=== PATIENT | female | born 1960 | race Caucasian/White ===

== ENCOUNTER → 2016-07-22 | Outpatient (CLI) | payer BC ==
[~2016-07-22] MED LIST: ASPI-983 PO; ATOR20TA66 PO; DEXA4TAB PO; ESOM40CA52 PO; GABA100C PO; HYDR-3730 PO; METO-272 PO; MULT-633 PO; OMEP20TA2 PO; ORPH100T PO; PANT40TA3 PO; PREG50CA2 PO; SMTR50T PO; SUCR1TAB PO; TRAM50TA2 PO
--- OUTSIDE RECORDS SUMMARY | 2016-07-22 11:58 | XMS REPORT | Continuity of Care Document ---
Author Author [facility] Organization [facility] Address Unknown Phone Unavailable Care Team Providers Care Sandblast Operator Name Role Phone JUVENAL OREILLY MD PCP Insurance Providers Payer Name Policy Number Subscriber Name Relationship [facility]ly [facility] [id number] Elly Bridges 18 Self / Same As Patient Advance Directives Directive Response Recorded Date/Time Advance Directives No 03/30/16 1:25am Health Care Power of Restuarant Crew Worker No 03/30/16 1:25am Organ Donor No 03/30/16 1:25am Resuscitation Status Full Code 03/30/16 1:25am Problems Active Problems Medical Problem Onset Date Status Abnormal finding on EKG Unknown Acute CAD (coronary artery disease), ione coronary artery Unknown Acute Chest pain Unknown Acute Gait instability Unknown Acute Gastric ulcer Unknown Acute Lumbar disc disease with radiculopathy Unknown Acute Nicotine dependence Unknown Acute Medications Current Home Medications Medication Dose Units Route Directions Days/Qty Instructions Start Date Multivitamin 1 Each 1 Tab Oral Daily 03/19/16 Sucralfate 1 Gm 1 Gm Oral Before Meals And At Bedtime 120 03/31/16 Pantoprazole Sodium 40 Mg 40 Mg Oral Twice A Day 60 03/31/16 Metoprolol Succinate 50 Mg 50 Mg Oral Daily 30 03/31/16 Aspirin 81 Mg 81 Mg Oral Daily 30 03/31/16 Atorvastatin Calcium 20 Mg 20 Mg Oral Bedtime 30 03/31/16 Past Home Medications Medication Directions Ordered Status Omeprazole 20 Mg Tablet.dr, 20 Mg Oral Twice A Day 07/07/11 Discontinued Sumatriptan Succinate 50 Mg Tablet, 50 Mg Oral As Directed 01/15/14 Discontinued Hydrocodone/Acetaminophen 1 Each Tablet, 1-2 Tab Oral Every 4-6HRS as needed for Pain 01/16/14 Discontinued Tramadol Hcl 50 Mg Tablet, 50 Mg Oral Every 6 Hours as needed for Pain Discontinued Orphenadrine Citrate 100 Mg Tablet.er, 50-100 Mg Oral Bedtime as needed for Muscle Spasms 03/19/16 Discontinued Dexamethasone 4 Mg Tablet, 4 Mg Oral Every 12 Hours 03/19/16 Discontinued Gabapentin 100 Mg Capsule, 200 Mg Oral Three Times A Day 03/19/16 Discontinued Esomeprazole Magnesium 40 Mg Capsule.dr, 40 Mg Oral Daily 03/29/16 Discontinued Sucralfate 1 Gm Tablet, 1 Gm Oral Before Meals And At Bedtime 03/29/16 Discontinued Social History Social History Problem Response Recorded Date/Time Alcohol Use Occasionally Uses 03/30/2016 1:26am Recreational Drug Use No 03/30/2016 1:26am Recent Foreign Travel No 03/30/2016 1:29am Recent Infectious Disease Exposure No 03/30/2016 1:29am Hospitalization with Isolation Denies 04/06/2016 6:34pm Smoking Status Current Everyday Smoker 03/30/2016 1:28am Type Used Cigarettes 04/06/2016 6:34pm Recent Hopitalizations No 03/30/2016 1:26am Hospitalization with Isolation Denies 04/06/2016 6:34pm Query Response Start Date Stop Date Smoking Status Current Everyday Smoker Hospital Discharge Instructions No hospital discharge instructions. Plan of Care Discharge Date 03/31/16 11:10am Instructions/Education Provided CARDIAC CATH DISCHARGE INSTRUC Prescriptions See Medication Section Functional Status Query Response Date Recorded Patient Orientation Person Place Time Situation Eyes Open April 06, 2016 6:34pm Comprehension Ability Understands Concepts March 30, 2016 9:00pm Allergies, Adverse Reactions, Alerts No known allergies. Immunizations No immunization records. Vital Signs Acute Vital Signs Vital Response Date/Time Temperature (Fahrenheit) 98.4 degrees F (97.6 - 99.5) 03/31/2016 8:30am Temperature (Calculated Celsius) 35.87377 degrees C (36.4 - 37.5) 03/31/2016 8:00am Temperature Source Tympanic 03/31/2016 8:00am Pulse Rate (adult) 65 bpm (60 - 90) 03/31/2016 8:00am Respiratory Rate 16 bpm (12 - 24) 03/31/2016 8:00am O2 Sat by Pulse Oximetry 95 % (88 - 100) 03/31/2016 8:00am Blood Pressure 123/73 mm Hg 03/31/2016 8:00am Blood Pressure Mean 90 mm Hg 03/31/2016 8:00am Pain Numeric Pain Scale 0-No Pain 03/31/2016 8:00am Pain Intensity 5 03/30/2016 1:52am Height (Feet) 5 feet 03/30/2016 1:45am Height (Inches) 2.00 inches 03/30/2016 1:45am Height (Calculated Centimeters) 157.939874 cm 03/30/2016 1:45am Weight (Pounds) 140 pounds 03/31/2016 6:00am Weight (Ounces) 14.0 oz 03/31/2016 6:00am Weight (Calculated Grams) 05679.826 gm 03/31/2016 6:00am Weight (Calculated Kilograms) 63.557253 kilograms 03/31/2016 6:00am Calculated BMI 25.6 03/30/2016 1:45am Capillary Refill Capillary Refill Less Than 3 Seconds 03/30/2016 4:45pm Capillary Refill Capillary Refill Less Than 3 Seconds 03/30/2016 4:45pm Results Laboratory Results Test Name Result Units Flags Reference Collection Date/Time Result Date/ Time Comments White Blood Count 14.0 10^3/uL H 4.3-11.0 03/18/2016 1:50pm 03/18/2016 2: 08pm Red Blood Count 4.38 10^6/uL 4.35-5.85 03/18/2016 1:50pm 03/18/2016 2: 08pm Hemoglobin 14.4 G/DL 11.5-16.0 03/18/2016 1:50pm 03/18/2016 2:08pm Hematocrit 43 % 35-52 03/18/2016 1:50pm 03/18/2016 2:08pm Mean Corpuscular Volume 97 FL 80-99 03/18/2016 1:50pm 03/18/2016 2: 08pm Mean Corpuscular Hemoglobin 33 PG 25-34 03/18/2016 1:50pm 03/18/2016 2: 08pm Mean Corpuscular Hemoglobin Concent 34 G/DL 32-36 03/18/2016 1:50pm 02/2016 2:08pm Red Cell Distribution Width 12.9 % 10.0-14.5 03/18/2016 1:50pm 2015 2:08pm Platelet Count 242 10^3/uL 130-400 03/18/2016 1:50pm 03/18/2016 2:08pm Mean Platelet Volume 10.3 FL 7.4-10.4 03/18/2016 1:50pm 03/18/2016 2: 08pm Neutrophils (%) (Auto) 73 % 42-75 03/18/2016 1:50pm 03/18/2016 2:08pm Lymphocytes (%) (Auto) 17 % 12-44 03/18/2016 1:50pm 03/18/2016 2:08pm Monocytes (%) (Auto) 9 % 0-12 03/18/2016 1:50pm 03/18/2016 2:08pm Eosinophils (%) (Auto) 0 % 0-10 03/18/2016 1:50pm 03/18/2016 2:08pm Basophils (%) (Auto) 0 % 0-10 03/18/2016 1:50pm 03/18/2016 2:08pm Neutrophils # (Auto) 10.2 X 10^3 H 1.8-7.8 03/18/2016 1:50pm 03/18/2016 2 :08pm Lymphocytes # (Auto) 2.4 X 10^3 1.0-4.0 03/18/2016 1:50pm 03/18/2016 2: 08pm Monocytes # (Auto) 1.3 X 10^3 H 0.0-1.0 03/18/2016 1:50pm 03/18/2016 2: 08pm Eosinophils # (Auto) 0.0 10^3/uL 0.0-0.3 03/18/2016 1:50pm 03/18/2016 2 :08pm Basophils # (Auto) 0.0 10^3/uL 0.0-0.1 03/18/2016 1:50pm 03/18/2016 2: 08pm Neutrophils % (Manual) 77 % 03/18/2016 1:50pm 03/18/2016 2:25pm Band Neutrophils 1 % 03/18/2016 1:50pm 03/18/2016 2:25pm Lymphocytes % (Manual) 15 % 03/18/2016 1:50pm 03/18/2016 2:25pm Monocytes % (Manual) 7 % 03/18/2016 1:50pm 03/18/2016 2:25pm Eosinophils % (Manual) 0 % 03/18/2016 1:50pm 03/18/2016 2:25pm Basophils % (Manual) 0 % 03/18/2016 1:50pm 03/18/2016 2:25pm Blood Morphology Comment NORMAL 03/18/2016 1:50pm 03/18/2016 2: 25pm Sodium Level 139 MMOL/L 135-145 03/18/2016 1:50pm 03/18/2016 2:24pm Potassium Level 3.9 MMOL/L 3.6-5.0 03/18/2016 1:50pm 03/18/2016 2:24pm Chloride Level 103 MMOL/L 98-107 03/18/2016 1:50pm 03/18/2016 2:24pm Carbon Dioxide Level 22 MMOL/L 21-32 03/18/2016 1:50pm 03/18/2016 2: 24pm Anion Gap 14 MMOL/L 5-14 03/18/2016 1:50pm 03/18/2016 2:24pm Blood Urea Nitrogen 13 MG/DL 7-18 03/18/2016 1:50pm 03/18/2016 2:24pm Creatinine 0.73 MG/DL 0.60-1.30 03/18/2016 1:50pm 03/18/2016 2:24pm BUN/Creatinine Ratio 18 03/18/2016 1:50pm 03/18/2016 2:24pm Estimat Glomerular Filtration Rate > 60 03/18/2016 1:50pm 2015 2:24pm GFR INTERPRETIVE DATA UNITS FOR ESTIMATED GFR (eGFR): mL/min/1.73 M2 REFERENCE RANGE FOR ESTIMATED GFR (eGFR) eGFR NORMAL eGFR >60 MODERATELY DECREASED eGFR 30-59 SEVERLY DECREASED eGFR 15-29 KIDNEY FAILURE <15 (OR DIALYSIS) Glucose Level 89 MG/DL 70-105 03/18/2016 1:50pm 03/18/2016 2:24pm Calcium Level 10.5 MG/DL H 8.5-10.1 03/18/2016 1:50pm 03/18/2016 2:24pm Total Bilirubin 0.5 MG/DL 0.1-1.0 03/18/2016 1:50pm 03/18/2016 2:24pm Alkaline Phosphatase 90 U/L 40-136 03/18/2016 1:50pm 03/18/2016 2:24pm Aspartate Amino Transf (AST/SGOT) 32 U/L 5-34 03/18/2016 1:50pm 2015 2:24pm Alanine Aminotransferase (ALT/SGPT) 56 U/L H 0-55 03/18/2016 1:50pm 03/18 2:24pm Total Protein 7.4 G/DL 6.4-8.2 03/18/2016 1:50pm 03/18/2016 2:24pm Albumin 4.5 G/DL 3.2-4.5 03/18/2016 1:50pm 03/18/2016 2:24pm Pending Laboratory Results Test Name Collection Date/Time Procedures Procedure Status Date Provider(s) Esophagogastroduodenoscopy (EGD) with dilation Completed 03/31/16 BEKA LEVY DO Esophagogastroduodenoscopy (EGD) Active 03/31/16 BEKA LEVY DO Tracing only of electrocardiogram Completed 03/25/16 JADA BUCHANAN Tracing only of electrocardiogram Completed 03/29/16 FAUSTINO COTE DO Tracing only of electrocardiogram Completed 03/30/16 JUVENAL OREILLY MD Color Doppler echocardiography Active 03/30/16 NATIVIDAD CONTRERAS MD [facility] Tracing only of electrocardiogram Completed 03/30/16 NATIVIDAD CONTRERAS MD [facility] Encounters Encounter Location Arrival/Admit Date Discharge/Depart Date Attending Provider Departed [facility] 03/29/16 11:50pm 03/31/16 11:10am JUVENAL OREILLY MD Registered Clinic [facility] 03/25/16 4:38pm JADA BUCHANAN Discharged Inpatient (obs) [facility] 03/18/16 6:50pm 10:20am JUVENAL OREILLY MD Recent Diagnosis Chest pain Gait instability Gastric ulcer Lumbar disc disease with radiculopathy Nicotine dependence
--- NOTE | 2016-07-31 09:07 | ECHOCARDIOGRAPHY REPORT ---
PROCEDURE PHYSICIAN: NATIVIDAD HACKETT DATE OF PROCEDURE: 07/22/2016 TWO DIMENSIONAL ECHOCARDIOGRAM REPORT PRIMARY PHYSICIAN: Dr. Costello OTHER PHYSICIAN: Dr. Hackett REFERRING PHYSICIAN: ORDERING PHYSICIAN: Livier Yanez APRN INDICATION FOR THE PROCEDURE: Coronary artery disease, hypertension MEASUREMENTS DERIVED VALUES LV DIAMETER (LAX) NORMALS NORMALS Diastolic 4.5 (3.6-5.2) Eject. Fract. (60%+/-6%) Systolic (2.3-3.9) Diastolic Vol. % Shortening (0.22-0.42) Systolic Vol. Aortic Root 2.2 IVS THICKNESS Diastolic 1. (0.6-1.1) LVPW THICKNESS Diastolic 1. (0.6-1.1) LA DIAMETER Systolic 3.9 (2.1-3.7) DESCRIPTION: Two-dimensional echocardiography shows normal global left ventricular systolic function with normal regional wall motion. Aortic, mitral and tricuspid valve leaflets show good leaflet excursion. There is no significant pericardial effusion. No distinct regional wall motion abnormalities are seen. Doppler imaging shows trivial, mitral, tricuspid and pulmonic regurgitation. The aortic valve appears to be trileaflet. There is no Doppler evidence of any significant valvular stenosis. Pulmonary artery systolic pressure is estimated to be approximately 30 mmHg. There is no evidence of significant intracardiac shunt on this transthoracic echocardiographic study. Inferior vena cava appears mildly dilated but does exhibit inspiratory collapse. CONCLUSIONS: 1. Normal global left ventricular systolic function with normal regional wall motion and left ventricular ejection fraction of approximately 50%. 2. Trivial, mitral, tricuspid and pulmonic regurgitation. 3. No evidence of any significant valvular stenosis. 4. Pulmonary artery systolic pressure is estimated to be approximately 30 mmHg. Job ID: [id number] Dictated Date: 07/30/2016 15:23:00 Manager Quantitative Date: 07/31/2016 09:01:54 / [place]
== END ==
LOC: CARD 11:52
PROVIDERS: ATTEND Nurse Practitioner Family
DX: I25.10 Atherosclerotic heart disease of native coronary artery without angina pectoris (principal); I10 Essential (primary) hypertension; I34.1 Nonrheumatic mitral (valve) prolapse; R00.2 Palpitations
CPT/HCPCS: 93306

== ENCOUNTER 2016-09-24 10:54 | Outpatient (CLI) | payer BC ==
[~2016-09-24] VITALS: Ht 157.5 cm; Wt 63.9 kg
[2016-09-24] MEDS ORDERED: TRIAMCINOLONE ACET (KENALOG-40) 40 MG/ML 1 ML VIAL ONE (10:58)
[2016-09-24] MEDS ORDERED: BUPIVACAINE 0.25% 30 ML (SENSORCAINE) VIAL ONE (10:58)
[2016-09-24 11:10] VITALS: BP 155/98
[2016-09-24 11:47] VITALS: BP 167/80
--- NOTE | 2016-09-24 12:33 | Pain Medicine-Procedure ---
Procedure Pre-Op/Post-Op Diagnosis Diagnosis: disc disorder with radiculopathy, lumbar Indications for Operation Low back pain Attending Surgeon Hermann Procedure Date of Service: September 24, 2016 Procedure: Lumbar Epidural Steroid Injection at the L4-L5 level under Fluoroscopic Guidance Procedure: Patient was identified in the holding area. After risks, benefits, and alternatives were discussed with the patient, informed consent was obtained. Patient was brought to the fluoroscopy suite and placed prone on the procedure room table. A time out was performed. Vital signs were monitored throughout the procedure. The patients low back was prepped and draped in the usual sterile fashion. The patients skin was anesthetized using 2% Lidocaine. A Tuohy needle was inserted and advanced to the L4-L5 epidural space under fluoroscopic guidance using the loss of resistance technique and intermittent projection of fluoroscopy. There was no paresthesia with needle placement. The needle position was confirmed in both the AP and lateral view. After negative aspiration 2ml of contrast was injected under live fluoroscopy which showed good spread of the contrast in the epidural space at the appropriate level, there was no intravascular or subarachnoid spread. Again, after negative aspiration for heme or CSF, 2 ml of 0.25% Bupivicaine, 2ml of preservative free normal saline, and 80mg of Kenalog was injected. The needle was removed and a sterile bandage was placed and the patient was transferred to the recovery area in stable condition. After a brief period of observation, patient was discharged to home with no new neurological deficits and no apparent complications. Complications None HANK HESTER MD September 24, 2016 12:33 pm
== END 2016-09-24 11:49 | disposition home or self-care (01) ==
LOC: CARD 10:54
PROVIDERS: ATTEND Pain Medicine Pain Medicine
DX: M51.16 Intervertebral disc disorders with radiculopathy, lumbar region (principal)
CPT/HCPCS: 62323

== ENCOUNTER 2017-06-06 09:00 | Outpatient (CLI) | payer BC ==
[~2017-06-06] VITALS: Ht 157.5 cm; Wt 59.4 kg
[~2017-06-06 09:00] MED LIST changes: -METO-272 PO; +METO-370 PO
[2017-06-06] MEDS ORDERED: SUCR1TAB PO (09:34)
[2017-06-06] MEDS ORDERED: ASPI-586 PO (09:34)
[2017-06-06] MEDS ORDERED: METO-370 PO (09:34)
[2017-06-06] MEDS ORDERED: PANT40TA3 PO (09:34)
[2017-06-06] MEDS ORDERED: ATOR20TA66 PO (09:34)
== END 2017-06-06 09:36 ==
LOC: PREOP 09:00
PROVIDERS: ATTEND Surgery
DX: Z01.818 Encounter for other preprocedural examination (principal); K22.70 Barrett's esophagus without dysplasia

== ENCOUNTER 2017-06-07 08:44 | Day surgery (SDC) | payer BC ==
[~2017-06-07] VITALS: Ht 157.5 cm; Wt 59.4 kg
[~2017-06-07 08:44] MED LIST changes: +ASPI-586 PO
[2017-06-07] MEDS ORDERED: LACTATED RINGERS 1,000 ML IV STA (09:03)
[2017-06-07 09:22] VITALS: BP 128/72
--- NOTE | 2017-06-07 10:26 | Progress Note-Pre Operative ---
Pre-Operative Progress Note H&P Reviewed The H&P was reviewed, patient examined and no changes noted. Date Seen by Provider: Jun 07, 2017 Time Seen by Provider: 10:25 Date H&P Reviewed: Jun 07, 2017 Time H&P Reviewed: 10:25 Pre-Operative Diagnosis: history of shannon's, hiatal hernia, gerd BEKA LEVY DO Jun 07, 2017 10:26
[2017-06-07] MEDS ORDERED: MIDAZOLAM 2 MG/2 ML (VERSED) VIAL ONE (10:35)
[2017-06-07] MEDS ORDERED: proPOfol 200 MG/20 ML (DIPRIVAN) VIAL IV ONE (10:35)
--- NOTE | 2017-06-07 11:02 | Progress Note-Post Operative ---
Post-Operative Progess Note Surgeon (s)/Laboratory Sample Carrier (s) Surgeon BEKA LEVY DO Laboratory Sample Carrier: na Pre-Operative Diagnosis history of shannon's, hiatal hernia, gerd Post-Operative Diagnosis hiatal hernia, short segment barretts Procedure & Operative Findings Date of Procedure 06/07/17 Procedure Performed/Findings egd c biopsies Anesthesia Type per [facility] Estimated Blood Loss Estimated blood loss (mL): scant Specimens/Packing Specimens Removed ge junction short segment barretts BEKA LEVY DO Jun 07, 2017 11:02
--- NOTE | 2017-06-07 11:03 | Discharge Inst-Simple/Standard ---
Discharge Inst-Standard Patient Instructions/Follow Up Plan of Care/Instructions/FU: 2 weeks Sarah Activity as Tolerated: Yes Discharge Diet: Regular Diet BEKA LEVY DO Jun 07, 2017 11:03
[2017-06-07] MEDS ORDERED: HURRICAINE EXT TUBE (BENZOCAINE) ONE (11:06)
[2017-06-07 11:15] VITALS: BP 97/59
[2017-06-07 11:55] VITALS: BP 132/76
[2017-06-07] MEDS ORDERED: HURRICAINE EXT TUBE (BENZOCAINE) XX ONE (12:00)
[2017-06-07 12:10] VITALS: BP 132/76
--- NOTE | 2017-06-07 16:26 | OPERATIVE REPORT ---
DATE OF SERVICE: 06/07/2017 PREOPERATIVE DIAGNOSES: Sin's esophagus, hiatal hernia, gastroesophageal reflux disease. POSTOPERATIVE DIAGNOSES: Hiatal hernia and short segment Sin's. PROCEDURE: EGD with biopsies four quadrants. SURGEON: Beka Smith DO ANESTHESIA: Per MDA. ESTIMATED BLOOD LOSS: Scant. COMPLICATIONS: None. INDICATIONS: The patient is a 56-year-old female with history of Sin's esophagus. She understands risks and benefits of procedure and wished to proceed with procedure. Consent was signed in the chart. DESCRIPTION OF PROCEDURE: The patient was taken to the endoscopy suite, placed in left lateral recumbent position. Timeout was performed. Scope was inserted into mouth, down into esophagus, stomach and into the duodenum. There are no polyps, masses or ulcerations. The scope was then slowly retracted back into the stomach, which was further insufflated. There are no polyps, masses or ulcerations. . Scope was retroflexed noting a small hiatal hernia. Scope was returned to its normal position, slowly withdrawn and there was a short segment of Sin's at the GE junction 4 quadrant biopsy was performed. No other pathology noted. The scope was slowly retracted back until completely removed. The patient tolerated the procedure well without any complications. She was taken to recovery room in stable condition. RECOMMENDATIONS: The patient will follow up on biopsies. I would recommend repeat an EGD in approximately 2 to 3 years for continued surveillance. Job ID: [id number] DocumentID: [id number] Dictated Date: 06/07/2017 11:06:34 Photonics Engineering Technician Date: 06/07/2017 16:25:22 Dictated By: BEKA SMITH DO
== END 2017-06-07 12:00 | disposition home or self-care (01) ==
LOC: ENDO 08:44
PROVIDERS: ATTEND Surgery
DX: K22.70 Barrett's esophagus without dysplasia (principal); K21.9 Gastro-esophageal reflux disease without esophagitis; K44.9 Diaphragmatic hernia without obstruction or gangrene; I48.0 Paroxysmal atrial fibrillation; I25.10 Atherosclerotic heart disease of native coronary artery without angina pectoris; I10 Essential (primary) hypertension; F17.210 Nicotine dependence, cigarettes, uncomplicated; Z79.82 Long term (current) use of aspirin; Z79.899 Other long term (current) drug therapy

== ENCOUNTER → 2018-06-06 | Outpatient (CLI) | payer BC ==
--- NOTE | 2018-06-06 11:40 | Diagnostic Imaging Report ---
PROCEDURE: US Gallbladder. TECHNIQUE: Multiple real-time grayscale images were obtained over the right upper quadrant in various projections. INDICATION: Epigastric pain. FINDINGS: As noted on the previous exam of 03/30/2016, the liver is more echogenic than usually seen. This appearance does suggest fatty metamorphosis. There is no focal mass involving the liver and the biliary tree is not abnormally dilated. The liver itself is not enlarged. Spectral and color flow imaging of the portal vein and the hepatic vein show that the veins are patent and that there is normal direction of flow within the veins. There is no evidence for cholelithiasis or acute cholecystitis and the common bile duct is not dilated. The right kidney is unremarkable. The pancreas and proximal aorta are partially obscured by bowel gas. IMPRESSION: 1. There is no acute abnormality of the right upper quadrant. In particular, there is no sign of acute cholecystitis. 2. If clinical concern regarding an underlying abnormality of the gallbladder persists and further evaluation is desired, then a nuclear medicine hepatobiliary scan will be recommended. 3. The appearance of the liver does suggest fatty metamorphosis. Dictated by: Dictated on workstation # [id number]
== END ==
LOC: RAD 07:35
PROVIDERS: ATTEND Surgery
DX: R10.13 Epigastric pain (principal)
CPT/HCPCS: 76705

== ENCOUNTER → 2018-06-16 | Outpatient (CLI) | payer BC ==
[~2018-06-16] MED LIST changes: +CATHETER FLUSH 10 ML SYR IV PRN
--- NOTE | 2018-06-16 21:13 | Diagnostic Imaging Report ---
INDICATION: Epigastric pain. Patient was administered 5.4 mCi technetium-99m Choletec intravenously and imaging of the abdomen was performed. At one hour, patient ingested 8 ounces of Ensure and gallbladder ejection fraction was calculated. FINDINGS: There is homogeneous uptake of activity by the liver. There is prompt excretion of activity into the common duct with passage into the gallbladder. There is also passage into the small bowel. Gallbladder ejection fraction is normal at 55%. IMPRESSION: Normal HIDA scan and gallbladder ejection fraction. Dictated by: Dictated on workstation # [id number]
== END ==
LOC: CARD 11:21
PROVIDERS: ATTEND Surgery
DX: R10.13 Epigastric pain (principal)
CPT/HCPCS: 78227

== ENCOUNTER 2018-07-06 08:30 | Outpatient (CLI) | payer BC ==
[~2018-07-06] VITALS: Ht 157.5 cm; Wt 59.4 kg
[~2018-07-06 08:30] MED LIST changes: -CATHETER FLUSH 10 ML SYR IV PRN
== END 2018-07-06 08:52 ==
LOC: PREOP 08:30
PROVIDERS: ATTEND Surgery
DX: Z01.818 Encounter for other preprocedural examination (principal)

== ENCOUNTER 2018-07-07 09:56 | Day surgery (SDC) | payer BC ==
[~2018-07-07] VITALS: Ht 157.5 cm; Wt 59.4 kg
[2018-07-07] MEDS ORDERED: LACTATED RINGERS 1,000 ML IV ONE (10:03)
[2018-07-07 10:05] VITALS: BP 122/95
[2018-07-07] MEDS ORDERED: LACTATED RINGERS 1,000 ML IV STA (10:14)
[2018-07-07] MEDS ORDERED: HURRICAINE EXT TUBE (BENZOCAINE) XX PRN (10:15)
--- NOTE | 2018-07-07 11:21 | Progress Note-Pre Operative ---
Pre-Operative Progress Note H&P Reviewed The H&P was reviewed, patient examined and no changes noted. Date Seen by Provider: Jul 07, 2018 Time Seen by Provider: 11:21 Date H&P Reviewed: Jul 07, 2018 Time H&P Reviewed: 11:21 Pre-Operative Diagnosis: epigastric abdominal pain BEKA LEVY DO Jul 07, 2018 11:21
[2018-07-07] MEDS ORDERED: fentaNYL INJECTION 100 MCG/2 ML AMP ONE (11:37)
[2018-07-07] MEDS ORDERED: LIDOCAINE JELLY 2% 6 ML SYRINGE ONE (11:37)
[2018-07-07] MEDS ORDERED: proPOfol 200 MG/20 ML (DIPRIVAN) VIAL IV ONE (12:02)
[2018-07-07] MEDS ORDERED: MIDAZOLAM 2 MG/2 ML (VERSED) VIAL ONE (12:02)
--- NOTE | 2018-07-07 12:18 | Progress Note-Post Operative ---
Post-Operative Progess Note Surgeon (s)/Registered Radiation Therapist (s) Surgeon BEKA LEVY DO Registered Radiation Therapist: na Pre-Operative Diagnosis epigastric abdominal pain Post-Operative Diagnosis small hiatal hernia Procedure & Operative Findings Date of Procedure 07/07/18 Procedure Performed/Findings egd c biopsies Anesthesia Type per mda Estimated Blood Loss Estimated blood loss (mL): na Specimens/Packing Specimens Removed antrum, ge BEKA LEVY DO Jul 07, 2018 12:18
--- NOTE | 2018-07-07 12:19 | Discharge Inst-Simple/Standard ---
Discharge Inst-Standard Patient Instructions/Follow Up Plan of Care/Instructions/FU: 2 weeks carmen Activity as Tolerated: Yes Discharge Diet: Regular Diet BEKA LEVY DO Jul 07, 2018 12:19
[2018-07-07] MEDS ORDERED: HURRICAINE EXT TUBE (BENZOCAINE) ONE (12:34)
--- NOTE | 2018-07-07 12:34 | Anesthesia-General Post-Op ---
MAC Patient Condition Mental Status/LOC: Same as Preop Cardiovascular: Satisfactory Nausea/Vomiting: Absent Respiratory: Satisfactory Pain: Controlled Complications: Absent Post Op Complications Complications None Follow Up Care/Instructions Patient Instructions None needed. Anesthesiology Discharge Order Discharge Order Patient is doing well, no complaints, stable vital signs, no apparent adverse anesthesia problems. No complications reported per nursing. ADILIA GODOY CRNA Jul 07, 2018 12:34
[2018-07-07 12:35] VITALS: BP 142/92
[2018-07-07 12:59] VITALS: BP 134/92
[2018-07-07 13:00] VITALS: BP 134/92
--- NOTE | 2018-07-07 23:24 | OPERATIVE REPORT ---
DATE OF SERVICE: 07/07/2018 PREOPERATIVE DIAGNOSIS: Epigastric abdominal pain. POSTOPERATIVE DIAGNOSIS: Small hiatal hernia. PROCEDURE: EGD with biopsy. SURGEON: Beka Smith DO. ANESTHESIA: Per MDA. ESTIMATED BLOOD LOSS: None. COMPLICATIONS: None. INDICATIONS: The patient is a 58-year-old female who has been having epigastric abdominal pain. She had gallbladder workup, which was negative. She understands risks and benefits of procedure and wished to proceed with procedure. Consent was signed in the chart. DESCRIPTION OF PROCEDURE: The patient was taken to the endoscopy suite, placed in left lateral recumbent position. Timeout was performed. Scope was inserted into the mouth, down the esophagus, stomach and into the duodenum without difficulty. There were no polyps, masses or ulcerations in the duodenum. Scope was slowly retracted back into the stomach where it was further insufflated some slight erythematous changes. Biopsy was obtained. Scope was retroflexed noting a small gastric benign polyp and a small hiatal hernia. Scope was returned to its normal position, slowly withdrawn to the distal esophagus, which had some slight erythematous changes. Biopsy was obtained. Scope was then slowly retracted back to completely remove, noting no other pathology. The patient tolerated procedure well without any complications. She was taken to recovery room in stable condition. RECOMMENDATIONS: The patient will continue on current medications. She will follow up in 2 weeks to see how her symptoms and follow up on her pathology. Job ID: [id number] DocumentID: [id number] Dictated Date: 07/07/2018 12:31:33 Embedded Linux Engineer Date: 07/07/2018 23:23:50 Dictated By: BEKA SMITH DO
--- OUTSIDE RECORDS SUMMARY | 2018-07-09 09:06 | XMS REPORT | CCD ---
Author Author Vale Youngblood Organization [facility] Address [address] [place] [address] Phone Care Team Providers Care Drug Safety Assistant Name Role Phone PP Unavailable CCM Unavailable Summary Purpose Interface Exchange Insurance Providers Payer name Policy type / Coverage type Covered green party ID Effective Begin Date Effective End Date [facility] [id number] Unknown Family history Father Diagnosis Age At Onset Coronary Artery Disease Unknown Arthritis Unknown Grandmother Diagnosis Age At Onset Breast cancer Unknown Mother Diagnosis Age At Onset Arthritis Unknown Son Diagnosis Age At Onset Arthritis Unknown Social History Social History Element Codes Description Effective Dates Marital status Unknown [place] 09/27/2014 Marital status Unknown 09/27/2014 Number of children Unknown 2 09/27/2014 Number of children Unknown 2 09/27/2014 Employment Unknown Currently employed [employer] 09/27/[address]: 08359957 Currently smokes tobacco 09/27/[address]: 43660349 Currently smokes tobacco 09/27/2014 Number of cigarettes/day Unknown 10 ( Half a pack) 09/27/2014 Number of cigarettes/day Unknown 10 ( Half a pack) 09/27/[address]: 909486 Currently drinks alcohol 09/27/[address]: 900769 Currently drinks alcohol 09/27/2014 Frequency of drinks SNOMED CT: 847077716 1-4 drinks per week 09/27/2014 Frequency of drinks SNOMED CT: 211442116 1-4 drinks per week 09/27/2014 Allergies, Adverse Reactions, Alerts Substance Reaction Codes Entered Date Inactivated Date Status * NO KNOWN DRUG ALLERGIES Unknown 09/27/2014 No Inactive Date Active * NO KNOWN DRUG ALLERGIES Unknown 09/27/2014 No Inactive Date Active Past Medical History Illness Codes Condition Status Onset Date Resolved Date Gastro-esophageal reflux disease with esophagitis ICD-9: 530.11 ICD-10: K21.0 Active 03/24/2016 Unknown Hypertension Unknown Active 12/28/2017 Unknown Dysuria ICD-9: 788.1 ICD-10: R30.0 Active 12/28/2017 Unknown Essential (primary) hypertension ICD-9: 401.9 ICD-10: I10 Active 03/24/2016 Unknown Generalized anxiety disorder ICD-9: 300.02 ICD-10: F41.1 Active 07/22/2016 Unknown Low back pain ICD-9: 724.2 ICD-10: M54.5 Active 03/24/2016 Unknown Pelvic and perineal pain ICD-9: [id number] ICD-10: R10.2 Active 03/15/2016 Unknown Pain in left finger(s) ICD-9: 729.5 ICD-10: M79.645 Active 08/12/2015 Unknown Paresthesia of skin ICD-9: 782.0 ICD-10: R20.2 Active 08/12/2015 Unknown Migraine, unspecified, not intractable, without status migrainosus ICD-9: 346.90 ICD-10: G43.909 Active 07/02/2015 Unknown Other hypertrophic disorders of the skin ICD-9: 701.9 ICD-10: L91.8 Active 07/02/2015 Unknown Well adult exam ICD-9 : V70.0 Active 09/26/2014 Unknown Problems Condition Codes Effective Dates Condition Status Gastro-esophageal reflux disease with esophagitis ICD-9: 530.11 ICD-10: K21.0 03/24/2016 Active Hypertension Unknown 12/28/2017 Active Dysuria ICD-9: 788.1 ICD-10: R30.0 12/28/2017 Active Essential (primary) hypertension ICD-9: 401.9 ICD-10: I10 03/24/2016 Active Generalized anxiety disorder ICD-9: 300.02 ICD-10: F41.1 07/22/2016 Active Low back pain ICD-9: 724.2 ICD-10: M54.5 03/24/2016 Active Pelvic and perineal pain ICD-9: QGU5104 ICD-10: R10.2 03/15/2016 Active Pain in left finger(s) ICD-9: 729.5 ICD-10: M79.645 08/12/2015 Active Paresthesia of skin ICD-9: 782.0 ICD-10: R20.2 08/12/2015 Active Migraine, unspecified, not intractable, without status migrainosus ICD-9: 346.90 ICD-10: G43.909 07/02/2015 Active Other hypertrophic disorders of the skin ICD-9: 701.9 ICD-10: L91.8 07/02/2015 Active Well adult exam ICD-9 : V70.0 09/26/2014 Active Medications Medication Codes Instructions Start Date Stop Date Status Fill Instructions Carafate 1 gram tablet RxNorm: 774632 1 TABLET(S) PO AC & HS 08/24/2018 Active dissolve in water and drink as slurry metoprolol succinate ER 50 mg tablet,extended release 24 hr RxNorm: 339776 1 Tablet(s) PO daily 12/28/2017 04/26/2018 Inactive Imitrex 50 mg tablet RxNorm: 062037 1 Tablet(s) PO PRN 2017 No Stop Date Active [SAVINGS FOR NON-COVERED DRUGS -- BIN:[id number], PCN: [id number], Group: XXXXX, ID # [id number], Questions: . THIS IS NOT INSURANCE.] Protonix 40 mg tablet,delayed release RxNorm: 324475 1 Tablet(s) PO daily 12/28/2017 01/26/2018 Inactive Bactrim DS 800 mg-160 mg tablet RxNorm: 990663 1 Tablet(s) PO BID 12/28/2017 01/06/2018 Inactive Carafate 1 gram tablet RxNorm: 191796 1 TABLET(S) PO AC & HS 12/15/2017 Inactive dissolve in water and drink as slurry Carafate 1 gram tablet RxNorm: 083374 1 TABLET(S) PO AC & HS 10/26/2016 Inactive dissolve in water and drink as slurry Xanax 0.25 mg tablet RxNorm: 396442 1 Tablet(s) PO QDAY PRN No Stop Date Active Carafate 1 gram tablet RxNorm: 029926 1 Tablet(s) PO AC & HS 08/20/2016 Inactive dissolve in water and drink as slurry Carafate 1 gram tablet RxNorm: 768798 1 Tablet(s) PO AC & HS 07/21/2016 Inactive dissolve in water and drink as slurry Protonix 40 mg tablet,delayed release RxNorm: 077098 1 Tablet(s) PO BID 07/22/2016 08/04/2016 Inactive Protonix 40 mg tablet,delayed release RxNorm: 608105 1 Tablet(s) PO BID 04/02/2016 04/01/2016 Inactive Protonix 40 mg tablet,delayed release RxNorm: 402887 1 Tablet(s) PO BID 04/02/2016 04/15/2016 Inactive Carafate 1 gram tablet RxNorm: 729445 1 Tablet(s) PO AC & HS 04/03/2016 Inactive dissolve in water and drink as slurry Nexium 40 mg capsule,delayed release RxNorm: 857836 1 Capsule(s) PO daily 03/24/2016 07/21/2016 Inactive if nexium is failed by insurance we will order prilosec 40mg daily #30 Nexium 40 mg capsule,delayed release RxNorm: 851794 1 Capsule(s) PO daily 03/24/2016 03/23/2016 Inactive if nexium is failed by insurance we will order prilosec 40mg daily #30 Norvasc 5 mg tablet RxNorm: 903952 1 Tablet(s) PO daily 201509/12/2015 Inactive Norvasc 5 mg tablet RxNorm: 761489 1 Tablet(s) PO daily 201508/13/2015 Inactive Imitrex 50 mg tablet RxNorm: 489322 1 Tablet(s) PO PRN 201512/27/2017 Inactive [SAVINGS FOR NON-COVERED DRUGS -- BIN:[id number], PCN: [id number], Group: XXXXX, ID # [id number], Questions: . THIS IS NOT INSURANCE.] Imitrex 50 mg tablet RxNorm: 632640 1 Tablet(s) PO PRN 201407/02/2015 Inactive [SAVINGS FOR NON-COVERED DRUGS -- BIN:[id number], PCN: ASPROD1, Group: XXXXX, ID # [id number], Questions: . THIS IS NOT INSURANCE.] aspirin 81 mg tablet RxNorm: 371228 1 Tablet(s) PO daily No Start Date Active metoprolol succinate ER 50 mg tablet,extended release 24 hr RxNorm: 334864 1 Tablet(s) PO daily No Start Date 2017 Inactive Medication Administered No Medication Administered data Immunizations Vaccine Codes Date Status Influenza CVX: 141 02/16/2018 completed Influenza CVX: 141 02/16/2017 completed Influenza CVX: 141 03/02/2016 completed Influenza CVX: 141 02/21/2015 completed Influenza CVX: 141 03/09/2014 completed Assessments Condition Codes Effective Dates Gastro-esophageal reflux disease with esophagitis ICD-10: K21.0 ICD-9: 530.11 05/19/2018 Dysuria ICD-10: R30.0 ICD-9: 788.1 12/28/2017 Essential (primary) hypertension ICD-10: I10 ICD-9: 401.9 12/28/2017 Generalized anxiety disorder ICD-10: F41.1 ICD-9: 300.02 07/22/2016 Low back pain ICD-10: M54.5 ICD-9: 724.2 03/25/2016 Pelvic and perineal pain ICD-10: R10.2 ICD-9: UYC5014 03/16/2016 Paresthesia of skin ICD-10: R20.2 ICD-9: 782.0 08/13/2015 Pain in left finger(s) ICD-10: M79.645 ICD-9: 729.5 08/13/2015 Migraine, unspecified, not intractable, without status migrainosus ICD-10: G43.909 ICD-9: 346.90 07/03/2015 Other hypertrophic disorders of the skin ICD-10: L91.8 ICD-9: 701.9 07/03/2015 Well adult exam ICD-9: V70.0 09/27/2014 Reason For Visit Reason For Visit Effective Dates Notes abdominal pain 05/19/2018 urinary frequency 12/28/2017 anxiety 07/22/2016 chest pain/pressure 03/25/2016 pelvic pain 03/16/2016 blood pressure followup 09/11/2015 finger and hand pain 08/13/2015 skin lesion 07/03/2015 headache 09/27/2014 Results Observation Observation Code Item Item Code Result Date Culture Urine [id number] URINE CULTURE SEE NOTES 01/02/2018 Urine Culture Ucult Preliminary NO Growth Day 1 12/31/2017 Urine Culture Ucult Complete Growth of aerobe sent to ref lab 12/31/2017 Cbc With Differential Ord2 WBC 12.88 K/ul 03/16/2016 Cbc With Differential Ord2 RBC 4.07 M/ul 03/16/2016 Cbc With Differential Ord2 HGB 13.6 g/dl 03/16/2016 Cbc With Differential Ord2 Neut% 68.4 % 03/16/2016 Cbc With Differential Ord2 HCT 41.3 % 03/16/2016 Cbc With Differential Ord2 MCV 101.5 fl 03/16/2016 Cbc With Differential Ord2 Lymph% 23.5 % 03/16/2016 Cbc With Differential Ord2 MCH 33.4 pg 03/16/2016 Cbc With Differential Ord2 Cotton% 7.7 % 03/16/2016 Cbc With Differential Ord2 Eos% 0.2 % 03/16/2016 Cbc With Differential Ord2 MCHC 32.9 pg 03/16/2016 Cbc With Differential Ord2 PLT 242 K/ul 03/16/2016 Cbc With Differential Ord2 Baso% 0.2 % 03/16/2016 Cbc With Differential Ord2 Neut ABS# 8.81 K/ul 03/16/2016 Cbc With Differential Ord2 RDW 13.6 % 03/16/2016 Cbc With Differential Ord2 Lymph ABS# 3.03 K/ul 03/16/2016 Cbc With Differential Ord2 Cotton ABS# 1.0 K/ul 03/16/2016 Cbc With Differential Ord2 Eos ABS# 0.0 K/ul 03/16/2016 Cbc With Differential Ord2 Baso ABS# 0.0 K/ul 03/16/2016 Comp Metabolic Dwj281 NA 138 mEq/L 03/16/2016 Comp Metabolic Svh217 K 4.0 mEq/L 03/16/2016 Comp Metabolic Yvw161 CL 106 mEq/L 03/16/2016 Comp Metabolic Fom787 CO2 25.0 mEq/L 03/16/2016 Comp Metabolic Opb293 ANION GAP 11 03/16/2016 Comp Metabolic Jjl655 GLUCOSE 91 mg/dL 03/16/2016 Comp Metabolic Iop075 Creat 0.7 mg/dL 03/16/2016 Comp Metabolic Ilx839 eGFR 92 ml/min/1.73m2 03/16/2016 Comp Metabolic Jpr707 BUN 17 mg/dL 03/16/2016 Comp Metabolic Dfz781 B/C Ratio 24.3 Ratio 03/16/2016 Comp Metabolic Vqt687 CALCIUM 9.1 mg/dL 03/16/2016 Comp Metabolic Mrv917 ALK PHOS 80 U/L 03/16/2016 Comp Metabolic Uud998 AST(SGOT) 18 U/L 03/16/2016 Comp Metabolic Wlu250 ALT(SGPT) 29 U/L 03/16/2016 Comp Metabolic Dfd263 BILI T 0.4 mg/dL 03/16/2016 Comp Metabolic Rda517 ALBUMIN 4.2 g/dL 03/16/2016 Comp Metabolic Bjp649 TPRO 6.4 g/dL 03/16/2016 Comp Metabolic Xet461 GLOB 2.2 g/dL 03/16/2016 Comp Metabolic Iwz878 A/G Ratio 1.9 Ratio 03/16/2016 Comp Metabolic Mbs188 Osmo 277 mOsmo 03/16/2016 Tsh Ord6 hTSH II 1.76 uIU/mL 07/04/2015 Cbc With Differential Ord2 WBC 8.94 K/ul 07/04/2015 Cbc With Differential Ord2 RBC 4.14 M/ul 07/04/2015 Cbc With Differential Ord2 HGB 13.6 g/dl 07/04/2015 Cbc With Differential Ord2 Neut% 53.4 % 07/04/2015 Cbc With Differential Ord2 HCT 43.2 % 07/04/2015 Cbc With Differential Ord2 Lymph% 36.7 % 07/04/2015 Cbc With Differential Ord2 MCV 104.3 fl 07/04/2015 Cbc With Differential Ord2 Cotton% 8.2 % 07/04/2015 Cbc With Differential Ord2 MCH 32.9 pg 07/04/2015 Cbc With Differential Ord2 Eos% 1.3 % 07/04/2015 Cbc With Differential Ord2 MCHC 31.5 pg 07/04/2015 Cbc With Differential Ord2 Baso% 0.4 % 07/04/2015 Cbc With Differential Ord2 PLT 225 K/ul 07/04/2015 Cbc With Differential Ord2 RDW 14.9 % 07/04/2015 Cbc With Differential Ord2 Neut ABS# 4.77 K/ul 07/04/2015 Cbc With Differential Ord2 Lymph ABS# 3.28 K/ul 07/04/2015 Cbc With Differential Ord2 Cotton ABS# 0.7 K/ul 07/04/2015 Cbc With Differential Ord2 Eos ABS# 0.1 K/ul 07/04/2015 Cbc With Differential Ord2 Baso ABS# 0.0 K/ul 07/04/2015 Cbc With Differential Ord2 New Analyzer Notice Please note new ref ranges starting 05-21-2015 due to implemntation of new five part differential hematolgy analyzer. 07/04/2015 Comp Metabolic Xgc426 NA 138 mEq/L 07/04/2015 Comp Metabolic Ikc994 K 4.1 mEq/L 07/04/2015 Comp Metabolic Wvt086 CL 103 mEq/L 07/04/2015 Comp Metabolic Uvk367 CO2 24.0 mEq/L 07/04/2015 Comp Metabolic Ute011 ANION GAP 15 07/04/2015 Comp Metabolic Bvj493 GLUCOSE 78 mg/dL 07/04/2015 Comp Metabolic Fwe316 Creat 0.8 mg/dL 07/04/2015 Comp Metabolic Yjx135 eGFR 83 ml/min/1.73m2 07/04/2015 Comp Metabolic Oma031 BUN 16 mg/dL 07/04/2015 Comp Metabolic Vxi708 B/C Ratio 20.8 Ratio 07/04/2015 Comp Metabolic Mnb294 CALCIUM 9.2 mg/dL 07/04/2015 Comp Metabolic Fht368 ALK PHOS 70 U/L 07/04/2015 Comp Metabolic Szj849 AST(SGOT) 23 U/L 07/04/2015 Comp Metabolic Uzz903 ALT(SGPT) 29 U/L 07/04/2015 Comp Metabolic Kcg498 BILI T 0.3 mg/dL 07/04/2015 Comp Metabolic Asw299 ALBUMIN 4.0 g/dL 07/04/2015 Comp Metabolic Tok751 TPRO 6.1 g/dL 07/04/2015 Comp Metabolic Hwb950 GLOB 2.1 g/dL 07/04/2015 Comp Metabolic Jif421 A/G Ratio 1.9 Ratio 07/04/2015 Comp Metabolic Oqh082 Osmo 276 mOsmo 07/04/2015 Review of Systems System Result Effective Dates Constitutional No recent illness 2018 Constitutional No anorexia 05/19/2018 Constitutional No night sweats 2018 Constitutional No chills 05/19/2018 Constitutional No diaphoresis 05/19/2018 Constitutional No fatigue 05/19/2018 Constitutional No fever 05/19/2018 Constitutional No insomnia 05/19/2018 Constitutional No malaise 05/19/2018 Constitutional No weight loss 05/19/2018 Constitutional No weight gain 05/19/2018 Eyes No eye discharge 05/19/2018 Eyes No eye erythema 05/19/2018 Ears/Nose/Throat/Neck No dizziness 2018 Ears/Nose/Throat/Neck No headache 2018 Cardiovascular No chest pain/pressure 03/2019 Respiratory No cough 05/19/2018 Gastrointestinal No abdominal pain 2018 Gastrointestinal No constipation 2018 Gastrointestinal No diarrhea 05/19/2018 Gastrointestinal dyspepsia 05/19/2018 Gastrointestinal gas and bloating 2018 Gastrointestinal gastroesophageal reflux 05/19/2018 Genitourinary/Nephrology No dysuria 05/19 Musculoskeletal back pain 05/19/2018 Dermatologic No rash 05/19/2018 Neurologic No alteration of consciousness 05/19/2018 Psychiatric No depression 05/19/2018 Endocrine No dry or coarse skin 2018 Constitutional recent illness 12/28/2017 Constitutional No chills 12/28/2017 Constitutional No diaphoresis 12/28/2017 Constitutional No fever 12/28/2017 Eyes No eye erythema 12/28/2017 Ears/Nose/Throat/Neck No nasal discharge 12/28/2017 Cardiovascular No chest pain/pressure Cardiovascular No dyspnea 12/28/2017 Respiratory No cough 12/28/2017 Respiratory No chest congestion 2017 Gastrointestinal No abdominal pain 2017 Genitourinary/Nephrology dysuria 2017 Genitourinary/Nephrology urinary frequency 12/28/2017 Genitourinary/Nephrology urinary urgency 12/28/2017 Genitourinary/Nephrology No urinary incontinence 12/28/2017 Dermatologic No rash 12/28/2017 Neurologic No alteration of consciousness 12/28/2017 Neurologic No mental status change 2017 Constitutional No recent illness 2016 Constitutional No anorexia 07/22/2016 Constitutional No night sweats 2016 Constitutional No chills 07/22/2016 Constitutional No diaphoresis 07/22/2016 Constitutional No fatigue 07/22/2016 Constitutional No fever 07/22/2016 Constitutional No insomnia 07/22/2016 Constitutional No malaise 07/22/2016 Constitutional No weight loss 07/22/2016 Constitutional No weight gain 07/22/2016 Eyes No eye discharge 07/22/2016 Eyes No eye erythema 07/22/2016 Ears/Nose/Throat/Neck headache 2016 Dermatologic No rash 07/22/2016 Cardiovascular No chest pain/pressure Cardiovascular No dyspnea 07/22/2016 Cardiovascular No edema 07/22/2016 Ears/Nose/Throat/Neck No dizziness 2016 Ears/Nose/Throat/Neck No hoarseness 07/22 Respiratory No productive sputum 2016 Respiratory No cough 07/22/2016 Gastrointestinal No abdominal pain 2016 Gastrointestinal gastroesophageal reflux 07/22/2016 Gastrointestinal No anorexia 07/22/2016 Gastrointestinal No diarrhea 07/22/2016 Gastrointestinal No constipation 2016 Genitourinary/Nephrology No dysuria 07/22 Musculoskeletal No joint complaint 2016 Neurologic No alteration of consciousness 07/22/2016 Psychiatric anxiety 07/22/2016 Endocrine No dry or coarse skin 2016 Cardiovascular chest pain/pressure 2015 Gastrointestinal dyspepsia 03/25/2016 Gastrointestinal gastroesophageal reflux 03/25/2016 Genitourinary/Nephrology No dysuria 03/25 Respiratory No cough 03/25/2016 Musculoskeletal back pain 03/25/2016 Constitutional No recent illness 2015 Constitutional No anorexia 03/25/2016 Constitutional No night sweats 2015 Constitutional No chills 03/25/2016 Constitutional diaphoresis 03/25/2016 Constitutional No fatigue 03/25/2016 Constitutional No fever 03/25/2016 Constitutional No insomnia 03/25/2016 Constitutional No malaise 03/25/2016 Constitutional No weight loss 03/25/2016 Constitutional No weight gain 03/25/2016 Eyes No eye erythema 03/25/2016 Eyes No eye discharge 03/25/2016 Ears/Nose/Throat/Neck No dizziness 2015 Ears/Nose/Throat/Neck No headache 2015 Dermatologic No rash 03/25/2016 Neurologic No alteration of consciousness 03/25/2016 Psychiatric No depression 03/25/2016 Endocrine No dry or coarse skin 2015 Gastrointestinal No abdominal pain 2015 Gastrointestinal No constipation 2015 Gastrointestinal No diarrhea 03/25/2016 Gastrointestinal gas and bloating 2015 Constitutional No recent illness 2015 Constitutional No fever 03/16/2016 Eyes No eye erythema 03/16/2016 Ears/Nose/Throat/Neck No nasal allergies 03/16/2016 Ears/Nose/Throat/Neck No nasal discharge 03/16/2016 Cardiovascular No chest pain/pressure 12/2015 Cardiovascular No dyspnea 03/16/2016 Respiratory No cough 03/16/2016 Respiratory No dyspnea 03/16/2016 Gastrointestinal abdominal pain 2015 Gastrointestinal No diarrhea 03/16/2016 Gastrointestinal No constipation 2015 Gastrointestinal No vomiting 03/16/2016 Gastrointestinal No nausea 03/16/2016 Genitourinary/Nephrology pelvic pain 12/2015 Musculoskeletal No back pain 03/16/2016 Dermatologic No rash 03/16/2016 Neurologic No alteration of consciousness 03/16/2016 Neurologic No mental status change 2015 Constitutional No chills 08/13/2015 Constitutional No diaphoresis 08/13/2015 Constitutional fatigue 08/13/2015 Constitutional No fever 08/13/2015 Constitutional No malaise 08/13/2015 Eyes No eye discharge 08/13/2015 Eyes No eye erythema 08/13/2015 Ears/Nose/Throat/Neck headache 2015 Dermatologic No rash 08/13/2015 Cardiovascular No chest pain/pressure 10/2015 Cardiovascular No edema 08/13/2015 Respiratory No cough 08/13/2015 Respiratory No chest congestion 2015 Gastrointestinal No abdominal pain 2015 Gastrointestinal No constipation 2015 Gastrointestinal No diarrhea 08/13/2015 Musculoskeletal joint complaint 2015 Neurologic No alteration of consciousness 08/13/2015 Dermatologic No rash 07/03/2015 Dermatologic mole change 07/03/2015 Constitutional No recent illness 2015 Constitutional No anorexia 07/03/2015 Constitutional No night sweats 2015 Constitutional No chills 07/03/2015 Constitutional No diaphoresis 07/03/2015 Constitutional No fatigue 07/03/2015 Constitutional No fever 07/03/2015 Constitutional No insomnia 07/03/2015 Constitutional No malaise 07/03/2015 Constitutional No weight loss 07/03/2015 Constitutional No weight gain 07/03/2015 Eyes No eye discharge 07/03/2015 Eyes No eye erythema 07/03/2015 Ears/Nose/Throat/Neck headache 2015 Constitutional No recent illness 2014 Constitutional No anorexia 09/27/2014 Constitutional No night sweats 2014 Constitutional No chills 09/27/2014 Constitutional No diaphoresis 09/27/2014 Constitutional fatigue 09/27/2014 Constitutional No fever 09/27/2014 Constitutional No malaise 09/27/2014 Constitutional No insomnia 09/27/2014 Constitutional No weight loss 09/27/2014 Constitutional No weight gain 09/27/2014 Eyes No eye discharge 09/27/2014 Eyes No eye erythema 09/27/2014 Ears/Nose/Throat/Neck No dizziness 2014 Ears/Nose/Throat/Neck No nasal discharge 09/27/2014 Ears/Nose/Throat/Neck nasal allergies Ears/Nose/Throat/Neck sinus congestion Cardiovascular No chest pain/pressure Cardiovascular No dyspnea 09/27/2014 Cardiovascular No edema 09/27/2014 Respiratory No productive sputum 2014 Respiratory No cough 09/27/2014 Respiratory cigarette smoking 09/27/2014 Gastrointestinal No abdominal pain 2014 Genitourinary/Nephrology No dysuria 09/27 Gastrointestinal No constipation 2014 Gastrointestinal diarrhea 09/27/2014 Musculoskeletal No joint complaint 2014 Dermatologic No rash 09/27/2014 Dermatologic No sores 09/27/2014 Neurologic No alteration of consciousness 09/27/2014 Psychiatric No anxiety 09/27/2014 Psychiatric No depression 09/27/2014 Endocrine No dry or coarse skin 2014 Physical Exam Exam Name System Name Item Name Status Result Effective Dates Notes Full Exam - General 1994 Constitutional general appearance Overall: well developed 05/19/2018 None Full Exam - General 1994 Constitutional general appearance Overall: in no acute distress 05/19/2018 None Full Exam - General 1994 Constitutional general appearance Overall: well nourished 05/19/2018 None Full Exam - General 1994 Eyes conjunctiva /eyelids Overall: conjunctiva clear 05/19/2018 None Full Exam - General 1994 Eyes conjunctiva /eyelids Overall: cornea clear 05/19/2018 None Full Exam - General 1994 Eyes conjunctiva /eyelids Overall: eyelids normal 05/19/2018 None Full Exam - General 1994 Eyes pupils and irises Overall: pupils equal, round, reactive to light and accomodation 05/19/2018 None Full Exam - General 1994 Ears/Nose/Throat otoscopic exam Overall: external auditory canals clear 05/19/2018 None Full Exam - General 1994 Ears/Nose/Throat otoscopic exam Overall: tympanic membranes clear 05/19/2018 None Full Exam - General 1994 Ears/Nose/Throat oral cavity/pharynx/larynx Overall: oral mucosa clear 05/19/2018 None Full Exam - General 1995 Ears/Nose/Throat oral cavity/pharynx/larynx Overall: oropharyngeal mucosa clear 05/19/2018 None Full Exam - General 1994 Ears/Nose/Throat oral cavity/pharynx/larynx Overall: no masses 05/19/2018 None Full Exam - General 1994 Respiratory auscultation Overall: breath sounds clear bilaterally 05/19/2018 None Full Exam - General 1994 Respiratory respiratory effort/rhythm Overall: no retractions 05/19/2018 None Full Exam - General 1994 Respiratory respiratory effort/rhythm Overall: normal rate 05/19/2018 None Full Exam - General 1994 Cardiovascular auscultation of heart Overall: regular rate 05/19/2018 None Full Exam - General 1994 Cardiovascular auscultation of heart Overall: normal heart sounds 05/19/2018 None Full Exam - General 1994 Cardiovascular auscultation of heart Overall: no murmurs 05/19/2018 None Full Exam - General 1994 Abdomen abdominal exam Overall: no tenderness 05/19/2018 None Full Exam - General 1994 Abdomen abdominal exam Overall: normal bowel sounds 05/19/2018 None Full Exam - General 1994 Lymphatic neck nodes Overall: anterior cervical chain benign 05/19/2018 None Full Exam - General 1994 Lymphatic neck nodes Overall: posterior cervical chain benign 05/19/2018 None Full Exam - General 1994 Musculoskeletal gait and station Overall: normal gait 05/19/2018 None Full Exam - General 1994 Musculoskeletal gait and station Overall: normal station 05/19/2018 None Full Exam - General 1994 Musculoskeletal head and neck Overall: head atraumatic 05/19/2018 None Full Exam - General 1994 Musculoskeletal head and neck Overall: cervical spine benign 05/19/2018 None Full Exam - General 1994 Integument inspection of skin Overall: no rash, lesions 05/19/2018 None Full Exam - General 1994 Neurologic deep tendon reflexes Overall: deep tendon reflexes intact 05/19/2018 None Full Exam - General 1994 Neurologic gait Overall: no ataxia, no unsteadiness 05/19/2018 None Full Exam - General 1994 Psychiatric orientation/consciousness Overall: oriented to person, place and time 05/19/2018 None Full Exam - General 1994 Constitutional general appearance Overall: well developed 12/28/2017 None Full Exam - General 1994 Constitutional general appearance Overall: in no acute distress 12/28/2017 None Full Exam - General 1994 Constitutional general appearance Overall: well nourished 12/28/2017 None Full Exam - General 1994 Eyes conjunctiva /eyelids Overall: conjunctiva clear 12/28/2017 None Full Exam - General 1994 Eyes conjunctiva /eyelids Overall: cornea clear 12/28/2017 None Full Exam - General 1994 Eyes conjunctiva /eyelids Overall: eyelids normal 12/28/2017 None Full Exam - General 1994 Ears/Nose/Throat oral cavity/pharynx/larynx Overall: oral mucosa clear 12/28/2017 None Full Exam - General 1994 Ears/Nose/Throat oral cavity/pharynx/larynx Overall: oropharyngeal mucosa clear 12/28/2017 None Full Exam - General 1994 Respiratory auscultation Overall: breath sounds clear bilaterally 12/28/2017 None Full Exam - General 1994 Respiratory respiratory effort/rhythm Overall: no retractions 12/28/2017 None Full Exam - General 1994 Respiratory respiratory effort/rhythm Overall: normal rate 12/28/2017 None Full Exam - General 1994 Cardiovascular auscultation of heart Overall: regular rate 12/28/2017 None Full Exam - General 1994 Cardiovascular auscultation of heart Overall: normal heart sounds 12/28/2017 None Full Exam - General 1994 Abdomen abdominal exam Overall: no tenderness 12/28/2017 None Full Exam - General 1994 Abdomen abdominal exam Overall: normal bowel sounds 12/28/2017 None Full Exam - General 1994 Lymphatic neck nodes Overall: anterior cervical chain benign 12/28/2017 None Full Exam - General 1994 Lymphatic neck nodes Overall: posterior cervical chain benign 12/28/2017 None Full Exam - General 1994 Musculoskeletal gait and station Overall: normal gait 12/28/2017 None Full Exam - General 1994 Musculoskeletal gait and station Overall: normal station 12/28/2017 None Full Exam - General 1994 Musculoskeletal head and neck Overall: head atraumatic 12/28/2017 None Full Exam - General 1994 Neurologic gait Overall: no ataxia, no unsteadiness 12/28/2017 None Full Exam - General 1994 Psychiatric orientation/consciousness Overall: oriented to person, place and time 12/28/2017 None Full Exam - General 1994 Ears/Nose/Throat lips/teeth/gingiva Overall: benign lips 12/28/2017 None Full Exam - General 1994 Neurologic cranial nerves Overall: crainial nerves 2 - 12 grossly intact 12/28/2017 None Full Exam - General 1994 Psychiatric mood and affect Overall: normal mood and affect 12/28/2017 None Full Exam - General 1994 Psychiatric appearance Overall: well-groomed, good eye contact 12/28/2017 None Full Exam - General 1994 Constitutional general appearance Overall: well developed 07/22/2016 None Full Exam - General 1994 Constitutional general appearance Overall: in no acute distress 07/22/2016 None Full Exam - General 1994 Constitutional general appearance Overall: well nourished 07/22/2016 None Full Exam - General 1994 Eyes conjunctiva /eyelids Overall: conjunctiva clear 07/22/2016 None Full Exam - General 1994 Eyes conjunctiva /eyelids Overall: cornea clear 07/22/2016 None Full Exam - General 1994 Eyes conjunctiva /eyelids Overall: eyelids normal 07/22/2016 None Full Exam - General 1994 Eyes pupils and irises Overall: pupils equal, round, reactive to light and accomodation 07/22/2016 None Full Exam - General 1994 Ears/Nose/Throat otoscopic exam Overall: external auditory canals clear 07/22/2016 None Full Exam - General 1994 Ears/Nose/Throat otoscopic exam Overall: tympanic membranes clear 07/22/2016 None Full Exam - General 1994 Ears/Nose/Throat oral cavity/pharynx/larynx Overall: oral mucosa clear 07/22/2016 None Full Exam - General 1994 Ears/Nose/Throat oral cavity/pharynx/larynx Overall: oropharyngeal mucosa clear 07/22/2016 None Full Exam - General 1994 Ears/Nose/Throat oral cavity/pharynx/larynx Overall: no masses 07/22/2016 None Full Exam - General 1994 Respiratory auscultation Overall: breath sounds clear bilaterally 07/22/2016 None Full Exam - General 1994 Respiratory respiratory effort/rhythm Overall: no retractions 07/22/2016 None Full Exam - General 1994 Respiratory respiratory effort/rhythm Overall: normal rate 07/22/2016 None Full Exam - General 1994 Cardiovascular auscultation of heart Overall: regular rate 07/22/2016 None Full Exam - General 1994 Cardiovascular auscultation of heart Overall: normal heart sounds 07/22/2016 None Full Exam - General 1994 Cardiovascular auscultation of heart Overall: no murmurs 07/22/2016 None Full Exam - General 1994 Abdomen abdominal exam Overall: no tenderness 07/22/2016 None Full Exam - General 1994 Abdomen abdominal exam Overall: normal bowel sounds 07/22/2016 None Full Exam - General 1994 Lymphatic neck nodes Overall: anterior cervical chain benign 07/22/2016 None Full Exam - General 1994 Lymphatic neck nodes Overall: posterior cervical chain benign 07/22/2016 None Full Exam - General 1994 Musculoskeletal gait and station Overall: normal gait 07/22/2016 None Full Exam - General 1994 Musculoskeletal gait and station Overall: normal station 07/22/2016 None Full Exam - General 1994 Musculoskeletal head and neck Overall: head atraumatic 07/22/2016 None Full Exam - General 1994 Musculoskeletal head and neck Overall: cervical spine benign 07/22/2016 None Full Exam - General 1994 Integument inspection of skin Overall: no rash, lesions 07/22/2016 None Full Exam - General 1994 Neurologic deep tendon reflexes Overall: deep tendon reflexes intact 07/22/2016 None Full Exam - General 1994 Neurologic gait Overall: no ataxia, no unsteadiness 07/22/2016 None Full Exam - General 1994 Psychiatric orientation/consciousness Overall: oriented to person, place and time 07/22/2016 None Full Exam - General 1994 Constitutional general appearance Overall: well developed 03/25/2016 None Full Exam - General 1994 Constitutional general appearance Overall: in no acute distress 03/25/2016 None Full Exam - General 1994 Constitutional general appearance Overall: well nourished 03/25/2016 None Full Exam - General 1994 Eyes conjunctiva /eyelids Overall: conjunctiva clear 03/25/2016 None Full Exam - General 1994 Eyes conjunctiva /eyelids Overall: cornea clear 03/25/2016 None Full Exam - General 1994 Eyes conjunctiva /eyelids Overall: eyelids normal 03/25/2016 None Full Exam - General 1994 Eyes pupils and irises Overall: pupils equal, round, reactive to light and accomodation 03/25/2016 None Full Exam - General 1994 Ears/Nose/Throat otoscopic exam Overall: external auditory canals clear 03/25/2016 None Full Exam - General 1994 Ears/Nose/Throat otoscopic exam Overall: tympanic membranes clear 03/25/2016 None Full Exam - General 1994 Ears/Nose/Throat oral cavity/pharynx/larynx Overall: oral mucosa clear 03/25/2016 None Full Exam - General 1994 Ears/Nose/Throat oral cavity/pharynx/larynx Overall: oropharyngeal mucosa clear 03/25/2016 None Full Exam - General 1994 Ears/Nose/Throat oral cavity/pharynx/larynx Overall: no masses 03/25/2016 None Full Exam - General 1994 Respiratory auscultation Overall: breath sounds clear bilaterally 03/25/2016 None Full Exam - General 1994 Respiratory respiratory effort/rhythm Overall: no retractions 03/25/2016 None Full Exam - General 1994 Respiratory respiratory effort/rhythm Overall: normal rate 03/25/2016 None Full Exam - General 1994 Cardiovascular auscultation of heart Overall: regular rate 03/25/2016 None Full Exam - General 1994 Cardiovascular auscultation of heart Overall: normal heart sounds 03/25/2016 None Full Exam - General 1994 Cardiovascular auscultation of heart Overall: no murmurs 03/25/2016 None Full Exam - General 1994 Abdomen abdominal exam Overall: no tenderness 03/25/2016 None Full Exam - General 1994 Abdomen abdominal exam Overall: normal bowel sounds 03/25/2016 None Full Exam - General 1994 Lymphatic neck nodes Overall: anterior cervical chain benign 03/25/2016 None Full Exam - General 1994 Lymphatic neck nodes Overall: posterior cervical chain benign 03/25/2016 None Full Exam - General 1994 Musculoskeletal gait and station Overall: normal gait 03/25/2016 None Full Exam - General 1994 Musculoskeletal gait and station Overall: normal station 03/25/2016 None Full Exam - General 1994 Musculoskeletal head and neck Overall: head atraumatic 03/25/2016 None Full Exam - General 1994 Musculoskeletal head and neck Overall: cervical spine benign 03/25/2016 None Full Exam - General 1994 Integument inspection of skin Overall: no rash, lesions 03/25/2016 None Full Exam - General 1994 Neurologic deep tendon reflexes Overall: deep tendon reflexes intact 03/25/2016 None Full Exam - General 1994 Neurologic gait Overall: no ataxia, no unsteadiness 03/25/2016 None Full Exam - General 1994 Psychiatric orientation/consciousness Overall: oriented to person, place and time 03/25/2016 None Full Exam - General 1994 Constitutional general appearance Overall: well developed 03/16/2016 None Full Exam - General 1994 Constitutional general appearance Overall: well nourished 03/16/2016 None Full Exam - General 1994 Constitutional general appearance Evidence of Distress: mild distress 03/16/2016 None Full Exam - General 1994 Eyes conjunctiva /eyelids Overall: conjunctiva clear 03/16/2016 None Full Exam - General 1994 Eyes pupils and irises Overall: pupils equal, round, reactive to light and accomodation 03/16/2016 None Full Exam - General 1994 Ears/Nose/Throat lips/teeth/gingiva Overall: benign lips 03/16/2016 None Full Exam - General 1994 Ears/Nose/Throat oral cavity/pharynx/larynx Overall: oral mucosa clear 03/16/2016 None Full Exam - General 1994 Respiratory respiratory effort/rhythm Overall: no retractions 03/16/2016 None Full Exam - General 1994 Respiratory respiratory effort/rhythm Overall: normal rate 03/16/2016 None Full Exam - General 1994 Respiratory auscultation Overall: breath sounds clear bilaterally 03/16/2016 None Full Exam - General 1994 Cardiovascular auscultation of heart Overall: regular rate 03/16/2016 None Full Exam - General 1994 Cardiovascular auscultation of heart Overall: normal heart sounds 03/16/2016 None Full Exam - General 1994 Cardiovascular extremities Overall: no clubbing 03/16/2016 None Full Exam - General 1994 Abdomen abdominal exam Suprapubic: tender to palpation 03/16/2016 None Full Exam - General 1994 Abdomen abdominal exam Suprapubic: dull pain 03/16/2016 None Full Exam - General 1994 Abdomen abdominal exam Suprapubic: no guarding 03/16/2016 None Full Exam - General 1994 Abdomen abdominal exam Suprapubic: no rebound tenderness 03/16/2016 None Full Exam - General 1994 Abdomen abdominal exam Suprapubic: no mass lesions 03/16/2016 None Full Exam - General 1994 Abdomen abdominal exam Suprapubic: soft 03/16/2016 None Full Exam - General 1994 Genitourinary labia and vagina Overall: normal hair distribution 03/16/2016 None Full Exam - General 1994 Genitourinary labia and vagina Overall: no lesions 03/16/2016 None Full Exam - General 1994 Genitourinary urethra Overall: no masses 03/16/2016 None Full Exam - General 1994 Genitourinary bladder Overall: no tenderness 03/16/2016 None Full Exam - General 1994 Genitourinary uterus Overall: surgically absent 03/16/2016 None Full Exam - General 1994 Musculoskeletal head and neck Overall: head atraumatic 03/16/2016 None Full Exam - General 1994 Neurologic cranial nerves Overall: crainial nerves 2 - 12 grossly intact 03/16/2016 None Full Exam - General 1994 Psychiatric orientation/consciousness Overall: oriented to person, place and time 03/16/2016 None Full Exam - General 1994 Psychiatric mood and affect Overall: normal mood and affect 03/16/2016 None Full Exam - General 1994 Psychiatric appearance Overall: well-groomed, good eye contact 03/16/2016 None Full Exam - General 1994 Constitutional general appearance Overall: well developed 08/13/2015 None Full Exam - General 1994 Constitutional general appearance Overall: in no acute distress 08/13/2015 None Full Exam - General 1994 Constitutional general appearance Overall: well nourished 08/13/2015 None Full Exam - General 1994 Respiratory auscultation Overall: breath sounds clear bilaterally 08/13/2015 None Full Exam - General 1994 Respiratory respiratory effort/rhythm Overall: no retractions 08/13/2015 None Full Exam - General 1994 Respiratory respiratory effort/rhythm Overall: normal rate 08/13/2015 None Full Exam - General 1994 Cardiovascular auscultation of heart Overall: regular rate 08/13/2015 None Full Exam - General 1994 Cardiovascular auscultation of heart Overall: normal heart sounds 08/13/2015 None Full Exam - General 1994 Psychiatric orientation/consciousness Overall: oriented to person, place and time 08/13/2015 None Full Exam - General 1994 Integument inspection of skin Location: left hand 08/13/2015 pt states that her index finger has been intermittently being white for a few seconds and being numb, then returning to normal. Full Exam - General 1994 Constitutional general appearance Overall: well developed 07/03/2015 None Full Exam - General 1994 Constitutional general appearance Overall: in no acute distress 07/03/2015 None Full Exam - General 1994 Constitutional general appearance Overall: well nourished 07/03/2015 None Full Exam - General 1994 Respiratory auscultation Overall: breath sounds clear bilaterally 07/03/2015 None Full Exam - General 1994 Respiratory respiratory effort/rhythm Overall: no retractions 07/03/2015 None Full Exam - General 1994 Respiratory respiratory effort/rhythm Overall: normal rate 07/03/2015 None Full Exam - General 1994 Cardiovascular auscultation of heart Overall: regular rate 07/03/2015 None Full Exam - General 1994 Cardiovascular auscultation of heart Overall: normal heart sounds 07/03/2015 None Full Exam - General 1994 Cardiovascular auscultation of heart Overall: no murmurs 07/03/2015 None Full Exam - General 1994 Psychiatric orientation/consciousness Overall: oriented to person, place and time 07/03/2015 None Full Exam - General 1994 Integument inspection of skin Location: face 07/03/2015 small skin tag right upper lip Full Exam - General 1994 Psychiatric orientation/consciousness Overall: oriented to person, place and time 09/27/2014 None Full Exam - General 1994 Neurologic deep tendon reflexes Overall: deep tendon reflexes intact 09/27/2014 None Full Exam - General 1994 Neurologic gait Overall: no ataxia, no unsteadiness 09/27/2014 None Full Exam - General 1994 Integument inspection of skin Overall: no rash, lesions 09/27/2014 None Full Exam - General 1994 Musculoskeletal gait and station Overall: normal station 09/27/2014 None Full Exam - General 1994 Musculoskeletal gait and station Overall: normal gait 09/27/2014 None Full Exam - General 1994 Musculoskeletal head and neck Overall: cervical spine benign 09/27/2014 None Full Exam - General 1994 Musculoskeletal head and neck Overall: head atraumatic 09/27/2014 None Full Exam - General 1994 Abdomen abdominal exam Overall: no tenderness 09/27/2014 None Full Exam - General 1994 Abdomen abdominal exam Overall: normal bowel sounds 09/27/2014 None Full Exam - General 1994 Lymphatic neck nodes Overall: anterior cervical chain benign 09/27/2014 None Full Exam - General 1994 Lymphatic neck nodes Overall: posterior cervical chain benign 09/27/2014 None Full Exam - General 1994 Cardiovascular auscultation of heart Overall: regular rate 09/27/2014 None Full Exam - General 1994 Cardiovascular auscultation of heart Overall: normal heart sounds 09/27/2014 None Full Exam - General 1994 Cardiovascular auscultation of heart Overall: no murmurs 09/27/2014 None Full Exam - General 1994 Respiratory auscultation Overall: breath sounds clear bilaterally 09/27/2014 None Full Exam - General 1994 Respiratory respiratory effort/rhythm Overall: normal rate 09/27/2014 None Full Exam - General 1994 Respiratory respiratory effort/rhythm Overall: no retractions 09/27/2014 None Full Exam - General 1994 Ears/Nose/Throat otoscopic exam Overall: tympanic membranes clear 09/27/2014 None Full Exam - General 1994 Ears/Nose/Throat otoscopic exam Overall: external auditory canals clear 09/27/2014 None Full Exam - General 1994 Ears/Nose/Throat oral cavity/pharynx/larynx Overall: oropharyngeal mucosa clear 09/27/2014 None Full Exam - General 1994 Ears/Nose/Throat oral cavity/pharynx/larynx Overall: no masses 09/27/2014 None Full Exam - General 1994 Ears/Nose/Throat oral cavity/pharynx/larynx Overall: oral mucosa clear 09/27/2014 None Full Exam - General 1994 Constitutional general appearance Overall: well nourished 09/27/2014 None Full Exam - General 1994 Constitutional general appearance Overall: well developed 09/27/2014 None Full Exam - General 1994 Constitutional general appearance Overall: in no acute distress 09/27/2014 None Full Exam - General 1994 Eyes conjunctiva /eyelids Overall: conjunctiva clear 09/27/2014 None Full Exam - General 1994 Eyes conjunctiva /eyelids Overall: eyelids normal 09/27/2014 None Full Exam - General 1994 Eyes conjunctiva /eyelids Overall: cornea clear 09/27/2014 None Full Exam - General 1994 Eyes pupils and irises Overall: pupils equal, round, reactive to light and accomodation 09/27/2014 None Procedures No Procedures data Vital Signs Date Vital 05/19/2018 Blood Pressure 1: 128/80 Code : 8480-6 BMI: 24.1 Code : 89040-1 Heart Rate 1 : 80 bpm Height: 5'2" SpO2: 96% Weight: 132 lbs 12/28/2017 Blood Pressure 1: 118/70 Code : 8480-6 BMI: 24.5 Code : 38587-9 Heart Rate 1 : 80 bpm Height: 5'2" SpO2: 98% Weight: 134 lbs 07/22/2016 Blood Pressure 1: 136/74 Code : 8480-6 BMI: 24.5 Code : 52079-4 Heart Rate 1 : 78 bpm Height: 5'2" SpO2: 98% Weight: 134 lbs 03/25/2016 Blood Pressure 1: 128/86 Code : 8480-6 BMI: 24.5 Code : 28638-4 Heart Rate 1 : 89 bpm Height: 5'2" SpO2: 96% Weight: 134 lbs 03/16/2016 Blood Pressure 1: 152/92 Code : 8480-6 BMI: 24.5 Code : 13460-5 Heart Rate 1 : 85 bpm Height: 5'2" SpO2: 99% Weight: 134 lbs 09/11/2015 Blood Pressure 1: 138/80 Code : 8480-6 08/13/2015 Blood Pressure 1: 160/90 Code : 8480-6 Blood Pressure 1: 164/98 Code: 8480-6 BMI: 24.9 Code: 24328-3 Heart Rate 1: 112 bpm Height: 5'2" SpO2: 97% Weight: 136 lbs 07/03/2015 Blood Pressure 1: 120/70 Code : 8480-6 BMI: 25.1 Code : 71939-9 Heart Rate 1 : 87 bpm Height: 5'2" SpO2: 96% Weight: 137 lbs 09/27/2014 Blood Pressure 1: 130/72 Code : 8480-6 BMI: 25.4 Code : 62091-1 Heart Rate 1 : 92 bpm Height: 5'2" Weight: 139 lbs Functional Status No Functional Status data History of Present Illness Symptom Name Status Result Effective Date Notes Location in the epigastric area 05/19/2018 None Radiating the umbilicus 05/19/2018 None Quality intermittent 05/19/2018 None Onset of Symptom _ months ago 05/19/2018 None Pertinent Findings Denies bloating 05/19/2018 None Pertinent Findings Denies fever 05/19/2018 None Limitation on Activities does not limit activities 05/19/2018 None Frequency of Episodes unchanged 05/19/2018 None Triggers no known associated factors 05/19/2018 None urinary frequency Quality constant 12/28/2017 None urinary frequency Onset and Resolution sudden in onset 12/28/2017 None urinary frequency Onset of Symptom 2 days ago 12/28/2017 None pelvic pain Quality constant 12/28/2017 None pelvic pain Onset and Resolution sudden in onset 12/28/2017 None pelvic pain Onset of Symptom 2 days ago 12/28/2017 None anxiety Quality chronic 07/22/2016 None anxiety Onset and Resolution ongoing 07/22/2016 None anxiety Onset of Symptom during adulthood 07/22/2016 None anxiety Pertinent Findings restlessness 07/22/2016 None anxiety Pertinent Findings tachycardia 07/22/2016 None anxiety Pertinent Findings tachypnea 07/22/2016 None anxiety Limitation on Activities does not limit activities 07/22/2016 None anxiety Frequency of Episodes increasing 07/22/2016 None anxiety Significant Family History anxiety disorder 07/22/2016 None anxiety Triggers stress 07/22/2016 None anxiety Alleviating Factors medication 07/22/2016 XANAX HELPED IN THEPAST chest pain/pressure Location in the substernal area 03/25/2016 None chest pain/pressure Radiating the right arm 03/25/2016 None chest pain/pressure Radiating the left arm 03/25/2016 None chest pain/pressure Radiating the neck 03/25/2016 None chest pain/pressure Quality burning 03/25/2016 None chest pain/pressure Onset of Symptom 3 days ago 03/25/2016 None chest pain/pressure Onset and Resolution sudden in onset 03/25/2016 None chest pain/pressure Quality intermittent 03/25/2016 None chest pain/pressure Frequency of Episodes daily 03/25/2016 None chest pain/pressure Length of Episodes 2- 3 hours 03/25/2016 None chest pain/pressure Pertinent Findings back pain 03/25/2016 None chest pain/pressure Pertinent Findings Denies dyspnea 03/25/2016 None chest pain/pressure Pertinent Findings palpitations 03/25/2016 None chest pain/pressure Pertinent Findings Denies tachycardia 03/25/2016 None pelvic pain Location diffusely 03/16/2016 None pelvic pain Quality constant 03/16/2016 None pelvic pain Quality cramping 03/16/2016 None pelvic pain Quality heaviness 03/16/2016 None pelvic pain Onset and Resolution sudden in onset 03/16/2016 None pelvic pain Onset of Symptom 3 days ago 03/16/2016 None pelvic pain Frequency of Episodes daily 03/16/2016 None finger and hand pain Limitation on Activities moderately limits activities 08/13/2015 None finger and hand pain Pertinent Findings tingling 08/13/2015 None finger and hand pain Pertinent Findings numbness 08/13/2015 None skin lesion Quality non-tender 07/03/2015 flesh colored skin lesion Onset of Symptom _ months ago 07/03/2015 None skin lesion Pertinent Findings Denies facial pain 07/03/2015 None skin lesion Onset and Resolution ongoing 07/03/2015 None headache Quality chronic 09/27/2014 None headache Onset and Resolution resolved 09/27/2014 None headache Onset of Symptom during adulthood 09/27/2014 None headache Limitation on Activities does not limit activities 09/27/2014 None headache Frequency of Episodes decreasing 09/27/2014 None headache Significant Medical Conditions migraines 09/27/2014 None headache Triggers activity 09/27/2014 None headache Alleviating Factors medication 09/27/2014 imtrex well woman exam (40-65 years) Control none 09/27/2014 hysterectomy well woman exam (40-65 years) Pap Smear normal results 09/27/2014 Dr Paredes did last one at least 5 years well woman exam (40-65 years) Health Guidance baseline mammogram 09/27/2014 gets yearly mammogram well woman exam (40-65 years) Cardiovascular Risk Factors family history of cardiovascular disease None well woman exam (40-65 years) Obstetrical History 2 total pregnancies 09/27/2014 None well woman exam (40-65 years) Obstetrical History 2 full term 09/27/2014 None well woman exam (40-65 years) Immunizations influenza vaccine (annually over 50 y.o.) 09/27/2014 None well woman exam (40-65 years) Sexual Activity is monogamous 09/27/2014 None Advance Directives No Advance Directive data Encounters Encounter Performer Location Codes Date ([id number]) [id number] EST. PATIENT, LEVEL III Diagnosis: Gastro-esophageal reflux disease with esophagitis[ICD10: K21.0] Vale Costello MD, [facility] CPT-4: 43899 05/19/2018 72110 EST. PATIENT, LEVEL III Diagnosis: Dysuria[ICD10: R30.0] Diagnosis: Essential (primary) hypertension[ICD10: I10] Marisa Costello MD, [facility] CPT-4: 53381 12/28/2017 ([id number]) 60854 EST. PATIENT, LEVEL III Diagnosis: Essential (primary) hypertension[ICD10: I10] Diagnosis: Generalized anxiety disorder[ICD10: F41.1] Vale Costello MD, [facility] CPT-4: 17954 07/22/2016 ([id number]) 61229 EST. PATIENT, LEVEL IV Diagnosis: Gastro-esophageal reflux disease with esophagitis[ICD10: K21.0] Diagnosis: Essential (primary) hypertension[ICD10: I10] Diagnosis: Low back pain[ICD10: M54.5] Vale Costello MD, [facility] CPT-4: 74316 03/25/2016 17223 EST. PATIENT, LEVEL IV Diagnosis: Pelvic and perineal pain[ICD10: R10.2] Marisa Costello MD, [facility] CPT-4: 81407 03/16/2016 ([id number]) Miscellaneous no charge Diagnosis: Essential (primary) hypertension[ICD10: I10] Marisa Costello MD, [facility] CPT-4: 50974 09/11/2015 80070 EST. PATIENT, LEVEL III Diagnosis: Pain in left finger(s)[ICD10: M79.645] Diagnosis: Paresthesia of skin[ICD10: R20.2] Diagnosis: Essential (primary) hypertension[ICD10: I10] Marisa Costello MD, [facility] CPT-4: 55872 08/13/2015 ([id number]) 63211 EST. PATIENT, LEVEL III Diagnosis: Migraine, unspecified, not intractable, without status migrainosus[ ICD10: G43.909] Diagnosis: Other hypertrophic disorders of the skin[ICD10: L91.8] [facility] CPT-4: 72855 07/03/2015 ([id number]) PREV VISIT NEW AGE 40-64 Diagnosis: Well adult exam[ICD9: V70.0] Vale Costello MD, [facility] CPT-4: 82073 09/27/2014 Plan of Care Planned Activity Notes Codes Status Date Referral: Boo Levy [facility]:+[phone] [place], [place] [id number] Referral Completed 05/31/2018 Visit Plan: Esophageal Reflux - the patient has been counseled against excessive intake of caffeine, spicy foods, peppermint, and cinnamon - all of which can exacerbate esophageal reflux. The patient is to take medications as prescribed and call the office if the symptoms are not improving. 05/19/2018 Appointment: Vale Youngblood WPtel: [address] [place], [place] [phone] [place] [address] (30 min) Complex 05/19/2018 Patient Education: Patient Medication Summary Completed 05/19/2018 Care Plan: Referral Order SNOMED-CT : [id number] Pending 05/19/2018 Visit Plan: UTI - pt with positive urinalysis - culture sent if appropriate. Antibiotic electronically prescribed to pt's pharmacy of choice. Pt to call if symptoms do not improve. Hypertension - well controlled - continue with current medications, continue with no added salt diet. Pt has been encouraged to exercise daily. The pt has been advised to call the office if there are any acute concerns about change in blood pressure readings at home. 12/28/2017 Appointment: Marisa Wilcox WPtel: [facility]5 [facility] (15 min) Moderate 12/28/2017 Patient Education: Patient Medication Summary Completed 12/28/2017 Visit Plan: Hypertension - well controlled - continue with current medications, continue with no added salt diet. Pt has been encouraged to exercise daily. The pt has been advised to call the office if there are any acute concerns about change in blood pressure readings at home. Anxiety-patient prescribed low dose xanax to use as needed only-recommend daily SSRI if symptoms become more frequent/uncontrolled-instructed patient to call for worsening/uncontrolled symptoms or other concerns--patient verbalized understanding of plan. 07/22/2016 Appointment: Vale Youngblood WPtel: [phone] [phone] (30 min) Complex 07/22/2016 Patient Education: Patient Medication Summary Completed 07/22/2016 Patient Education: Smoking and Tobacco Addiction Completed 07/22/2016 Visit Plan: Esophageal Reflux - the patient has been counseled against excessive intake of caffeine, spicy foods, peppermint, and cinnamon - all of which can exacerbate esophageal reflux. The patient is to take medications as prescribed and call the office if the symptoms are not improving. DUE TO RECENT USE OF ORAL STEROIDS-STOP NIGHT TIME DOSE OF DEXAMETHASONE INSTRUCTED EKG NEGATIVE ADD CARAFATE AC&HS CONTINUE NEXIUM LOW SPICE DIET Hypertension - well controlled - continue with current medications, continue with no added salt diet. Pt has been encouraged to exercise daily. The pt has been advised to call the office if there are any acute concerns about change in blood pressure readings at home. Low back pain-follow up with Dr Mccrary 03/25/2016 Appointment: Vale Youngblood WPtel: [phone] [phone] (15 min) Moderate 03/25/2016 Patient Education: Patient Medication Summary Completed 03/25/2016 Patient Education: Smoking and Tobacco Addiction Completed 03/25/2016 Visit Plan: Pelvic pain - pt states that it "feels like everything is going to fall out". She states that it hurts to sit. Pt denies back pain, no pain on palpation. Pelvic exam normal - will refer to Dr. Pickering. Pt is to notify clinic if symptoms do not improve, or with any questions or concerns. 03/16/2016 Appointment: Ford Vale [facility] [phone] [place] (15 min) Moderate 03/16/2016 Patient Education: Patient Medication Summary Completed 03/16/2016 Patient Education: Smoking and Tobacco Addiction Completed 03/16/2016 Appointment: Nurse Visit 09/11/2015 Patient Education: Patient Medication Summary Completed 09/11/2015 Patient Education: Smoking and Tobacco Addiction Completed 09/11/2015 Care Plan: VASCULAR STUDY Pending 09/08/2015 Visit Plan: Hypertension - uncontrolled - the patient's medications have been modified as documented in the visit note. The patient has been counseled to cut back on salt in diet for a no added salt diet, low fat diet, start an exercise program with low weight bearing exercises and higher aerobic activity for heart health. The patient is to check blood pressure readings as an outpatient and either fax, call, or email the readings to the office next week for practitioner to review. The pt is to call for acute concerns. Finger paresthesia - Will order US, will send RX pending result of US> 08/13/2015 Appointment: (15 min) Moderate 08/13/2015 Patient Education: Patient Medication Summary Completed 08/13/2015 Patient Education: Smoking and Tobacco Addiction Completed 08/13/2015 Patient Education: Hypertension Completed 08/13/2015 Visit Plan: Irritated skin tag right cheek-cryotherapy today in the office Migraines-refill imitrex for prn use-check labs today 07/03/2015 Visit Plan: Irritated skin tag right cheek-cryotherapy today in the office Migraines-refill imitrex for prn use-check labs today 07/03/2015 Patient Education: Patient Medication Summary Completed 07/03/2015 Visit Plan: Well Adult - pt was counseled about diet, exercise, and encouraged to follow a heart healthy diet and increase activity level. The patient was instructed to RTC yearly for well adult exams and PRN for acute illnesses. The pt was also instructed to have yearly labs for check of cholesterol, thyroid, chem panel, CBC, and renal functioning. Tobacco abuse - chronic condition for this patient. Patient has been counseled about need to stop smoking due to the negative health affects. Pt has vocalized understanding and states that they will consider smoking cessation, but the pt is not yet ready to use medication to assist cessation. Migraines-RX for imitrex for PRN use 09/27/2014 Patient Education: Patient Medication Summary Completed 09/27/2014 Care Plan: COMPLETE CBC AUTOMATED LOINC : 31407-3 Ordered 09/27/2014 Referral: Boo Levy HPtel:[phone] [id number] [place] Referral Appointment Requested Instructions Comment PROTONIX DAILY CONTINUE CARAFATE APPOINTMENT WITH DR LEVY . Esophageal Reflux - the patient has been counseled against excessive intake of caffeine, spicy foods, peppermint, and cinnamon - all of which can exacerbate esophageal reflux. The patient is to take medications as prescribed and call the office if the symptoms are not improving. . Well Adult - pt was counseled about diet, exercise, and encouraged to follow a heart healthy diet and increase activity level. The patient was instructed to RTC yearly for well adult exams and PRN for acute illnesses. The pt was also instructed to have yearly labs for check of cholesterol, thyroid, chem panel, CBC, and renal functioning. Tobacco abuse - chronic condition for this patient. Patient has been counseled about need to stop smoking due to the negative health affects. Pt has vocalized understanding and states that they will consider smoking cessation, but the pt is not yet ready to use medication to assist cessation. Migraines-RX for imitrex for PRN use . Irritated skin tag right cheek-cryotherapy today in the office Migraines-refill imitrex for prn use-check labs today . Irritated skin tag right cheek-cryotherapy today in the office Migraines-refill imitrex for prn use-check labs today . UTI - pt with positive urinalysis - culture sent if appropriate. Antibiotic electronically prescribed to pt's pharmacy of choice. Pt to call if symptoms do not improve. Hypertension - well controlled - continue with current medications, continue with no added salt diet. Pt has been encouraged to exercise daily. The pt has been advised to call the office if there are any acute concerns about change in blood pressure readings at home. . Pelvic pain - pt states that it "feels like everything is going to fall out". She states that it hurts to sit. Pt denies back pain, no pain on palpation. Pelvic exam normal - will refer to Dr. Pickering. Pt is to notify clinic if symptoms do not improve, or with any questions or concerns. . Esophageal Reflux - the patient has been counseled against excessive intake of caffeine, spicy foods, peppermint, and cinnamon - all of which can exacerbate esophageal reflux. The patient is to take medications as prescribed and call the office if the symptoms are not improving. DUE TO RECENT USE OF ORAL STEROIDS-STOP NIGHT TIME DOSE OF DEXAMETHASONE INSTRUCTED EKG NEGATIVE ADD CARAFATE AC&HS CONTINUE NEXIUM LOW SPICE DIET Hypertension - well controlled - continue with current medications, continue with no added salt diet. Pt has been encouraged to exercise daily. The pt has been advised to call the office if there are any acute concerns about change in blood pressure readings at home. Low back pain-follow up with Dr Mccrary . Hypertension - uncontrolled - the patient's medications have been modified as documented in the visit note. The patient has been counseled to cut back on salt in diet for a no added salt diet, low fat diet, start an exercise program with low weight bearing exercises and higher aerobic activity for heart health. The patient is to check blood pressure readings as an outpatient and either fax , call, or email the readings to the office next week for practitioner to review. The pt is to call for acute concerns. Finger paresthesia - Will order US, will send RX pending result of US> VITAMIN B12 1000MCG DAILY -LIQIUD IS BETTER ABSORBED BUT YOU CAN ALSO GET THE DISSOLVABLE TABLETS CALCIUM WITH VITAMIN D . Hypertension - well controlled - continue with current medications, continue with no added salt diet. Pt has been encouraged to exercise daily. The pt has been advised to call the office if there are any acute concerns about change in blood pressure readings at home. Anxiety-patient prescribed low dose xanax to use as needed only-recommend daily SSRI if symptoms become more frequent/uncontrolled-instructed patient to call for worsening/uncontrolled symptoms or other concerns--patient verbalized understanding of plan.
--- OUTSIDE RECORDS SUMMARY | 2018-07-09 09:07 | XMS REPORT | CCD ---
Author Author Vale Youngblood Organization [facility] Address [address] [place] [address] Phone Care Team Providers Care Clinical Manager Home Care Name Role Phone PP Unavailable CCM Unavailable Summary Purpose Interface Exchange Insurance Providers Payer name Policy type / Coverage type Covered republican ID Effective Begin Date Effective End Date [place] [facility] [id number] Unknown Family history Father Diagnosis Age At [...] employed [employer] 09/27/[address]: 75959811 Currently smokes tobacco 09/27/[address]: 85547581 Currently smokes tobacco 09/27/2014 Number of cigarettes/day Unknown 10 ( Half a pack) 09/27/2014 Number of cigarettes/day Unknown 10 ( Half a pack) 09/27/[address]: 433304 Currently drinks alcohol 09/27/[address]: 483765 Currently drinks alcohol 09/27/2014 Frequency of drinks SNOMED CT: 431701890 1-4 drinks per week 09/27/2014 Frequency of drinks SNOMED CT: 155676617 1-4 drinks per week 09/27/2014 Allergies, Adverse [...] 03/24/2016 Unknown Pelvic and perineal pain ICD-9: [id number] ICD-10: R10.2 Active 03/15/2016 Unknown Pain in [...] 03/24/2016 Active Pelvic and perineal pain ICD-9: FWP9140 ICD-10: R10.2 03/15/2016 Active Pain in left [...] Start Date Stop Date Status Fill Instructions metoprolol succinate ER 50 mg tablet,extended release 24 hr RxNorm: 217379 1 Tablet(s) PO daily 12/28/2017 04/26/2018 Inactive Imitrex 50 mg tablet RxNorm: 623233 1 Tablet(s) PO PRN 2017 No Stop Date Active [SAVINGS FOR NON-COVERED DRUGS -- BIN:[id number], PCN: [id number], Group: XXXXX, ID # [id number], Questions: . THIS IS NOT INSURANCE.] Protonix 40 mg tablet,delayed release RxNorm: 756253 1 Tablet(s) PO daily 12/28/2017 01/26/2018 Inactive Bactrim DS 800 mg-160 mg tablet RxNorm: 143104 1 Tablet(s) PO BID 12/28/2017 01/06/2018 Inactive Carafate 1 gram tablet RxNorm: 344367 1 TABLET(S) PO AC & HS 12/15/2017 Inactive dissolve in water and drink as slurry Carafate 1 gram tablet RxNorm: 153727 1 TABLET(S) PO AC & HS 10/26/2016 Inactive dissolve in water and drink as slurry Xanax 0.25 mg tablet RxNorm: 174643 1 Tablet(s) PO QDAY PRN No Stop Date Active Carafate 1 gram tablet RxNorm: 812854 1 Tablet(s) PO AC & HS 08/20/2016 Inactive dissolve in water and drink as slurry Carafate 1 gram tablet RxNorm: 929075 1 Tablet(s) PO AC & HS 07/21/2016 Inactive dissolve in water and drink as slurry Protonix 40 mg tablet,delayed release RxNorm: 594970 1 Tablet(s) PO BID 07/22/2016 08/04/2016 Inactive Protonix 40 mg tablet,delayed release RxNorm: 867170 1 Tablet(s) PO BID 04/02/2016 04/01/2016 Inactive Protonix 40 mg tablet,delayed release RxNorm: 290793 1 Tablet(s) PO BID 04/02/2016 04/15/2016 Inactive Carafate 1 gram tablet RxNorm: 086728 1 Tablet(s) PO AC & HS 04/03/2016 Inactive dissolve in water and drink as slurry Nexium 40 mg capsule,delayed release RxNorm: 646302 1 Capsule(s) PO daily 03/24/2016 07/21/2016 Inactive if nexium is failed by insurance we will order prilosec 40mg daily #30 Nexium 40 mg capsule,delayed release RxNorm: 213204 1 Capsule(s) PO daily 03/24/2016 03/23/2016 Inactive if nexium is failed by insurance we will order prilosec 40mg daily #30 Norvasc 5 mg tablet RxNorm: 833339 1 Tablet(s) PO daily 201509/12/2015 Inactive Norvasc 5 mg tablet RxNorm: 019361 1 Tablet(s) PO daily 201508/13/2015 Inactive Imitrex 50 mg tablet RxNorm: 205259 1 Tablet(s) PO PRN 201512/27/2017 Inactive [SAVINGS FOR NON-COVERED DRUGS -- BIN:[id number], PCN: [id number], Group: XXXXX, ID # [id number], Questions: . THIS IS NOT INSURANCE.] Imitrex 50 mg tablet RxNorm: 692866 1 Tablet(s) PO PRN 201407/02/2015 Inactive [SAVINGS FOR NON-COVERED DRUGS -- BIN:[id number], PCN: ASPROD1, Group: XXXXX, ID # [id number], Questions: . THIS IS NOT INSURANCE.] aspirin 81 mg tablet RxNorm: 279654 1 Tablet(s) PO daily No Start Date Active metoprolol succinate ER 50 mg tablet,extended release 24 hr RxNorm: 100400 1 Tablet(s) PO daily No Start Date 2017 Inactive Medication Administered No Medication Administered data Immunizations Vaccine Codes Date Status Influenza CVX: 141 02/16/2018 completed Influenza CVX: 141 02/16/2017 completed Influenza CVX: 141 03/02/2016 completed Influenza CVX: 141 02/21/2015 completed Influenza CVX: 141 03/09/2014 completed Assessments Condition Codes Effective Dates Gastro-esophageal reflux disease with esophagitis ICD-10: K21.0 ICD-9: 530.11 05/19/2018 Essential (primary) hypertension ICD-10: I10 ICD-9: 401.9 12/28/2017 Dysuria ICD-10: R30.0 ICD-9: 788.1 12/28/2017 Generalized anxiety disorder ICD-10: F41.1 ICD-9: 300.02 07/22/2016 Low back pain ICD-10: M54.5 ICD-9: 724.2 03/25/2016 Pelvic and perineal pain ICD-10: R10.2 ICD-9: VPM1009 03/16/2016 Pain in left finger(s) ICD-10: M79.645 ICD-9: 729.5 08/13/2015 Paresthesia of skin ICD-10: R20.2 ICD-9: 782.0 08/13/2015 Migraine, unspecified, not intractable, without status [...] Item Item Code Result Date Culture Urine [id number] URINE CULTURE SEE NOTES 01/02/2018 Urine Culture Ucult Preliminary NO Growth Day 1 12/31/2017 Urine Culture Ucult Complete Growth of aerobe sent to ref lab 12/31/2017 Cbc With Differential Ord2 WBC 12.88 K/ul 03/16/2016 Cbc With Differential Ord2 RBC 4.07 M/ul 03/16/2016 Cbc With Differential Ord2 HGB 13.6 g/dl 03/16/2016 Cbc With Differential Ord2 HCT 41.3 % 03/16/2016 Cbc With Differential Ord2 Neut% 68.4 % 03/16/2016 Cbc With Differential Ord2 MCV 101.5 fl 03/16/2016 Cbc With Differential Ord2 Lymph% 23.5 % 03/16/2016 Cbc With Differential Ord2 MCH 33.4 pg 03/16/2016 Cbc With Differential Ord2 [place]% 7.7 % 03/16/2016 Cbc With Differential Ord2 [...] 3.03 K/ul 03/16/2016 Cbc With Differential Ord2 [place] ABS# 1.0 K/ul 03/16/2016 Cbc With Differential Ord2 Eos ABS# 0.0 K/ul 03/16/2016 Cbc With Differential Ord2 Baso ABS# 0.0 K/ul 03/16/2016 Comp Metabolic Jcx849 NA 138 mEq/L 03/16/2016 Comp Metabolic Nog370 K 4.0 mEq/L 03/16/2016 Comp Metabolic Dgx766 CL 106 mEq/L 03/16/2016 Comp Metabolic Ivn595 CO2 25.0 mEq/L 03/16/2016 Comp Metabolic Wpa732 ANION GAP 11 03/16/2016 Comp Metabolic Boh392 GLUCOSE 91 mg/dL 03/16/2016 Comp Metabolic Wha354 Creat 0.7 mg/dL 03/16/2016 Comp Metabolic Djp482 eGFR 92 ml/min/1.73m2 03/16/2016 Comp Metabolic Kfe515 BUN 17 mg/dL 03/16/2016 Comp Metabolic Dob843 B/C Ratio 24.3 Ratio 03/16/2016 Comp Metabolic Lbn377 CALCIUM 9.1 mg/dL 03/16/2016 Comp Metabolic Loh356 ALK PHOS 80 U/L 03/16/2016 Comp Metabolic Byw859 AST(SGOT) 18 U/L 03/16/2016 Comp Metabolic Mcm632 ALT(SGPT) 29 U/L 03/16/2016 Comp Metabolic Coj696 BILI T 0.4 mg/dL 03/16/2016 Comp Metabolic Kgx436 ALBUMIN 4.2 g/dL 03/16/2016 Comp Metabolic Wse564 TPRO 6.4 g/dL 03/16/2016 Comp Metabolic Nif947 GLOB 2.2 g/dL 03/16/2016 Comp Metabolic Zpo949 A/G Ratio 1.9 Ratio 03/16/2016 Comp Metabolic Pxt518 Osmo 277 mOsmo 03/16/2016 Tsh Ord6 hTSH II 1.76 uIU/mL 07/04/2015 Comp Metabolic Sgk493 NA 138 mEq/L 07/04/2015 Comp Metabolic Gwv937 K 4.1 mEq/L 07/04/2015 Comp Metabolic Aas540 CL 103 mEq/L 07/04/2015 Comp Metabolic Aib525 CO2 24.0 mEq/L 07/04/2015 Comp Metabolic Eyn287 ANION GAP 15 07/04/2015 Comp Metabolic Lqa598 GLUCOSE 78 mg/dL 07/04/2015 Comp Metabolic Wmd137 Creat 0.8 mg/dL 07/04/2015 Comp Metabolic Lyc420 eGFR 83 ml/min/1.73m2 07/04/2015 Comp Metabolic Rcy503 BUN 16 mg/dL 07/04/2015 Comp Metabolic Uxk337 B/C Ratio 20.8 Ratio 07/04/2015 Comp Metabolic Uli040 CALCIUM 9.2 mg/dL 07/04/2015 Comp Metabolic Ezq213 ALK PHOS 70 U/L 07/04/2015 Comp Metabolic Sxn573 AST(SGOT) 23 U/L 07/04/2015 Comp Metabolic Dtu063 ALT(SGPT) 29 U/L 07/04/2015 Comp Metabolic Hyo022 BILI T 0.3 mg/dL 07/04/2015 Comp Metabolic Zve445 ALBUMIN 4.0 g/dL 07/04/2015 Comp Metabolic Klq171 TPRO 6.1 g/dL 07/04/2015 Comp Metabolic Pek133 GLOB 2.1 g/dL 07/04/2015 Comp Metabolic Psr652 A/G Ratio 1.9 Ratio 07/04/2015 Comp Metabolic Mhe015 Osmo 276 mOsmo 07/04/2015 Cbc With Differential Ord2 WBC 8.94 K/ul 07/04/2015 Cbc With Differential Ord2 RBC 4.14 M/ul 07/04/2015 Cbc With Differential Ord2 HGB 13.6 g/dl 07/04/2015 Cbc With Differential Ord2 HCT 43.2 % 07/04/2015 Cbc With Differential Ord2 Neut% 53.4 % 07/04/2015 Cbc With Differential Ord2 MCV 104.3 fl 07/04/2015 Cbc With Differential Ord2 Lymph% 36.7 % 07/04/2015 Cbc With Differential Ord2 MCH 32.9 pg 07/04/2015 Cbc With Differential Ord2 [place]% 8.2 % 07/04/2015 Cbc With Differential Ord2 Eos% 1.3 % 07/04/2015 Cbc With Differential Ord2 MCHC 31.5 pg 07/04/2015 Cbc With Differential Ord2 PLT 225 K/ul 07/04/2015 Cbc With Differential Ord2 Baso% 0.4 % 07/04/2015 Cbc With Differential Ord2 Neut ABS# 4.77 K/ul 07/04/2015 Cbc With Differential Ord2 RDW 14.9 % 07/04/2015 Cbc With Differential Ord2 Lymph ABS# 3.28 K/ul 07/04/2015 Cbc With Differential Ord2 [place] ABS# 0.7 K/ul 07/04/2015 Cbc With Differential Ord2 Eos ABS# 0.1 K/ul 07/04/2015 Cbc With Differential Ord2 Baso ABS# 0.0 K/ul 07/04/2015 Cbc With Differential Ord2 New Analyzer Notice Please note new ref ranges starting 05-21-2015 due to implemntation of new five part differential hematolgy analyzer. 07/04/2015 Review of Systems System Result Effective [...] Code : 8480-6 BMI: 24.1 Code : 17212-7 Heart Rate 1 : 80 bpm Height: 5'2" SpO2: 96% Weight: 132 lbs 12/28/2017 Blood Pressure 1: 118/70 Code : 8480-6 BMI: 24.5 Code : 96293-8 Heart Rate 1 : 80 bpm Height: 5'2" SpO2: 98% Weight: 134 lbs 07/22/2016 Blood Pressure 1: 136/74 Code : 8480-6 BMI: 24.5 Code : 83584-9 Heart Rate 1 : 78 bpm Height: 5'2" SpO2: 98% Weight: 134 lbs 03/25/2016 Blood Pressure 1: 128/86 Code : 8480-6 BMI: 24.5 Code : 08067-4 Heart Rate 1 : 89 bpm Height: 5'2" SpO2: 96% Weight: 134 lbs 03/16/2016 Blood Pressure 1: 152/92 Code : 8480-6 BMI: 24.5 Code : 10164-9 Heart Rate 1 : 85 bpm Height: 5'2" SpO2: 99% Weight: 134 lbs 09/11/2015 Blood Pressure 1: 138/80 Code : 8480-6 08/13/2015 Blood Pressure 1: 160/90 Code : 8480-6 Blood Pressure 1: 164/98 Code: 8480-6 BMI: 24.9 Code: 71327-6 Heart Rate 1: 112 bpm Height: 5'2" SpO2: 97% Weight: 136 lbs 07/03/2015 Blood Pressure 1: 120/70 Code : 8480-6 BMI: 25.1 Code : 52230-6 Heart Rate 1 : 87 bpm Height: 5'2" SpO2: 96% Weight: 137 lbs 09/27/2014 Blood Pressure 1: 130/72 Code : 8480-6 BMI: 25.4 Code : 18485-4 Heart Rate 1 : 92 bpm Height: [...] data Encounters Encounter Performer Location Codes Date (213 EST. PATIENT, LEVEL III Diagnosis: Gastro-esophageal reflux disease with esophagitis[ICD10: K21.0] Vale Costello MD, [facility] CPT-4: 77365 05/19/2018 16548 EST. PATIENT, LEVEL III Diagnosis: Dysuria[ICD10: R30.0] Diagnosis: Essential (primary) hypertension[ICD10: I10] Marisa Costello MD, [facility] CPT-4: 81245 12/28/2017 ([id number]) 96568 EST. PATIENT, LEVEL III Diagnosis: Essential (primary) hypertension[ICD10: I10] Diagnosis: Generalized anxiety disorder[ICD10: F41.1] Vale Costello MD, [facility] CPT-4: 29922 07/22/2016 ([id number]) 17674 EST. PATIENT, LEVEL IV Diagnosis: Gastro-esophageal reflux disease with esophagitis[ICD10: K21.0] Diagnosis: Essential (primary) hypertension[ICD10: I10] Diagnosis: Low back pain[ICD10: M54.5] Vale Costello MD, [facility] CPT-4: 50124 03/25/2016 07008 EST. PATIENT, LEVEL IV Diagnosis: Pelvic and perineal pain[ICD10: R10.2] Marisa Costello MD, [facility] CPT-4: 73411 03/16/2016 ([id number]) Miscellaneous no charge Diagnosis: Essential (primary) hypertension[ICD10: I10] Marisa Costello MD, [facility] CPT-4: 55180 09/11/2015 10243 EST. PATIENT, LEVEL III Diagnosis: Pain in left finger(s)[ICD10: M79.645] Diagnosis: Paresthesia of skin[ICD10: R20.2] Diagnosis: Essential (primary) hypertension[ICD10: I10] [facility] CPT-4: 37125 08/13/2015 ([id number]) 82701 EST. PATIENT, LEVEL III Diagnosis: Migraine, unspecified, not intractable, without status migrainosus[ ICD10: G43.909] Diagnosis: Other hypertrophic disorders of the skin[ICD10: L91.8] [facility] CPT-4: 96701 07/03/2015 ([id number]) PREV VISIT NEW AGE 40-64 Diagnosis: Well adult exam[ICD9: V70.0] [facility] CPT-4: 54612 09/27/2014 Plan of Care Planned Activity Notes Codes Status Date Ref[facility]: [phone] [place] [address] Referral Completed 05/31/2018 Visit Plan: Esophageal Reflux - the patient has been counseled against excessive intake of caffeine, spicy foods, peppermint, and cinnamon - all of which can exacerbate esophageal reflux. The patient is to take medications as prescribed and call the office if the symptoms are not improving. 05/19/2018 Appointment: Vale Youngblood WPtel: [address] [place] [address] (30 min) Complex 05/19/2018 Patient Education: Patient Medication Summary Completed 05/19/2018 Care Plan: Referral Order SNOMED-CT : 451542519 Pending 05/19/2018 Visit Plan: UTI - pt [...] at home. 12/28/2017 Appointment: Marisa Wilcox WPtel: [facility] (15 min) Moderate 12/28/2017 Patient Education: Patient [...] of plan. 07/22/2016 Appointment: Vale Youngblood WPtel: [phone] (30 min) Complex 07/22/2016 Patient Education: [...] Dr Mccrary 03/25/2016 Appointment: Vale Youngblood WPtel: [facility] (15 min) Moderate 03/25/2016 Patient Education: Patient [...] with any questions or concerns. 03/16/2016 Appointment: Vale Youngblood WPtel: [facility] [place] (15 min) Moderate 03/16/2016 Patient Education: [...] Care Plan: COMPLETE CBC AUTOMATED LOINC : 87804-1 Ordered 09/27/2014 Referral: LevyFabiola duckworthtt [phone] [facility] [place] Referral Appointment Requested Instructions Comment PROTONIX [...]
--- OUTSIDE RECORDS SUMMARY | 2018-07-09 09:08 | XMS REPORT | CCD ---
Author Author Vale Youngblood Organization [facility] Address [address] [place] [address] Phone Care Team Providers Care Hotel Reservation Agent Name Role Phone PP Unavailable CCM Unavailable Summary Purpose Interface Exchange Insurance Providers Payer name Policy type / Coverage type Covered constitution party ID Effective Begin Date Effective End Date [place] [facility] [id number] Unknown Family history Father Diagnosis Age At [...] employed [employer] 09/27/[address]: 36673521 Currently smokes tobacco 09/27/[address]: 62871990 Currently smokes tobacco 09/27/2014 Number of cigarettes/day Unknown 10 ( Half a pack) 09/27/2014 Number of cigarettes/day Unknown 10 ( Half a pack) 09/27/[address]: 729859 Currently drinks alcohol 09/27/[address]: 555491 Currently drinks alcohol 09/27/2014 Frequency of drinks SNOMED CT: 882917108 1-4 drinks per week 09/27/2014 Frequency of drinks SNOMED CT: 444707405 1-4 drinks per week 09/27/2014 Allergies, Adverse [...] 03/24/2016 Unknown Pelvic and perineal pain ICD-9: [id number] ICD-10: R10.2 Active 03/15/2016 Unknown Pain in [...] 03/24/2016 Active Pelvic and perineal pain ICD-9: [id number] ICD-10: R10.2 03/15/2016 Active Pain in left [...] 50 mg tablet,extended release 24 hr RxNorm: 385224 1 Tablet(s) PO daily 12/28/2017 04/26/2018 Inactive Imitrex 50 mg tablet RxNorm: 737987 1 Tablet(s) PO PRN 2017 No Stop Date Active [SAVINGS FOR NON-COVERED DRUGS -- BIN:[id number], PCN: ASPROD1, Group: XXXXX, ID # [id number], Questions: . THIS IS NOT INSURANCE.] Protonix 40 mg tablet,delayed release RxNorm: 766790 1 Tablet(s) PO daily 12/28/2017 01/26/2018 Inactive Bactrim DS 800 mg-160 mg tablet RxNorm: 201081 1 Tablet(s) PO BID 12/28/2017 01/06/2018 Inactive Carafate 1 gram tablet RxNorm: 179178 1 TABLET(S) PO AC & HS 12/15/2017 Inactive dissolve in water and drink as slurry Carafate 1 gram tablet RxNorm: 510152 1 TABLET(S) PO AC & HS 10/26/2016 Inactive dissolve in water and drink as slurry Xanax 0.25 mg tablet RxNorm: 062780 1 Tablet(s) PO QDAY PRN No Stop Date Active Carafate 1 gram tablet RxNorm: 643141 1 Tablet(s) PO AC & HS 08/20/2016 Inactive dissolve in water and drink as slurry Carafate 1 gram tablet RxNorm: 643889 1 Tablet(s) PO AC & HS 07/21/2016 Inactive dissolve in water and drink as slurry Protonix 40 mg tablet,delayed release RxNorm: 038151 1 Tablet(s) PO BID 07/22/2016 08/04/2016 Inactive Protonix 40 mg tablet,delayed release RxNorm: 832488 1 Tablet(s) PO BID 04/02/2016 04/01/2016 Inactive Protonix 40 mg tablet,delayed release RxNorm: 494904 1 Tablet(s) PO BID 04/02/2016 04/15/2016 Inactive Carafate 1 gram tablet RxNorm: 246599 1 Tablet(s) PO AC & HS 04/03/2016 Inactive dissolve in water and drink as slurry Nexium 40 mg capsule,delayed release RxNorm: 157517 1 Capsule(s) PO daily 03/24/2016 07/21/2016 Inactive if nexium is failed by insurance we will order prilosec 40mg daily #30 Nexium 40 mg capsule,delayed release RxNorm: 871628 1 Capsule(s) PO daily 03/24/2016 03/23/2016 Inactive if nexium is failed by insurance we will order prilosec 40mg daily #30 Norvasc 5 mg tablet RxNorm: 503067 1 Tablet(s) PO daily 201509/12/2015 Inactive Norvasc 5 mg tablet RxNorm: 054458 1 Tablet(s) PO daily 201508/13/2015 Inactive Imitrex 50 mg tablet RxNorm: 404167 1 Tablet(s) PO PRN 201512/27/2017 Inactive [SAVINGS FOR NON-COVERED DRUGS -- BIN:191068, PCN: [id number], Group: XXXXX, ID # [id number], Questions: . THIS IS NOT INSURANCE.] Imitrex 50 mg tablet RxNorm: 649420 1 Tablet(s) PO PRN 201407/02/2015 Inactive [SAVINGS FOR NON-COVERED DRUGS -- BIN:304031, PCN: ASPROD1, Group: XXXXX, ID # [id number], Questions: . THIS IS NOT INSURANCE.] aspirin 81 mg tablet RxNorm: 075667 1 Tablet(s) PO daily No Start Date Active metoprolol succinate ER 50 mg tablet,extended release 24 hr RxNorm: 674508 1 Tablet(s) PO daily No Start Date [...] Pelvic and perineal pain ICD-10: R10.2 ICD-9: [id number] 03/16/2016 Pain in left finger(s) ICD-10: M79.645 [...] Item Item Code Result Date Culture Urine [id number] URINE CULTURE SEE NOTES 01/02/2018 Urine Culture [...] 33.4 pg 03/16/2016 Cbc With Differential Ord2 [place]% 7.7 % 03/16/2016 Cbc With Differential Ord2 [...] 3.03 K/ul 03/16/2016 Cbc With Differential Ord2 [place] ABS# 1.0 K/ul 03/16/2016 Cbc With Differential Ord2 Eos ABS# 0.0 K/ul 03/16/2016 Cbc With Differential Ord2 Baso ABS# 0.0 K/ul 03/16/2016 Comp Metabolic Abb135 NA 138 mEq/L 03/16/2016 Comp Metabolic Elz278 K 4.0 mEq/L 03/16/2016 Comp Metabolic Yyt725 CL 106 mEq/L 03/16/2016 Comp Metabolic Ibk660 CO2 25.0 mEq/L 03/16/2016 Comp Metabolic Cfz416 ANION GAP 11 03/16/2016 Comp Metabolic Vkz037 GLUCOSE 91 mg/dL 03/16/2016 Comp Metabolic Czc033 Creat 0.7 mg/dL 03/16/2016 Comp Metabolic Ecg832 eGFR 92 ml/min/1.73m2 03/16/2016 Comp Metabolic Duj357 BUN 17 mg/dL 03/16/2016 Comp Metabolic Kmt694 B/C Ratio 24.3 Ratio 03/16/2016 Comp Metabolic Uct763 CALCIUM 9.1 mg/dL 03/16/2016 Comp Metabolic Gij338 ALK PHOS 80 U/L 03/16/2016 Comp Metabolic Fbo596 AST(SGOT) 18 U/L 03/16/2016 Comp Metabolic Etx418 ALT(SGPT) 29 U/L 03/16/2016 Comp Metabolic Chs472 BILI T 0.4 mg/dL 03/16/2016 Comp Metabolic Agc161 ALBUMIN 4.2 g/dL 03/16/2016 Comp Metabolic Ebs409 TPRO 6.4 g/dL 03/16/2016 Comp Metabolic Nwv291 GLOB 2.2 g/dL 03/16/2016 Comp Metabolic Ydb524 A/G Ratio 1.9 Ratio 03/16/2016 Comp Metabolic Tcr338 Osmo 277 mOsmo 03/16/2016 Tsh Ord6 hTSH II 1.76 uIU/mL 07/04/2015 Comp Metabolic Vwr485 NA 138 mEq/L 07/04/2015 Comp Metabolic Aws326 K 4.1 mEq/L 07/04/2015 Comp Metabolic Tro165 CL 103 mEq/L 07/04/2015 Comp Metabolic Cwk273 CO2 24.0 mEq/L 07/04/2015 Comp Metabolic Nwt692 ANION GAP 15 07/04/2015 Comp Metabolic Fyb696 GLUCOSE 78 mg/dL 07/04/2015 Comp Metabolic Fhi971 Creat 0.8 mg/dL 07/04/2015 Comp Metabolic Pvt095 eGFR 83 ml/min/1.73m2 07/04/2015 Comp Metabolic Kls087 BUN 16 mg/dL 07/04/2015 Comp Metabolic Pat538 B/C Ratio 20.8 Ratio 07/04/2015 Comp Metabolic Ciu186 CALCIUM 9.2 mg/dL 07/04/2015 Comp Metabolic Hpn194 ALK PHOS 70 U/L 07/04/2015 Comp Metabolic Nzs443 AST(SGOT) 23 U/L 07/04/2015 Comp Metabolic Jex209 ALT(SGPT) 29 U/L 07/04/2015 Comp Metabolic Sqh951 BILI T 0.3 mg/dL 07/04/2015 Comp Metabolic Vzj001 ALBUMIN 4.0 g/dL 07/04/2015 Comp Metabolic Ubs150 TPRO 6.1 g/dL 07/04/2015 Comp Metabolic Imr300 GLOB 2.1 g/dL 07/04/2015 Comp Metabolic Ikf060 A/G Ratio 1.9 Ratio 07/04/2015 Comp Metabolic Fhk427 Osmo 276 mOsmo 07/04/2015 Cbc With Differential [...] 32.9 pg 07/04/2015 Cbc With Differential Ord2 [place]% 8.2 % 07/04/2015 Cbc With Differential Ord2 [...] 3.28 K/ul 07/04/2015 Cbc With Differential Ord2 [place] ABS# 0.7 K/ul 07/04/2015 Cbc With Differential [...] Code : 8480-6 BMI: 24.1 Code : 08857-6 Heart Rate 1 : 80 bpm Height: 5'2" SpO2: 96% Weight: 132 lbs 12/28/2017 Blood Pressure 1: 118/70 Code : 8480-6 BMI: 24.5 Code : 57055-8 Heart Rate 1 : 80 bpm Height: 5'2" SpO2: 98% Weight: 134 lbs 07/22/2016 Blood Pressure 1: 136/74 Code : 8480-6 BMI: 24.5 Code : 66985-1 Heart Rate 1 : 78 bpm Height: 5'2" SpO2: 98% Weight: 134 lbs 03/25/2016 Blood Pressure 1: 128/86 Code : 8480-6 BMI: 24.5 Code : 85912-5 Heart Rate 1 : 89 bpm Height: 5'2" SpO2: 96% Weight: 134 lbs 03/16/2016 Blood Pressure 1: 152/92 Code : 8480-6 BMI: 24.5 Code : 36878-7 Heart Rate 1 : 85 bpm Height: 5'2" SpO2: 99% Weight: 134 lbs 09/11/2015 Blood Pressure 1: 138/80 Code : 8480-6 08/13/2015 Blood Pressure 1: 164/98 Code : 8480-6 Blood Pressure 1: 160/90 Code: 8480-6 BMI: 24.9 Code: 56924-0 Heart Rate 1: 112 bpm Height: 5'2" SpO2: 97% Weight: 136 lbs 07/03/2015 Blood Pressure 1: 120/70 Code : 8480-6 BMI: 25.1 Code : 90202-5 Heart Rate 1 : 87 bpm Height: 5'2" SpO2: 96% Weight: 137 lbs 09/27/2014 Blood Pressure 1: 130/72 Code : 8480-6 BMI: 25.4 Code : 09461-2 Heart Rate 1 : 92 bpm Height: [...] disease with esophagitis[ICD10: K21.0] Vale Costello MD, [facility] CPT-4: 72870 05/19/2018 [id number] EST. PATIENT, LEVEL III Diagnosis: Dysuria[ICD10: R30.0] Diagnosis: Essential (primary) hypertension[ICD10: I10] Marisa Costello MD, [facility] CPT-4: 27261 12/28/2017 ([id number]) 16317 EST. PATIENT, LEVEL III Diagnosis: Essential (primary) hypertension[ICD10: I10] Diagnosis: Generalized anxiety disorder[ICD10: F41.1] Vale Costello MD, [facility] CPT-4: 07996 07/22/2016 ([id number]) 08011 EST. PATIENT, LEVEL IV Diagnosis: Gastro-esophageal reflux disease with esophagitis[ICD10: K21.0] Diagnosis: Essential (primary) hypertension[ICD10: I10] Diagnosis: Low back pain[ICD10: M54.5] Vale Costello MD, [facility] CPT-4: 82881 03/25/2016 30824 EST. PATIENT, LEVEL IV Diagnosis: Pelvic and perineal pain[ICD10: R10.2] Marisa Costello MD, [facility] CPT-4: 67355 03/16/2016 ([id number]) Miscellaneous no charge Diagnosis: Essential (primary) hypertension[ICD10: I10] Marisa Costello MD, [facility] CPT-4: 41549 09/11/2015 34863 EST. PATIENT, LEVEL III Diagnosis: Pain in left finger(s)[ICD10: M79.645] Diagnosis: Paresthesia of skin[ICD10: R20.2] Diagnosis: Essential (primary) hypertension[ICD10: I10] [facility] CPT-4: 22417 08/13/2015 ([id number]) 05515 EST. PATIENT, LEVEL III Diagnosis: Migraine, unspecified, not intractable, without status migrainosus[ ICD10: G43.909] Diagnosis: Other hypertrophic disorders of the skin[ICD10: L91.8] [facility] CPT-4: 07857 07/03/2015 ([id number]) PREV VISIT NEW AGE 40-64 Diagnosis: Well adult exam[ICD9: V70.0] [facility] CPT-4: 60556 09/27/2014 Plan of Care Planned Activity Notes Codes Status Date Visit Plan: Esophageal Reflux - the patient has been counseled against excessive intake of caffeine, spicy foods, peppermint, and cinnamon - all of which can exacerbate esophageal reflux. The patient is to take medications as prescribed and call the office if the symptoms are not improving. 05/19/2018 Patient Education: Patient Medication Summary Completed 05/19/2018 Care Plan: Referral Order SNOMED-CT : [id number] Pending 05/19/2018 Visit Plan: UTI - pt [...] at home. 12/28/2017 Appointment: Marisa Wilcox WPtel: [address] [place], [place] [id number] (15 min) Moderate 12/28/2017 Patient Education: Patient [...] of plan. 07/22/2016 Appointment: Vale Youngblood WPtel: [phone] (30 min) Complex 07/22/2016 Patient Education: Patient [...] Dr Mccrary 03/25/2016 Appointment: Vale Youngblood WPtel: [phone] (15 min) Moderate 03/25/2016 Patient Education: Patient [...] or concerns. 03/16/2016 Appointment: Vale Youngblood WPtel: [phone] (15 min) Moderate 03/16/2016 Patient Education: Patient [...] Care Plan: COMPLETE CBC AUTOMATED LOINC : 35162-7 Ordered 09/27/2014 Referral: Boo Levy HPtel:[phone] [id number] [place] Referral Appointment Requested Instructions Comment PROTONIX [...]
--- OUTSIDE RECORDS SUMMARY | 2018-07-09 09:09 | XMS REPORT | CCD ---
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 [employer]/[facility] [id number] Unknown Family history Father Diagnosis Age At [...] employed [employer] 09/27/[address]: 55428024 Currently smokes tobacco 09/27/[address]: 06287859 Currently smokes tobacco 09/27/2014 Number of cigarettes/day Unknown 10 ( Half a pack) 09/27/2014 Number of cigarettes/day Unknown 10 ( Half a pack) 09/27/[address]: 590198 Currently drinks alcohol 09/27/[address]: 647653 Currently drinks alcohol 09/27/2014 Frequency of drinks SNOMED CT: 479076662 1-4 drinks per week 09/27/2014 Frequency of drinks SNOMED CT: 689693818 1-4 drinks per week 09/27/2014 Allergies, Adverse Reactions, Alerts Substance Reaction Codes Entered Date Inactivated Date Status * NO KNOWN DRUG ALLERGIES Unknown 09/27/2014 No Inactive Date Active * NO KNOWN DRUG ALLERGIES Unknown 09/27/2014 No Inactive Date Active Past Medical History Illness Codes Condition Status Onset Date Resolved Date Hypertension Unknown Active 12/28/2017 Unknown Dysuria ICD-9: 788.1 ICD-10: R30.0 Active 12/28/2017 Unknown Essential (primary) hypertension ICD-9: 401.9 ICD-10: I10 Active 03/24/2016 Unknown Generalized anxiety disorder ICD-9: 300.02 ICD-10: F41.1 Active 07/22/2016 Unknown Gastro-esophageal reflux disease with esophagitis ICD-9: 530.11 ICD-10: K21.0 Active 03/24/2016 Unknown Low back pain ICD-9: 724.2 ICD-10: M54.5 Active 03/24/2016 Unknown Pelvic and perineal pain ICD-9: [id number] ICD-10: R10.2 Active 03/15/2016 Unknown Pain in [...] Problems Condition Codes Effective Dates Condition Status Hypertension Unknown 12/28/2017 Active Dysuria ICD-9: 788.1 ICD-10: R30.0 12/28/2017 Active Essential (primary) hypertension ICD-9: 401.9 ICD-10: I10 03/24/2016 Active Generalized anxiety disorder ICD-9: 300.02 ICD-10: F41.1 07/22/2016 Active Gastro-esophageal reflux disease with esophagitis ICD-9: 530.11 ICD-10: K21.0 03/24/2016 Active Low back pain ICD-9: 724.2 ICD-10: M54.5 03/24/2016 Active Pelvic and perineal pain ICD-9: [id number] ICD-10: R10.2 03/15/2016 Active Pain in left [...] 50 mg tablet,extended release 24 hr RxNorm: 216264 1 Tablet(s) PO daily 12/28/2017 04/26/2018 Active Imitrex 50 mg tablet RxNorm: 042436 1 Tablet(s) PO PRN 2017 No Stop Date Active [SAVINGS FOR NON-COVERED DRUGS -- BIN:[id number], PCN: [id number], Group: XXXXX, ID # [id number], Questions: . THIS IS NOT INSURANCE.] Protonix 40 mg tablet,delayed release RxNorm: 599219 1 Tablet(s) PO daily 12/28/2017 01/26/2018 Active Bactrim DS 800 mg-160 mg tablet RxNorm: 082972 1 Tablet(s) PO BID 12/28/2017 01/06/2018 Active Carafate 1 gram tablet RxNorm: 944100 1 TABLET(S) PO AC & HS 12/15/2017 Inactive dissolve in water and drink as slurry Carafate 1 gram tablet RxNorm: 254880 1 TABLET(S) PO AC & HS 10/26/2016 Inactive dissolve in water and drink as slurry Xanax 0.25 mg tablet RxNorm: 670299 1 Tablet(s) PO QDAY PRN No Stop Date Active Carafate 1 gram tablet RxNorm: 726715 1 Tablet(s) PO AC & HS 08/20/2016 Inactive dissolve in water and drink as slurry Carafate 1 gram tablet RxNorm: 983426 1 Tablet(s) PO AC & HS 07/21/2016 Inactive dissolve in water and drink as slurry Protonix 40 mg tablet,delayed release RxNorm: 269181 1 Tablet(s) PO BID 07/22/2016 08/04/2016 Inactive Protonix 40 mg tablet,delayed release RxNorm: 107321 1 Tablet(s) PO BID 04/02/2016 04/01/2016 Inactive Protonix 40 mg tablet,delayed release RxNorm: 259993 1 Tablet(s) PO BID 04/02/2016 04/15/2016 Inactive Carafate 1 gram tablet RxNorm: 531982 1 Tablet(s) PO AC & HS 04/03/2016 Inactive dissolve in water and drink as slurry Nexium 40 mg capsule,delayed release RxNorm: 984506 1 Capsule(s) PO daily 03/24/2016 07/21/2016 Inactive if nexium is failed by insurance we will order prilosec 40mg daily #30 Nexium 40 mg capsule,delayed release RxNorm: 002783 1 Capsule(s) PO daily 03/24/2016 03/23/2016 Inactive if nexium is failed by insurance we will order prilosec 40mg daily #30 Norvasc 5 mg tablet RxNorm: 238263 1 Tablet(s) PO daily 201509/12/2015 Inactive Norvasc 5 mg tablet RxNorm: 549115 1 Tablet(s) PO daily 201508/13/2015 Inactive Imitrex 50 mg tablet RxNorm: 402199 1 Tablet(s) PO PRN 201512/27/2017 Inactive [SAVINGS FOR NON-COVERED DRUGS -- BIN:[id number], PCN: [id number], Group: XXXXX, ID # [id number], Questions: . THIS IS NOT INSURANCE.] Imitrex 50 mg tablet RxNorm: 669717 1 Tablet(s) PO PRN 201407/02/2015 Inactive [SAVINGS FOR NON-COVERED DRUGS -- BIN:[id number], PCN: ASPROD1, Group: XXXXX, ID # [id number], Questions: . THIS IS NOT INSURANCE.] aspirin 81 mg tablet RxNorm: 703491 1 Tablet(s) PO daily No Start Date Active metoprolol succinate ER 50 mg tablet,extended release 24 hr RxNorm: 456452 1 Tablet(s) PO daily No Start Date 2017 Inactive Medication Administered No Medication Administered data Immunizations Vaccine Codes Date Status Influenza CVX: 141 02/16/2017 completed Influenza CVX: 141 03/02/2016 completed Influenza CVX: 141 02/21/2015 completed Influenza CVX: 141 03/09/2014 completed Assessments Condition Codes Effective Dates Essential (primary) hypertension ICD-10: I10 ICD-9: 401.9 12/28/2017 Dysuria ICD-10: R30.0 ICD-9: 788.1 12/28/2017 Generalized anxiety disorder ICD-10: F41.1 ICD-9: 300.02 07/22/2016 Gastro-esophageal reflux disease with esophagitis ICD-10: K21.0 ICD-9: 530.11 03/25/2016 Low back pain ICD-10: M54.5 ICD-9: 724.2 03/25/2016 Pelvic and perineal pain ICD-10: R10.2 ICD-9: [id number] 03/16/2016 Pain in left finger(s) ICD-10: M79.645 ICD-9: 729.5 08/13/2015 Paresthesia of skin ICD-10: R20.2 ICD-9: 782.0 08/13/2015 Migraine, unspecified, not intractable, without status migrainosus ICD-10: G43.909 ICD-9: 346.90 07/03/2015 Other hypertrophic disorders of the skin ICD-10: L91.8 ICD-9: 701.9 07/03/2015 Well adult exam ICD-9: V70.0 09/27/2014 Reason For Visit Reason For Visit Effective Dates Notes urinary frequency 12/28/2017 anxiety 07/22/2016 chest pain/pressure 03/25/2016 pelvic pain 03/16/2016 blood pressure followup 09/11/2015 finger and hand pain 08/13/2015 skin lesion 07/03/2015 headache 09/27/2014 Results Observation Observation Code Item Item Code Result Date Cbc With Differential Ord2 WBC 12.88 K/ul [...] 33.4 pg 03/16/2016 Cbc With Differential Ord2 [place]% 7.7 % 03/16/2016 Cbc With Differential Ord2 Eos% 0.2 % 03/16/2016 Cbc With Differential Ord2 MCHC 32.9 pg 03/16/2016 Cbc With Differential Ord2 PLT 242 K/ul 03/16/2016 Cbc With Differential Ord2 Baso% 0.2 % 03/16/2016 Cbc With Differential Ord2 RDW 13.6 % 03/16/2016 Cbc With Differential Ord2 Neut ABS# 8.81 K/ul 03/16/2016 Cbc With Differential Ord2 Lymph ABS# 3.03 K/ul 03/16/2016 Cbc With Differential Ord2 [place] ABS# 1.0 K/ul 03/16/2016 Cbc With Differential Ord2 Eos ABS# 0.0 K/ul 03/16/2016 Cbc With Differential Ord2 Baso ABS# 0.0 K/ul 03/16/2016 Comp Metabolic Vzz196 NA 138 mEq/L 03/16/2016 Comp Metabolic Wgi328 K 4.0 mEq/L 03/16/2016 Comp Metabolic Kex139 CL 106 mEq/L 03/16/2016 Comp Metabolic Xxx407 CO2 25.0 mEq/L 03/16/2016 Comp Metabolic Klj106 ANION GAP 11 03/16/2016 Comp Metabolic Acc061 GLUCOSE 91 mg/dL 03/16/2016 Comp Metabolic Wvb710 Creat 0.7 mg/dL 03/16/2016 Comp Metabolic Fgc238 eGFR 92 ml/min/1.73m2 03/16/2016 Comp Metabolic Slr359 BUN 17 mg/dL 03/16/2016 Comp Metabolic Bod343 B/C Ratio 24.3 Ratio 03/16/2016 Comp Metabolic Rrf977 CALCIUM 9.1 mg/dL 03/16/2016 Comp Metabolic Fnl053 ALK PHOS 80 U/L 03/16/2016 Comp Metabolic Odi381 AST(SGOT) 18 U/L 03/16/2016 Comp Metabolic Mfy847 ALT(SGPT) 29 U/L 03/16/2016 Comp Metabolic Kww315 BILI T 0.4 mg/dL 03/16/2016 Comp Metabolic Gco516 ALBUMIN 4.2 g/dL 03/16/2016 Comp Metabolic Ktq748 TPRO 6.4 g/dL 03/16/2016 Comp Metabolic Blk457 GLOB 2.2 g/dL 03/16/2016 Comp Metabolic Pus569 A/G Ratio 1.9 Ratio 03/16/2016 Comp Metabolic Kuj687 Osmo 277 mOsmo 03/16/2016 Tsh Ord6 hTSH II 1.76 uIU/mL 07/04/2015 Comp Metabolic Oud568 NA 138 mEq/L 07/04/2015 Comp Metabolic Szu687 K 4.1 mEq/L 07/04/2015 Comp Metabolic Gsq698 CL 103 mEq/L 07/04/2015 Comp Metabolic Teg627 CO2 24.0 mEq/L 07/04/2015 Comp Metabolic Rit144 ANION GAP 15 07/04/2015 Comp Metabolic Qaq747 GLUCOSE 78 mg/dL 07/04/2015 Comp Metabolic Lze718 Creat 0.8 mg/dL 07/04/2015 Comp Metabolic Unq451 eGFR 83 ml/min/1.73m2 07/04/2015 Comp Metabolic Ufy106 BUN 16 mg/dL 07/04/2015 Comp Metabolic Uoe428 B/C Ratio 20.8 Ratio 07/04/2015 Comp Metabolic Tnw077 CALCIUM 9.2 mg/dL 07/04/2015 Comp Metabolic Mle237 ALK PHOS 70 U/L 07/04/2015 Comp Metabolic Tbm586 AST(SGOT) 23 U/L 07/04/2015 Comp Metabolic Bsk360 ALT(SGPT) 29 U/L 07/04/2015 Comp Metabolic Bcs133 BILI T 0.3 mg/dL 07/04/2015 Comp Metabolic Emd841 ALBUMIN 4.0 g/dL 07/04/2015 Comp Metabolic Wea150 TPRO 6.1 g/dL 07/04/2015 Comp Metabolic Pmp444 GLOB 2.1 g/dL 07/04/2015 Comp Metabolic Yum700 A/G Ratio 1.9 Ratio 07/04/2015 Comp Metabolic Fos837 Osmo 276 mOsmo 07/04/2015 Cbc With Differential Ord2 WBC 8.94 K/ul 07/04/2015 Cbc With Differential Ord2 RBC 4.14 M/ul 07/04/2015 Cbc With Differential Ord2 HGB 13.6 g/dl 07/04/2015 Cbc With Differential Ord2 HCT 43.2 % 07/04/2015 Cbc With Differential Ord2 Neut% 53.4 % 07/04/2015 Cbc With Differential Ord2 Lymph% 36.7 % 07/04/2015 Cbc With Differential Ord2 MCV 104.3 fl 07/04/2015 Cbc With Differential Ord2 MCH 32.9 pg 07/04/2015 Cbc With Differential Ord2 [place]% 8.2 % 07/04/2015 Cbc With Differential Ord2 MCHC 31.5 pg 07/04/2015 Cbc With Differential Ord2 Eos% 1.3 % 07/04/2015 Cbc With Differential Ord2 Baso% 0.4 % 07/04/2015 Cbc With Differential Ord2 PLT 225 K/ul 07/04/2015 Cbc With Differential Ord2 Neut ABS# 4.77 K/ul 07/04/2015 Cbc With Differential Ord2 RDW 14.9 % 07/04/2015 Cbc With Differential Ord2 Lymph ABS# 3.28 K/ul 07/04/2015 Cbc With Differential Ord2 [place] ABS# 0.7 K/ul 07/04/2015 Cbc With Differential Ord2 Eos ABS# 0.1 K/ul 07/04/2015 Cbc With Differential Ord2 Baso ABS# 0.0 K/ul 07/04/2015 Cbc With Differential Ord2 New Analyzer Notice Please note new ref ranges starting 05-21-2015 due to implemntation of new five part differential hematolgy analyzer. 07/04/2015 Review of Systems System Result Effective Dates Constitutional recent illness 12/28/2017 Constitutional No chills [...] No Procedures data Vital Signs Date Vital 12/28/2017 Blood Pressure 1: 118/70 Code : 8480-6 BMI: 24.5 Code : 75193-4 Heart Rate 1 : 80 bpm Height: 5'2" SpO2: 98% Weight: 134 lbs 07/22/2016 Blood Pressure 1: 136/74 Code : 8480-6 BMI: 24.5 Code : 05134-9 Heart Rate 1 : 78 bpm Height: 5'2" SpO2: 98% Weight: 134 lbs 03/25/2016 Blood Pressure 1: 128/86 Code : 8480-6 BMI: 24.5 Code : 59605-4 Heart Rate 1 : 89 bpm Height: 5'2" SpO2: 96% Weight: 134 lbs 03/16/2016 Blood Pressure 1: 152/92 Code : 8480-6 BMI: 24.5 Code : 58393-1 Heart Rate 1 : 85 bpm Height: 5'2" SpO2: 99% Weight: 134 lbs 09/11/2015 Blood Pressure 1: 138/80 Code : 8480-6 08/13/2015 Blood Pressure 1: 160/90 Code : 8480-6 Blood Pressure 1: 164/98 Code: 8480-6 BMI: 24.9 Code: 79737-9 Heart Rate 1: 112 bpm Height: 5'2" SpO2: 97% Weight: 136 lbs 07/03/2015 Blood Pressure 1: 120/70 Code : 8480-6 BMI: 25.1 Code : 75720-0 Heart Rate 1 : 87 bpm Height: 5'2" SpO2: 96% Weight: 137 lbs 09/27/2014 Blood Pressure 1: 130/72 Code : 8480-6 BMI: 25.4 Code : 21939-6 Heart Rate 1 : 92 bpm Height: 5'2" Weight: 139 lbs Functional Status No Functional Status data History of Present Illness Symptom Name Status Result Effective Date Notes urinary frequency Quality constant 12/28/2017 None urinary [...] data Encounters Encounter Performer Location Codes Date [address]39 EST. PATIENT, LEVEL III Diagnosis: Dysuria[ICD10: R30.0] Diagnosis: Essential (primary) hypertension[ICD10: I10] [facility] CPT-4: 36524 12/28/2017 ([id number]) 58967 EST. PATIENT, LEVEL III Diagnosis: Essential (primary) hypertension[ICD10: I10] Diagnosis: Generalized anxiety disorder[ICD10: F41.1] Vale Costello MD, [facility] CPT-4: 44241 07/22/2016 ([id number]) 70595 EST. PATIENT, LEVEL IV Diagnosis: Gastro-esophageal reflux disease with esophagitis[ICD10: K21.0] Diagnosis: Essential (primary) hypertension[ICD10: I10] Diagnosis: Low back pain[ICD10: M54.5] Vale Costello MD, [facility] CPT-4: 35107 03/25/2016 81288 EST. PATIENT, LEVEL IV Diagnosis: Pelvic and perineal pain[ICD10: R10.2] Marisa Costello MD, [facility] CPT-4: 94720 03/16/2016 ([id number]) Miscellaneous no charge Diagnosis: Essential (primary) hypertension[ICD10: I10] Marisa Costello MD, [facility] CPT-4: 64005 09/11/2015 [id number] EST. PATIENT, LEVEL III Diagnosis: Pain in left finger(s)[ICD10: M79.645] Diagnosis: Paresthesia of skin[ICD10: R20.2] Diagnosis: Essential (primary) hypertension[ICD10: I10] Marisa Costello MD, [facility] CPT-4: 16692 08/13/2015 ([id number]) 54753 EST. PATIENT, LEVEL III Diagnosis: Migraine, unspecified, not intractable, without status migrainosus[ ICD10: G43.909] Diagnosis: Other hypertrophic disorders of the skin[ICD10: L91.8] Vale Costello MD, [facility] CPT-4: 16544 07/03/2015 ([id number]) PREV VISIT NEW AGE 40-64 Diagnosis: Well adult exam[ICD9: V70.0] Vale Costello MD, [facility] CPT-4: 96731 09/27/2014 Plan of Care Planned Activity Notes Codes Status Date Visit Plan: UTI - pt with positive [...] at home. 12/28/2017 Appointment: Marisa Wilcox WPtel: [phone] [facility] (15 min) Moderate 12/28/2017 Patient Education: Patient Medication Summary Completed 12/28/2017 Care Plan: Urine Culture Pending 12/28/2017 Visit Plan: Hypertension - well controlled [...] of plan. 07/22/2016 Appointment: Vale Youngblood WPtel: [phone] (30 min) Complex 07/22/2016 Patient Education: Patient [...] Dr Mccrary 03/25/2016 Appointment: Vale Youngblood WPtel: [phone] (15 min) Moderate 03/25/2016 Patient Education: Patient [...] or concerns. 03/16/2016 [phone] [place] (15 min) Moderate 03/16/2016 Patient [...] Completed 09/27/2014 Care Plan[facility] Ordered 09/27/2014 Instructions Comment . Well Adult - pt was counseled [...]
--- OUTSIDE RECORDS SUMMARY | 2018-07-09 09:10 | XMS REPORT | CCD ---
Author Author Vale Youngblood Organization [facility] Address [address] [place] [address] Phone Care Team Providers Care Field Contact Person Name Role Phone PP Unavailable CCM Unavailable Summary Purpose Interface Exchange Insurance Providers Payer name Policy type / Coverage type Covered constitution party ID Effective Begin Date Effective End Date [place] [facility] [employer]/[facility] [id number] Unknown Family history Father Diagnosis Age At [...] employed [employer] 09/27/[address]: 72529721 Currently smokes tobacco 09/27/[address]: 53747516 Currently smokes tobacco 09/27/2014 Number of cigarettes/day Unknown 10 ( Half a pack) 09/27/2014 Number of cigarettes/day Unknown 10 ( Half a pack) 09/27/[address]: 060906 Currently drinks alcohol 09/27/[address]: 742932 Currently drinks alcohol 09/27/2014 Frequency of drinks SNOMED CT: 598767256 1-4 drinks per week 09/27/2014 Frequency of drinks SNOMED CT: 662178851 1-4 drinks per week 09/27/2014 Allergies, Adverse [...] 03/24/2016 Unknown Pelvic and perineal pain ICD-9: [id number] ICD-10: R10.2 Active 03/15/2016 Unknown Pain in [...] 03/24/2016 Active Pelvic and perineal pain ICD-9: [id number] ICD-10: R10.2 03/15/2016 Active Pain in left [...] 50 mg tablet,extended release 24 hr RxNorm: 156953 1 Tablet(s) PO daily 12/28/2017 04/26/2018 Active Imitrex 50 mg tablet RxNorm: 202112 1 Tablet(s) PO PRN 2017 No Stop Date Active [SAVINGS FOR NON-COVERED DRUGS -- BIN:[id number], PCN: ASPROD1, Group: XXXXX, ID # [id number], Questions: . THIS IS NOT INSURANCE.] Protonix 40 mg tablet,delayed release RxNorm: 204461 1 Tablet(s) PO daily 12/28/2017 01/26/2018 Active Bactrim DS 800 mg-160 mg tablet RxNorm: 317474 1 Tablet(s) PO BID 12/28/2017 01/06/2018 Active Carafate 1 gram tablet RxNorm: 298364 1 TABLET(S) PO AC & HS 12/15/2017 Inactive dissolve in water and drink as slurry Carafate 1 gram tablet RxNorm: 256522 1 TABLET(S) PO AC & HS 10/26/2016 Inactive dissolve in water and drink as slurry Xanax 0.25 mg tablet RxNorm: 535708 1 Tablet(s) PO QDAY PRN No Stop Date Active Carafate 1 gram tablet RxNorm: 589707 1 Tablet(s) PO AC & HS 08/20/2016 Inactive dissolve in water and drink as slurry Carafate 1 gram tablet RxNorm: 052895 1 Tablet(s) PO AC & HS 07/21/2016 Inactive dissolve in water and drink as slurry Protonix 40 mg tablet,delayed release RxNorm: 068134 1 Tablet(s) PO BID 07/22/2016 08/04/2016 Inactive Protonix 40 mg tablet,delayed release RxNorm: 852845 1 Tablet(s) PO BID 04/02/2016 04/01/2016 Inactive Protonix 40 mg tablet,delayed release RxNorm: 726644 1 Tablet(s) PO BID 04/02/2016 04/15/2016 Inactive Carafate 1 gram tablet RxNorm: 334384 1 Tablet(s) PO AC & HS 04/03/2016 Inactive dissolve in water and drink as slurry Nexium 40 mg capsule,delayed release RxNorm: 528349 1 Capsule(s) PO daily 03/24/2016 07/21/2016 Inactive if nexium is failed by insurance we will order prilosec 40mg daily #30 Nexium 40 mg capsule,delayed release RxNorm: 989835 1 Capsule(s) PO daily 03/24/2016 03/23/2016 Inactive if nexium is failed by insurance we will order prilosec 40mg daily #30 Norvasc 5 mg tablet RxNorm: 667648 1 Tablet(s) PO daily 201509/12/2015 Inactive Norvasc 5 mg tablet RxNorm: 034751 1 Tablet(s) PO daily 201508/13/2015 Inactive Imitrex 50 mg tablet RxNorm: 174504 1 Tablet(s) PO PRN 201512/27/2017 Inactive [SAVINGS FOR NON-COVERED DRUGS -- BIN:518943, PCN: ASPROD1, Group: XXXXX, ID # [id number], Questions: . THIS IS NOT INSURANCE.] Imitrex 50 mg tablet RxNorm: 258608 1 Tablet(s) PO PRN 201407/02/2015 Inactive [SAVINGS FOR NON-COVERED DRUGS -- BIN:493026, PCN: ASPROD1, Group: XXXXX, ID # [id number], Questions: . THIS IS NOT INSURANCE.] aspirin 81 mg tablet RxNorm: 133265 1 Tablet(s) PO daily No Start Date Active metoprolol succinate ER 50 mg tablet,extended release 24 hr RxNorm: 351581 1 Tablet(s) PO daily No Start Date [...] Pelvic and perineal pain ICD-10: R10.2 ICD-9: [id number] 03/16/2016 Pain in left finger(s) ICD-10: M79.645 [...] 33.4 pg 03/16/2016 Cbc With Differential Ord2 Cecil% 7.7 % 03/16/2016 Cbc With Differential Ord2 MCHC 32.9 pg 03/16/2016 Cbc With Differential Ord2 Eos% 0.2 % 03/16/2016 Cbc With Differential Ord2 PLT 242 K/ul 03/16/2016 Cbc With Differential Ord2 Baso% 0.2 % 03/16/2016 Cbc With Differential Ord2 RDW 13.6 % 03/16/2016 Cbc With Differential Ord2 Neut ABS# 8.81 K/ul 03/16/2016 Cbc With Differential Ord2 Lymph ABS# 3.03 K/ul 03/16/2016 Cbc With Differential Ord2 Cecil ABS# 1.0 K/ul 03/16/2016 Cbc With Differential Ord2 Eos ABS# 0.0 K/ul 03/16/2016 Cbc With Differential Ord2 Baso ABS# 0.0 K/ul 03/16/2016 Comp Metabolic Ysy154 NA 138 mEq/L 03/16/2016 Comp Metabolic Iui930 K 4.0 mEq/L 03/16/2016 Comp Metabolic Mkv713 CL 106 mEq/L 03/16/2016 Comp Metabolic Hni488 CO2 25.0 mEq/L 03/16/2016 Comp Metabolic Hgw512 ANION GAP 11 03/16/2016 Comp Metabolic Knt268 GLUCOSE 91 mg/dL 03/16/2016 Comp Metabolic Hve907 Creat 0.7 mg/dL 03/16/2016 Comp Metabolic Wsg534 eGFR 92 ml/min/1.73m2 03/16/2016 Comp Metabolic Tsc621 BUN 17 mg/dL 03/16/2016 Comp Metabolic Afw438 B/C Ratio 24.3 Ratio 03/16/2016 Comp Metabolic Qri233 CALCIUM 9.1 mg/dL 03/16/2016 Comp Metabolic Deu165 ALK PHOS 80 U/L 03/16/2016 Comp Metabolic Uzu492 AST(SGOT) 18 U/L 03/16/2016 Comp Metabolic Akg079 ALT(SGPT) 29 U/L 03/16/2016 Comp Metabolic Nwg432 BILI T 0.4 mg/dL 03/16/2016 Comp Metabolic Arg226 ALBUMIN 4.2 g/dL 03/16/2016 Comp Metabolic Rlo209 TPRO 6.4 g/dL 03/16/2016 Comp Metabolic Usi314 GLOB 2.2 g/dL 03/16/2016 Comp Metabolic Meb707 A/G Ratio 1.9 Ratio 03/16/2016 Comp Metabolic Hub726 Osmo 277 mOsmo 03/16/2016 Tsh Ord6 hTSH II 1.76 uIU/mL 07/04/2015 Comp Metabolic Wju653 NA 138 mEq/L 07/04/2015 Comp Metabolic Usg626 K 4.1 mEq/L 07/04/2015 Comp Metabolic Ydb093 CL 103 mEq/L 07/04/2015 Comp Metabolic Bvh744 CO2 24.0 mEq/L 07/04/2015 Comp Metabolic Wsj194 ANION GAP 15 07/04/2015 Comp Metabolic Msh682 GLUCOSE 78 mg/dL 07/04/2015 Comp Metabolic Auz767 Creat 0.8 mg/dL 07/04/2015 Comp Metabolic Wwz129 eGFR 83 ml/min/1.73m2 07/04/2015 Comp Metabolic Rcm568 BUN 16 mg/dL 07/04/2015 Comp Metabolic Hup835 B/C Ratio 20.8 Ratio 07/04/2015 Comp Metabolic Joy919 CALCIUM 9.2 mg/dL 07/04/2015 Comp Metabolic Gpp021 ALK PHOS 70 U/L 07/04/2015 Comp Metabolic Ddy778 AST(SGOT) 23 U/L 07/04/2015 Comp Metabolic Ykv797 ALT(SGPT) 29 U/L 07/04/2015 Comp Metabolic Umc866 BILI T 0.3 mg/dL 07/04/2015 Comp Metabolic Whg556 ALBUMIN 4.0 g/dL 07/04/2015 Comp Metabolic Vth302 TPRO 6.1 g/dL 07/04/2015 Comp Metabolic Lfi365 GLOB 2.1 g/dL 07/04/2015 Comp Metabolic Xkh855 A/G Ratio 1.9 Ratio 07/04/2015 Comp Metabolic Buj540 Osmo 276 mOsmo 07/04/2015 Cbc With Differential Ord2 WBC 8.94 K/ul 07/04/2015 Cbc With Differential Ord2 RBC 4.14 M/ul 07/04/2015 Cbc With Differential Ord2 HGB 13.6 g/dl 07/04/2015 Cbc With Differential Ord2 Neut% 53.4 % 07/04/2015 Cbc With Differential Ord2 HCT 43.2 % 07/04/2015 Cbc With Differential Ord2 MCV 104.3 fl 07/04/2015 Cbc With Differential Ord2 Lymph% 36.7 % 07/04/2015 Cbc With Differential Ord2 MCH 32.9 pg 07/04/2015 Cbc With Differential Ord2 Cecil% 8.2 % 07/04/2015 Cbc With Differential Ord2 MCHC 31.5 pg 07/04/2015 Cbc With Differential Ord2 Eos% 1.3 % 07/04/2015 Cbc With Differential Ord2 PLT 225 K/ul 07/04/2015 Cbc With Differential Ord2 Baso% 0.4 % 07/04/2015 Cbc With Differential Ord2 RDW 14.9 % 07/04/2015 Cbc With Differential Ord2 Neut ABS# 4.77 K/ul 07/04/2015 Cbc With Differential Ord2 Lymph ABS# 3.28 K/ul 07/04/2015 Cbc With Differential Ord2 Cecil ABS# 0.7 K/ul 07/04/2015 Cbc With Differential [...] Code : 8480-6 BMI: 24.5 Code : 50769-3 Heart Rate 1 : 80 bpm Height: 5'2" SpO2: 98% Weight: 134 lbs 07/22/2016 Blood Pressure 1: 136/74 Code : 8480-6 BMI: 24.5 Code : 98883-5 Heart Rate 1 : 78 bpm Height: 5'2" SpO2: 98% Weight: 134 lbs 03/25/2016 Blood Pressure 1: 128/86 Code : 8480-6 BMI: 24.5 Code : 80537-5 Heart Rate 1 : 89 bpm Height: 5'2" SpO2: 96% Weight: 134 lbs 03/16/2016 Blood Pressure 1: 152/92 Code : 8480-6 BMI: 24.5 Code : 29254-1 Heart Rate 1 : 85 bpm Height: 5'2" SpO2: 99% Weight: 134 lbs 09/11/2015 Blood Pressure 1: 138/80 Code : 8480-6 08/13/2015 Blood Pressure 1: 160/90 Code : 8480-6 Blood Pressure 1: 164/98 Code: 8480-6 BMI: 24.9 Code: 88416-7 Heart Rate 1: 112 bpm Height: 5'2" SpO2: 97% Weight: 136 lbs 07/03/2015 Blood Pressure 1: 120/70 Code : 8480-6 BMI: 25.1 Code : 51660-1 Heart Rate 1 : 87 bpm Height: 5'2" SpO2: 96% Weight: 137 lbs 09/27/2014 Blood Pressure 1: 130/72 Code : 8480-6 BMI: 25.4 Code : 40581-7 Heart Rate 1 : 92 bpm Height: [...] data Encounters Encounter Performer Location Codes Date 85539 EST. PATIENT, LEVEL III Diagnosis: Dysuria[ICD10: R30.0] Diagnosis: Essential (primary) hypertension[ICD10: I10] [facility] CPT-4: 60062 12/28/2017 ([id number]) 37890 EST. PATIENT, LEVEL III Diagnosis: Essential (primary) hypertension[ICD10: I10] Diagnosis: Generalized anxiety disorder[ICD10: F41.1] Vale Costello MD, [facility] CPT-4: 69022 07/22/2016 ([id number]) 86251 EST. PATIENT, LEVEL IV Diagnosis: Gastro-esophageal reflux disease with esophagitis[ICD10: K21.0] Diagnosis: Essential (primary) hypertension[ICD10: I10] Diagnosis: Low back pain[ICD10: M54.5] Vale Costello MD, [facility] CPT-4: 26643 03/25/2016 56963 EST. PATIENT, LEVEL IV Diagnosis: Pelvic and perineal pain[ICD10: R10.2] Marisa Costello MD, [facility] CPT-4: 08275 03/16/2016 ([id number]) Miscellaneous no charge Diagnosis: Essential (primary) hypertension[ICD10: I10] Marisa Costello MD, [facility] CPT-4: 68193 09/11/2015 58624 EST. PATIENT, LEVEL III Diagnosis: Pain in left finger(s)[ICD10: M79.645] Diagnosis: Paresthesia of skin[ICD10: R20.2] Diagnosis: Essential (primary) hypertension[ICD10: I10] Marisa Costello MD, [facility] CPT-4: 46324 08/13/2015 ([id number]) 54206 EST. PATIENT, LEVEL III Diagnosis: Migraine, unspecified, not intractable, without status migrainosus[ ICD10: G43.909] Diagnosis: Other hypertrophic disorders of the skin[ICD10: L91.8] Vale Costello MD, [facility] CPT-4: 93873 07/03/2015 ([id number]) PREV VISIT NEW AGE 40-64 Diagnosis: Well adult exam[ICD9: V70.0] Vale Costello MD, [facility] CPT-4: 36717 09/27/2014 Plan of Care Planned Activity Notes [...] home. 12/28/2017 Appointment: Marisa Wilcox WPtel: [phone] [facility] (15 min) Moderate 12/28/2017 Patient Education: Patient [...] Appointment: Vale Youngblood WPtel: [facility]2 [phone] (30 [...] Appointment: Vale Youngblood WPtel: [facility]8 [phone] (15 [...] concerns. 03/16/2016 Appointment: [facility] Youngblood [phone] [phone] [place] (15 min) Moderate 03/16/2016 Patient Education: [...] Care Plan[facility] Ordered 09/27/2014 Instructions Comment . Well Adult [...]
--- OUTSIDE RECORDS SUMMARY | 2018-07-09 09:12 | XMS REPORT | Continuity of Care Document ---
Author Author [facility] Organization [facility] Address Unknown Phone Unavailable Allergies Active Description Code Type Severity Reaction Onset Reported/Identified Relationship to Patient Clinical Status Yes No Known Drug Allergies [id number] Drug Allergy Unknown N/A 07/09/2011 Medications There is no data. Problems Date Dx Coded Attending Type Code Diagnosis Diagnosed By 07/09/2011 Ot 553.3 DIAPHRAGMATIC HERNIA 07/09/2011 Ot 787.3 FLATUL/ ERUCTAT/GAS PAIN 07/09/2011 Ot 789.06 ABDOMINAL PAIN, EPIGASTRIC 01/16/2014 SHIRLEY LIZ, ABISAI Condon Ot 717.7 CHONDROMALACIA PATELLAE 01/16/2014 SHIRLEY LIZ, ABISAI Condon Ot 836.1 TEAR LAT MENISC KNEE-CUR 01/16/2014 SHIRLEY LIZ, ABISAI Condon Ot E000.8 OTHER EXTERNAL CAUSE STATUS 01/16/2014 SHIRLEY LIZ, ABISAI Condon Ot E917.9 STRUCK BY OBJ/PERSON NEC 01/16/2014 SHIRLEY LIZ, ABISAI Condon Ot V57.1 PHYSICAL THERAPY NEC 05/17/2014 Ot 786.2 05/17/2014 Ot 611.71 05/17/2014 Ot 789.00 05/17/2014 Ot V72.84 05/17/2014 Ot 305.1 05/17/2014 Ot 782.3 05/17/2014 Ot 787.02 05/17/2014 Ot 787.3 05/17/2014 Ot V76.12 05/17/2014 CASSIE LIZ, AUSTIN Rosado Ot 784.0 05/17/2014 SHIRLEY LIZ, ABISAI Condon Ot 717.40 05/17/2014 SHIRLEY LIZ, ABISAI Condon Ot V72.83 05/17/2014 ABISAI WATSON MD Ot V74.8 05/20/2014 Ot 786.2 05/20/2014 Ot 611.71 05/20/2014 Ot 789.00 05/20/2014 Ot V72.84 05/20/2014 Ot 305.1 05/20/2014 Ot 782.3 05/20/2014 Ot 787.02 05/20/2014 Ot 787.3 05/20/2014 Ot V76.12 05/20/2014 CASSIE LIZ, AUSTIN Rosado Ot 784.0 05/20/2014 SHIRLEY LIZ, ABISAI Condon Ot 717.40 05/20/2014 ABISAI WATSON MD Ot V72.83 05/20/2014 SHIRLEY LIZ, ABISAI Condon Ot V74.8 08/14/2015 CHRIS SUAZO EXECUTIVE VICE PRESIDENT OF SALES Ot I10 08/14/2015 CHRIS SUAZO EXECUTIVE VICE PRESIDENT OF SALES Ot R06.02 08/14/2015 CHRIS SUAZO EXECUTIVE VICE PRESIDENT OF SALES Ot R20.2 08/19/2015 CHRIS SUAZO EXECUTIVE VICE PRESIDENT OF SALES Ot I10 08/19/2015 CHRIS SUAZO EXECUTIVE VICE PRESIDENT OF SALES Ot R06.02 08/19/2015 CHRIS SUAZO EXECUTIVE VICE PRESIDENT OF SALES Ot R20.2 09/17/2015 CHRIS SUAZO EXECUTIVE VICE PRESIDENT OF SALES Ot I10 ESSENTIAL (PRIMARY) HYPERTENSION 09/17/2015 CHRIS SUAZO EXECUTIVE VICE PRESIDENT OF SALES Ot R06.02 SHORTNESS OF BREATH 09/17/2015 CHRIS SUAZO EXECUTIVE VICE PRESIDENT OF SALES Ot R20.2 PARESTHESIA OF SKIN 03/18/2016 Ot 786.2 COUGH 03/18/2016 Ot 611.71 MASTODYNIA 03/18/2016 Ot 789.00 ABDOMINAL PAIN, UNSPECIFIED SITE 03/18/2016 Ot V72.84 EXAM PRE- OPERATIVE NOS 03/18/2016 Ot 305.1 TOBACCO USE DISORDER 03/18/2016 Ot 782.3 EDEMA 03/18/2016 Ot 787.02 NAUSEA ALONE 03/18/2016 Ot 787.3 FLATUL/ ERUCTAT/GAS PAIN 03/18/2016 Ot V76.12 OTH SCREEN MAMMO-MALIGN NEOPLASM OF EARL 03/18/2016 CASSIE LIZ, AUSTIN Rosado Ot 784.0 HEADACHE 03/18/2016 SHIRLEY LIZ, ABISAI Condon Ot 717.40 DERANG LAT MENISCUS NOS 03/18/2016 SHIRLEY LIZ, ABISAI Condon Ot V72.83 EXAM PRE-OPERATIVE NEC 03/18/2016 SHIRLEY LIZ, ABISAI Condon Ot V74.8 SCREEN-BACTERIAL DIS NEC 03/18/2016 SANDAUSTIN KUNZ MD Ot V76.12 OTH SCREEN MAMMO-MALIGN NEOPLASM OF [place]AR[place] 03/18/2016 CHRIS SUAZO EXECUTIVE VICE PRESIDENT OF SALES Ot I10 ESSENTIAL (PRIMARY) HYPERTENSION 03/18/2016 CHRIS SUAZO EXECUTIVE VICE PRESIDENT OF SALES Ot R06.02 SHORTNESS OF BREATH 03/18/2016 CHRIS SUAZO EXECUTIVE VICE PRESIDENT OF SALES Ot R20.2 PARESTHESIA OF SKIN 03/19/2016 JUVENAL OREILLY MD Ot F17.210 NICOTINE DEPENDENCE, CIGARETTES, UNCOMPL 03/19/2016 JUVENAL OREILLY MD Ot I34.1 NONRHEUMATIC MITRAL (VALVE) PROLAPSE 03/19/2016 JUVENAL OREILLY MD Ot M51.37 OTHER INTERVERTEBRAL DISC DEGENERATION, 03/19/2016 JUVENAL OREILLY MD Ot R11.0 NAUSEA 03/19/2016 JUVENAL OERILLY MD Ot F17.210 NICOTINE DEPENDENCE, CIGARETTES, UNCOMPL 03/19/2016 JUVENAL OREILLY MD Ot I34.1 NONRHEUMATIC MITRAL (VALVE) PROLAPSE 03/19/2016 JUVENAL OREILLY MD Ot M51.37 OTHER INTERVERTEBRAL DISC DEGENERATION, 03/19/2016 JUVENAL OERILLY MD Ot R11.0 NAUSEA 03/25/2016 Ot 786.2 COUGH 03/25/2016 Ot 611.71 MASTODYNIA 03/25/2016 Ot 789.00 ABDOMINAL PAIN, UNSPECIFIED SITE 03/25/2016 Ot V72.84 EXAM PRE- OPERATIVE NOS 03/25/2016 Ot 305.1 TOBACCO USE DISORDER 03/25/2016 Ot 782.3 EDEMA 03/25/2016 Ot 787.02 NAUSEA ALONE 03/25/2016 Ot 787.3 FLATUL/ ERUCTAT/GAS PAIN 03/25/2016 Ot V76.12 OTH SCREEN MAMMO-MALIGN NEOPLASM OF EARL 03/25/2016 AUSTIN MATTHEWS MD Ot 784.0 HEADACHE 03/25/2016 SHIRLEY LIZ, ABISAI Condon Ot 717.40 DERANG LAT MENISCUS NOS 03/25/2016 SHIRLEY LIZ, ABISAI Condon Ot V72.83 EXAM PRE-OPERATIVE NEC 03/25/2016 SHIRLEY LIZ, ABISAI Condon Ot V74.8 SCREEN-BACTERIAL DIS NEC 03/25/2016 AUSTIN MATTHEWS MD Ot V76.12 OTH SCREEN MAMMO-MALIGN NEOPLASM OF [place]ARL 03/25/2016 CHRIS SUAZO EXECUTIVE VICE PRESIDENT OF SALES Ot I10 ESSENTIAL (PRIMARY) HYPERTENSION 03/25/2016 CHRIS SUAZO EXECUTIVE VICE PRESIDENT OF SALES Ot R06.02 SHORTNESS OF BREATH 03/25/2016 CHRIS SUAZO EXECUTIVE VICE PRESIDENT OF SALES Ot R20.2 PARESTHESIA OF SKIN 03/26/2016 BUCHANANJADA ELECTRIC TRIPPER MACHINE OPERATOR Ot R07.9 CHEST PAIN, UNSPECIFIED 03/31/2016 JUVENAL OREILLY MD Ot F17.210 NICOTINE DEPENDENCE, CIGARETTES, UNCOMPL 03/31/2016 JUVENAL OREILLY MD Ot I10 ESSENTIAL (PRIMARY) HYPERTENSION 03/31/2016 JUVENAL OREILLY MD Ot I25.10 ATHSCL HEART DISEASE OF [place] CORONARY 03/31/2016 JUVENAL OREILLY MD Ot K22.70 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 03/31/2016 JUVENAL OREILLY MD Ot K25.9 GASTRIC ULCER, UNSP ACUTE OR CHRONIC, 03/31/2016 JUVENAL OREILLY MD Ot K29.70 GASTRITIS, UNSPECIFIED, WITHOUT BLEEDING 03/31/2016 JUVENAL OREILLY MD Ot K31.7 POLYP OF STOMACH AND DUODENUM 03/31/2016 JUVENAL OREILLY MD Ot K44.9 DIAPHRAGMATIC HERNIA WITHOUT OBSTRUCTION 04/06/2016 JUVENAL OREILLY MD Ot F17.210 NICOTINE DEPENDENCE, CIGARETTES, UNCOMPL 04/06/2016 JUVENAL OREILLY MD Ot I10 ESSENTIAL (PRIMARY) HYPERTENSION 04/06/2016 JUVENAL OREILLY MD Ot I25.10 ATHSCL HEART DISEASE OF [place] CORONARY 04/06/2016 JUVENAL OREILLY MD Ot K22.70 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 04/06/2016 JUVENAL OREILLY MD Ot K25.9 GASTRIC ULCER, UNSP ACUTE OR CHRONIC, 04/06/2016 JUVENAL OREILLY MD Ot K29.70 GASTRITIS, UNSPECIFIED, WITHOUT BLEEDING 04/06/2016 JUVENAL OREILLY MD Ot K31.7 POLYP OF STOMACH AND DUODENUM 04/06/2016 JUVENAL OREILLY MD Ot K44.9 DIAPHRAGMATIC HERNIA WITHOUT OBSTRUCTION 04/22/2016 JUVENAL OREILLY MD Ot F17.210 NICOTINE DEPENDENCE, CIGARETTES, UNCOMPL 04/22/2016 JUVENAL OREILLY MD Ot I10 ESSENTIAL (PRIMARY) HYPERTENSION 04/22/2016 JUVENAL OREILLY MD Ot I25.10 ATHSCL HEART DISEASE OF [place] CORONARY 04/22/2016 JUVENAL OREILLY MD Ot K22.70 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 04/22/2016 JUVENAL OREILLY MD Ot K25.9 GASTRIC ULCER, UNSP ACUTE OR CHRONIC, 04/22/2016 JUVENAL OREILLY MD Ot K29.70 GASTRITIS, UNSPECIFIED, WITHOUT BLEEDING 04/22/2016 JUVENAL OREILLY MD Ot K31.7 POLYP OF STOMACH AND DUODENUM 04/22/2016 JUVENAL OREILLY MD Ot K44.9 DIAPHRAGMATIC HERNIA WITHOUT OBSTRUCTION 07/22/2016 Ot 786.2 COUGH 07/22/2016 Ot 611.71 MASTODYNIA 07/22/2016 Ot 789.00 ABDOMINAL PAIN, UNSPECIFIED SITE 07/22/2016 Ot V72.84 EXAM PRE- OPERATIVE NOS 07/22/2016 Ot 305.1 TOBACCO USE DISORDER 07/22/2016 Ot 782.3 EDEMA 07/22/2016 Ot 787.02 NAUSEA ALONE 07/22/2016 Ot 787.3 FLATUL/ ERUCTAT/GAS PAIN 07/22/2016 Ot V76.12 OTH SCREEN MAMMO-MALIGN NEOPLASM OF EARL 07/22/2016 CASSIE LIZ, AUSTIN Rosado Ot 784.0 HEADACHE 07/22/2016 SHIRLEY LIZ, ABISAI Condon Ot 717.40 DERANG LAT MENISCUS NOS 07/22/2016 SHIRLEY LIZ, ABISAI Condon Ot V72.83 EXAM PRE-OPERATIVE NEC 07/22/2016 SHIRLEY LIZ, ABISAI Condon Ot V74.8 SCREEN-BACTERIAL DIS NEC 07/22/2016 CASSIE LIZ, AUSTIN Rosado Ot V76.12 OTH SCREEN MAMMO-MALIGN NEOPLASM OF [place]AR[place] 07/22/2016 CHRIS SUAZO EXECUTIVE VICE PRESIDENT OF SALES Ot I10 ESSENTIAL (PRIMARY) HYPERTENSION 07/22/2016 CHRIS SUAZO EXECUTIVE VICE PRESIDENT OF SALES Ot R06.02 SHORTNESS OF BREATH 07/22/2016 CHRIS SUAZO EXECUTIVE VICE PRESIDENT OF SALES Ot R20.2 PARESTHESIA OF SKIN 07/22/2016 JADA BUCHANANP Ot R07.9 CHEST PAIN, UNSPECIFIED 07/23/2016 AMIRA MIMSP Ot I10 ESSENTIAL (PRIMARY) HYPERTENSION 07/23/2016 BAIMA, AMIRA L ELECTRIC TRIPPER MACHINE OPERATOR Ot I25.10 ATHSCL HEART DISEASE OF [place] CORONARY 07/23/2016 BAIAMIRA NORTON L ELECTRIC TRIPPER MACHINE OPERATOR Ot I34.1 NONRHEUMATIC MITRAL (VALVE) PROLAPSE 07/23/2016 BAIMAAMIRA L ELECTRIC TRIPPER MACHINE OPERATOR Ot R00.2 PALPITATIONS 07/23/2016 BAIMAAMIRA L ELECTRIC TRIPPER MACHINE OPERATOR Ot I10 ESSENTIAL (PRIMARY) HYPERTENSION 07/23/2016 BAIMAAMIRA L ELECTRIC TRIPPER MACHINE OPERATOR Ot I25.10 ATHSCL HEART DISEASE OF [place] CORONARY 07/23/2016 BAIAMIRA NORTON L ELECTRIC TRIPPER MACHINE OPERATOR Ot I34.1 NONRHEUMATIC MITRAL (VALVE) PROLAPSE 07/23/2016 BAIAMIRA NORTON L ELECTRIC TRIPPER MACHINE OPERATOR Ot R00.2 PALPITATIONS 09/03/2016 BAIAMIRA NORTON L ELECTRIC TRIPPER MACHINE OPERATOR Ot I10 ESSENTIAL (PRIMARY) HYPERTENSION 09/03/2016 AMIRA MIMS L ELECTRIC TRIPPER MACHINE OPERATOR Ot I25.10 ATHSCL HEART DISEASE OF [place] CORONARY 09/03/2016 BAIAMIRA NORTON L ELECTRIC TRIPPER MACHINE OPERATOR Ot I34.1 NONRHEUMATIC MITRAL (VALVE) PROLAPSE 09/03/2016 BAIAMIRA NORTON ELECTRIC TRIPPER MACHINE OPERATOR Ot R00.2 PALPITATIONS 09/24/2016 MIR LIZ, HANK Venegas Ot M51.16 INTERVERTEBRAL DISC DISORDERS W RADICULO 09/29/2016 MIR LIZ, HANK Venegas Ot M51.16 INTERVERTEBRAL DISC DISORDERS W RADICULO 10/26/2016 Ot 786.2 COUGH 10/26/2016 Ot 611.71 MASTODYNIA 10/26/2016 Ot 789.00 ABDOMINAL PAIN, UNSPECIFIED SITE 10/26/2016 Ot V72.84 EXAM PRE- OPERATIVE NOS 10/26/2016 Ot 305.1 TOBACCO USE DISORDER 10/26/2016 Ot 782.3 EDEMA 10/26/2016 Ot 787.02 NAUSEA ALONE 10/26/2016 Ot 787.3 FLATUL/ ERUCTAT/GAS PAIN 10/26/2016 Ot V76.12 OTH SCREEN MAMMO-MALIGN NEOPLASM OF [place]AR[place] 10/26/2016 CASSIE LIZ, AUSTIN Rosado Ot 784.0 HEADACHE 10/26/2016 SHIRLEY LIZ, ABISAI Condon Ot 717.40 DERANG LAT MENISCUS NOS 10/26/2016 SHIRLEY LIZ, ABISAI Condon Ot V72.83 EXAM PRE-OPERATIVE NEC 10/26/2016 SHIRLEY LIZ, ABISAI Condon Ot V74.8 SCREEN-BACTERIAL DIS NEC 10/26/2016 CASSIE LIZ, AUSTIN Rosado Ot V76.12 OTH SCREEN MAMMO-MALIGN NEOPLASM OF [place] 10/26/2016 CHRIS SUAZO EXECUTIVE VICE PRESIDENT OF SALES Ot I10 ESSENTIAL (PRIMARY) HYPERTENSION 10/26/2016 CHRIS SUAZO EXECUTIVE VICE PRESIDENT OF SALES Ot R06.02 SHORTNESS OF BREATH 10/26/2016 CHRIS SUAZO EXECUTIVE VICE PRESIDENT OF SALES Ot R20.2 PARESTHESIA OF SKIN 10/26/2016 JADA BUCHANAN ELECTRIC TRIPPER MACHINE OPERATOR Ot R07.9 CHEST PAIN, UNSPECIFIED 10/26/2016 AMIRA MIMS ELECTRIC TRIPPER MACHINE OPERATOR Ot I10 ESSENTIAL (PRIMARY) HYPERTENSION 10/26/2016 AMIRA MIMS ELECTRIC TRIPPER MACHINE OPERATOR Ot I25.10 ATHSCL HEART DISEASE OF [place] CORONARY 10/26/2016 AMIRA MIMS ELECTRIC TRIPPER MACHINE OPERATOR Ot I34.1 NONRHEUMATIC MITRAL (VALVE) PROLAPSE 10/26/2016 AMIRA MIMS ELECTRIC TRIPPER MACHINE OPERATOR Ot R00.2 PALPITATIONS 12/07/2016 MIR LIZ, HANK Venegas Ot M51.16 INTERVERTEBRAL DISC DISORDERS W RADICULO 04/04/2017 DENILSON LIZ, JUVENAL Case Ot Z12.31 ENCNTR SCREEN MAMMOGRAM FOR MALIGNANT NE 06/06/2017 BEKA LEVY DO Ot K22.70 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 06/06/2017 BEKA LEVY DO Ot Z01.818 ENCOUNTER FOR OTHER PREPROCEDURAL EXAMIN 06/07/2017 BEKA LEVY DO Ot F17.210 NICOTINE DEPENDENCE, CIGARETTES, UNCOMPL 06/07/2017 BEKA LEVY DO Ot I10 ESSENTIAL (PRIMARY) HYPERTENSION 06/07/2017 BEKA LEVY DO Ot I25.10 ATHSCL HEART DISEASE OF [place] CORONARY 06/07/2017 BEKA LEVY DO Ot I48.0 PAROXYSMAL ATRIAL FIBRILLATION 06/07/2017 BEKA LEVY DO Ot K21.9 GASTRO-ESOPHAGEAL REFLUX DISEASE WITHOUT 06/07/2017 BEKA LEVY DO Ot K22.70 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 06/07/2017 BEKA LEVY DO Ot K44.9 DIAPHRAGMATIC HERNIA WITHOUT OBSTRUCTION 06/07/2017 BEKA LEVY DO Ot Z79.82 COMMAND CENTER OFFICER (CURRENT) USE OF ASPIRIN 06/07/2017 BEKA LEVY DO Ot Z79.899 OTHER COMMAND CENTER OFFICER (CURRENT) DRUG THERAPY 06/07/2017 BEKA LEVY DO Ot K22.70 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 06/07/2017 BEKA LEVY DO Ot Z01.818 ENCOUNTER FOR OTHER PREPROCEDURAL EXAMIN 06/08/2017 BEKA LEVY DO Ot F17.210 NICOTINE DEPENDENCE, CIGARETTES, UNCOMPL 06/08/2017 BEKA LEVY DO Ot I10 ESSENTIAL (PRIMARY) HYPERTENSION 06/08/2017 BEKA LEVY DO Ot I25.10 ATHSCL HEART DISEASE OF [place] CORONARY 06/08/2017 BEKA LEVY DO Ot I48.0 PAROXYSMAL ATRIAL FIBRILLATION 06/08/2017 BEKA LEVY DO Ot K21.9 GASTRO-ESOPHAGEAL REFLUX DISEASE WITHOUT 06/08/2017 BEKA LEVY DO Ot K22.70 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 06/08/2017 BEKA LEVY DO Ot K44.9 DIAPHRAGMATIC HERNIA WITHOUT OBSTRUCTION 06/08/2017 BEKA LEVY DO Ot Z79.82 CUSTODIAL (CURRENT) USE OF ASPIRIN 06/08/2017 BEKA LEVY DO Ot Z79.899 OTHER CUSTODIAL (CURRENT) DRUG THERAPY 06/06/2018 BEKA LEVY DO Ot R10.13 EPIGASTRIC PAIN 06/15/2018 SHIRLEY LIZ, ABISAI Condon Ot 717.40 DERANG LAT MENISCUS NOS 06/15/2018 SHIRLEY LIZ, ABISAI Condon Ot V72.83 EXAM PRE-OPERATIVE NEC 06/15/2018 ABISAI WATSON MD Ot V74.8 SCREEN-BACTERIAL DIS NEC 06/15/2018 AUSTIN MATTHEWS MD Ot V76.12 OTH SCREEN MAMMO-MALIGN NEOPLASM OF [place] 06/15/2018 CHRIS SUAZO EXECUTIVE VICE PRESIDENT OF SALES Ot I10 ESSENTIAL (PRIMARY) HYPERTENSION 06/15/2018 CHRIS SUAZO APRN Ot R06.02 SHORTNESS OF BREATH 06/15/2018 CHRIS SUAZO APRN Ot R20.2 PARESTHESIA OF SKIN 06/15/2018 JADA BUCHANANP Ot R07.9 CHEST PAIN, UNSPECIFIED 06/15/2018 BAIMA, AMIRA L ELECTRIC TRIPPER MACHINE OPERATOR Ot I10 ESSENTIAL (PRIMARY) HYPERTENSION 06/15/2018 AMIRA MIMS ELECTRIC TRIPPER MACHINE OPERATOR Ot I25.10 ATHSCL HEART DISEASE OF [place] CORONARY 06/15/2018 AMIRA MIMS ELECTRIC TRIPPER MACHINE OPERATOR Ot I34.1 NONRHEUMATIC MITRAL (VALVE) PROLAPSE 06/15/2018 AMIRA MIMS ELECTRIC TRIPPER MACHINE OPERATOR Ot R00.2 PALPITATIONS 06/15/2018 DENILSON LIZ, JUVENAL Case Ot Z12.31 ENCNTR SCREEN MAMMOGRAM FOR MALIGNANT NE 06/15/2018 LEVY DO, BEKA D Ot R10.13 EPIGASTRIC PAIN 06/19/2018 LEVY DO, BEKA D Ot R10.13 EPIGASTRIC PAIN 06/21/2018 LEVY DO, BEKA D Ot R10.13 EPIGASTRIC PAIN 06/30/2018 LEVY DO, BEKA D Ot R10.13 EPIGASTRIC PAIN 07/04/2018 LEVY DO, BEKA D Ot Z01.818 ENCOUNTER FOR OTHER PREPROCEDURAL EXAMIN 07/06/2018 PERTH AMBOY DO, BEKA D Ot Z01.818 ENCOUNTER FOR OTHER PREPROCEDURAL EXAMIN 07/07/2018 LEVY DO, BEKA D Ot Z01.818 ENCOUNTER FOR OTHER PREPROCEDURAL EXAMIN Procedures There is no data. Results Test Result Range Complete blood count (CBC) with automated white blood cell (WBC) differential - 03/18/16 13:50 Blood leukocytes automated count (number/volume) 14.0 10*3/uL 4.3-11.0 Blood erythrocytes automated count (number/volume) 4.38 10*6/uL 4.35-5.85 Venous blood hemoglobin measurement (mass/volume) 14.4 g/dL 11.5-16.0 Blood hematocrit (volume fraction) 43 % 35-52 Automated erythrocyte mean corpuscular volume 97 [foz_us] 80-99 Automated erythrocyte mean corpuscular hemoglobin (mass per erythrocyte) 33 pg 25-34 Automated erythrocyte mean corpuscular hemoglobin concentration measurement ( mass/volume) 34 g/dL 32-36 Automated erythrocyte distribution width ratio 12.9 % 10.0-14.5 Automated blood platelet count (count/volume) 242 10*3/uL 130-400 Automated blood platelet mean volume measurement 10.3 [foz_us] 7.4-10.4 Automated blood neutrophils/100 leukocytes 73 % 42-75 Automated blood lymphocytes/100 leukocytes 17 % 12-44 Blood monocytes/100 leukocytes 9 % 0-12 Automated blood eosinophils/100 leukocytes 0 % 0-10 Automated blood basophils/100 leukocytes 0 % 0-10 Blood neutrophils automated count (number/volume) 10.2 10*3 1.8-7.8 Blood lymphocytes automated count (number/volume) 2.4 10*3 1.0-4.0 Blood monocytes automated count (number/volume) 1.3 10*3 0.0-1.0 Automated eosinophil count 0.0 10*3/uL 0.0-0.3 Automated blood basophil count (count/volume) 0.0 10*3/uL 0.0-0.1 Comprehensive metabolic panel - 03/18/16 13:50 Serum or plasma sodium measurement (moles/volume) 139 mmol/L 135-145 Serum or plasma potassium measurement (moles/volume) 3.9 mmol/L 3.6-5.0 Serum or plasma chloride measurement (moles/volume) 103 mmol/L 98-107 Carbon dioxide 22 mmol/L 21-32 Serum or plasma anion gap determination (moles/volume) 14 mmol/L 5-14 Serum or plasma urea nitrogen measurement (mass/volume) 13 mg/dL 7-18 Serum or plasma creatinine measurement (mass/volume) 0.73 mg/dL 0.60-1.30 Serum or plasma urea nitrogen/creatinine mass ratio 18 NRG Serum or plasma creatinine measurement with calculation of estimated glomerular filtration rate > NRG Serum or plasma glucose measurement (mass/volume) 89 mg/dL 70-105 Serum or plasma calcium measurement (mass/volume) 10.5 mg/dL 8.5-10.1 Serum or plasma total bilirubin measurement (mass/volume) 0.5 mg/dL 0.1-1.0 Serum or plasma alkaline phosphatase measurement (enzymatic activity/volume) 90 U/L 40-136 Serum or plasma aspartate aminotransferase measurement (enzymatic activity/ volume) 32 U/L 5-34 Serum or plasma alanine aminotransferase measurement (enzymatic activity/volume ) 56 U/L 0-55 Serum or plasma protein measurement (mass/volume) 7.4 g/dL 6.4-8.2 Serum or plasma albumin measurement (mass/volume) 4.5 g/dL 3.2-4.5 Blood manual differential performed detection - 03/18/16 13:50 Blood monocytes/100 leukocytes 7 % NRG Manual blood segmented neutrophils/100 leukocytes 77 % NRG Blood band neutrophils/100 leukocytes 1 % NRG Manual blood lymphocytes/100 leukocytes 15 % NRG Manual eosinophils/100 leukocytes in nose 0 % NRG Manual blood basophils/100 leukocytes 0 % NRG Blood erythrocyte morphology finding identification NORMAL NRG Complete blood count (CBC) with automated white blood cell (WBC) differential - 03/29/16 21:55 Blood leukocytes automated count (number/volume) 12.9 10*3/uL 4.3-11.0 Blood erythrocytes automated count (number/volume) 4.13 10*6/uL 4.35-5.85 Venous blood hemoglobin measurement (mass/volume) 13.7 g/dL 11.5-16.0 Blood hematocrit (volume fraction) 41 % 35-52 Automated erythrocyte mean corpuscular volume 98 [foz_us] 80-99 Automated erythrocyte mean corpuscular hemoglobin (mass per erythrocyte) 33 pg 25-34 Automated erythrocyte mean corpuscular hemoglobin concentration measurement ( mass/volume) 34 g/dL 32-36 Automated erythrocyte distribution width ratio 13.7 % 10.0-14.5 Automated blood platelet count (count/volume) 246 10*3/uL 130-400 Automated blood platelet mean volume measurement 9.6 [foz_us] 7.4-10.4 Automated blood neutrophils/100 leukocytes 68 % 42-75 Automated blood lymphocytes/100 leukocytes 21 % 12-44 Blood monocytes/100 leukocytes 11 % 0-12 Automated blood eosinophils/100 leukocytes 1 % 0-10 Automated blood basophils/100 leukocytes 0 % 0-10 Blood neutrophils automated count (number/volume) 8.8 10*3 1.8-7.8 Blood lymphocytes automated count (number/volume) 2.7 10*3 1.0-4.0 Blood monocytes automated count (number/volume) 1.4 10*3 0.0-1.0 Automated eosinophil count 0.1 10*3/uL 0.0-0.3 Automated blood basophil count (count/volume) 0.0 10*3/uL 0.0-0.1 Fibrin D-dimer FEU measurement in platelet poor plasma (mass/volume) - 21:55 Fibrin D-dimer FEU measurement in platelet poor plasma (mass/volume) < ug/mL 0.00-0.49 Comprehensive metabolic panel - 03/29/16 21:55 Serum or plasma sodium measurement (moles/volume) 143 mmol/L 135-145 Serum or plasma potassium measurement (moles/volume) 3.8 mmol/L 3.6-5.0 Serum or plasma chloride measurement (moles/volume) 110 mmol/L 98-107 Carbon dioxide 24 mmol/L 21-32 Serum or plasma anion gap determination (moles/volume) 9 mmol/L 5-14 Serum or plasma urea nitrogen measurement (mass/volume) 16 mg/dL 7-18 Serum or plasma creatinine measurement (mass/volume) 0.79 mg/dL 0.60-1.30 Serum or plasma urea nitrogen/creatinine mass ratio 20 NRG Serum or plasma creatinine measurement with calculation of estimated glomerular filtration rate > NRG Serum or plasma glucose measurement (mass/volume) 115 mg/dL 70-105 Serum or plasma calcium measurement (mass/volume) 8.6 mg/dL 8.5-10.1 Serum or plasma total bilirubin measurement (mass/volume) 0.4 mg/dL 0.1-1.0 Serum or plasma alkaline phosphatase measurement (enzymatic activity/volume) 66 U/L 40-136 Serum or plasma aspartate aminotransferase measurement (enzymatic activity/ volume) 23 U/L 5-34 Serum or plasma alanine aminotransferase measurement (enzymatic activity/volume ) 45 U/L 0-55 Serum or plasma protein measurement (mass/volume) 6.3 g/dL 6.4-8.2 Serum or plasma albumin measurement (mass/volume) 4.0 g/dL 3.2-4.5 Magnesium - 03/29/16 21:55 Magnesium 2.3 mg/dL 1.8-2.4 Serum or plasma troponin i.cardiac measurement (mass/volume) - 03/29/16 21:55 Serum or plasma troponin i.cardiac measurement (mass/volume) < ng/ mL <0.30 Lipase - 03/29/16 21:55 Lipase 75 U/L 8-78 Serum or plasma lithium measurement (moles/volume) - 03/29/16 21:55 BNP level 83.0 pg/mL <100.0 PT panel in platelet poor plasma by coagulation assay - 03/29/16 21:55 Prothrombin time (PT) in platelet poor plasma by coagulation assay 11.9 s 12.2-14.7 INR in platelet poor plasma or blood by coagulation assay 0.9 0.8-1.4 Activated partial thromboplastin time (aPTT) in platelet poor plasma bycoagulation assay - 03/29/16 21:55 Activated partial thromboplastin time (aPTT) in platelet poor plasma bycoagulation assay 22 s 24-35 Complete urinalysis with reflex to culture - 03/29/16 23:48 Urine color determination YELLOW NRG Urine clarity determination CLEAR NRG Urine pH measurement by test strip 6.5 5-9 Specific gravity of urine by test strip 1.015 1.016- 1.022 Urine protein assay by test strip, semi-quantitative NEGATIVE NEGATIVE Urine glucose detection by automated test strip NEGATIVE NEGATIVE Erythrocytes detection in urine sediment by light microscopy NEGATIVE NEGATIVE Urine ketones detection by automated test strip NEGATIVE NEGATIVE Urine nitrite detection by test strip NEGATIVE NEGATIVE Urine total bilirubin detection by test strip NEGATIVE NEGATIVE Urine urobilinogen measurement by automated test strip (mass/volume) NORMAL NORMAL Urine leukocyte esterase detection by dipstick 1+ NEGATIVE Automated urine sediment erythrocyte count by microscopy (number/high power field) NONE NRG Automated urine sediment leukocyte count by microscopy (number/high power field ) NONE NRG Bacteria detection in urine sediment by light microscopy NEGATIVE NRG Squamous epithelial cells detection in urine sediment by light microscopy RARE NRG Crystals detection in urine sediment by light microscopy NONE NRG Casts detection in urine sediment by light microscopy NONE NRG Mucus detection in urine sediment by light microscopy NEGATIVE NRG Complete urinalysis with reflex to culture NO NRG Activated partial thromboplastin time (aPTT) in platelet poor plasma bycoagulation assay - 03/30/16 05:53 Activated partial thromboplastin time (aPTT) in platelet poor plasma bycoagulation assay 152 s 24-35 Complete blood count (CBC) with automated white blood cell (WBC) differential - 03/30/16 05:53 Blood leukocytes automated count (number/volume) 11.2 10*3/uL 4.3-11.0 Blood erythrocytes automated count (number/volume) 3.63 10*6/uL 4.35-5.85 Venous blood hemoglobin measurement (mass/volume) 11.9 g/dL 11.5-16.0 Blood hematocrit (volume fraction) 36 % 35-52 Automated erythrocyte mean corpuscular volume 100 [foz_us] 80-99 Automated erythrocyte mean corpuscular hemoglobin (mass per erythrocyte) 33 pg 25-34 Automated erythrocyte mean corpuscular hemoglobin concentration measurement ( mass/volume) 33 g/dL 32-36 Automated erythrocyte distribution width ratio 14.0 % 10.0-14.5 Automated blood platelet count (count/volume) 228 10*3/uL 130-400 Automated blood platelet mean volume measurement 10.6 [foz_us] 7.4-10.4 Automated blood neutrophils/100 leukocytes 65 % 42-75 Automated blood lymphocytes/100 leukocytes 25 % 12-44 Blood monocytes/100 leukocytes 9 % 0-12 Automated blood eosinophils/100 leukocytes 1 % 0-10 Automated blood basophils/100 leukocytes 0 % 0-10 Blood neutrophils automated count (number/volume) 7.3 10*3 1.8-7.8 Blood lymphocytes automated count (number/volume) 2.8 10*3 1.0-4.0 Blood monocytes automated count (number/volume) 1.0 10*3 0.0-1.0 Automated eosinophil count 0.1 10*3/uL 0.0-0.3 Automated blood basophil count (count/volume) 0.0 10*3/uL 0.0-0.1 Comprehensive metabolic panel - 03/30/16 05:53 Serum or plasma sodium measurement (moles/volume) 139 mmol/L 135-145 Serum or plasma potassium measurement (moles/volume) 4.4 mmol/L 3.6-5.0 Serum or plasma chloride measurement (moles/volume) 111 mmol/L 98-107 Carbon dioxide 22 mmol/L 21-32 Serum or plasma anion gap determination (moles/volume) 6 mmol/L 5-14 Serum or plasma urea nitrogen measurement (mass/volume) 18 mg/dL 7-18 Serum or plasma creatinine measurement (mass/volume) 0.69 mg/dL 0.60-1.30 Serum or plasma urea nitrogen/creatinine mass ratio 26 NRG Serum or plasma creatinine measurement with calculation of estimated glomerular filtration rate > NRG Serum or plasma glucose measurement (mass/volume) 107 mg/dL 70-105 Serum or plasma calcium measurement (mass/volume) 8.0 mg/dL 8.5-10.1 Serum or plasma total bilirubin measurement (mass/volume) 0.4 mg/dL 0.1-1.0 Serum or plasma alkaline phosphatase measurement (enzymatic activity/volume) 54 U/L 40-136 Serum or plasma aspartate aminotransferase measurement (enzymatic activity/ volume) 29 U/L 5-34 Serum or plasma alanine aminotransferase measurement (enzymatic activity/volume ) 44 U/L 0-55 Serum or plasma protein measurement (mass/volume) 5.0 g/dL 6.4-8.2 Serum or plasma albumin measurement (mass/volume) 3.2 g/dL 3.2-4.5 Magnesium - 03/30/16 05:53 Magnesium 2.4 mg/dL 1.8-2.4 Serum or plasma troponin i.cardiac measurement (mass/volume) - 03/30/16 05:53 Serum or plasma troponin i.cardiac measurement (mass/volume) < ng/ mL <0.30 Lipid 1996 panel - 03/30/16 05:53 Serum or plasma triglyceride measurement (mass/volume) 63 mg/dL <150 Serum or plasma cholesterol measurement (mass/volume) 179 mg/dL < 200 Serum or plasma cholesterol in HDL measurement (mass/volume) 74 mg/ dL 40-60 Cholesterol in LDL [mass/volume] in serum or plasma by direct assay 88 mg/dL 1-129 Serum or plasma cholesterol in VLDL measurement (mass/volume) 13 mg/ dL 5-40 THYROID STIMULATING HORMONE - 03/30/16 05:53 THYROID STIMULATING HORMONE 2.06 u[iU]/mL 0.35-4.94 Activated partial thromboplastin time (aPTT) in platelet poor plasma bycoagulation assay - 03/30/16 13:39 Activated partial thromboplastin time (aPTT) in platelet poor plasma bycoagulation assay 108 s 24-35 Automated blood complete blood count (hemogram) panel - 03/31/16 04:06 Blood leukocytes automated count (number/volume) 10.9 10*3/uL 4.3-11.0 Blood erythrocytes automated count (number/volume) 3.42 10*6/uL 4.35-5.85 Venous blood hemoglobin measurement (mass/volume) 11.2 g/dL 11.5-16.0 Blood hematocrit (volume fraction) 35 % 35-52 Automated erythrocyte mean corpuscular volume 102 [foz_us] 80-99 Automated erythrocyte mean corpuscular hemoglobin (mass per erythrocyte) 33 pg 25-34 Automated erythrocyte mean corpuscular hemoglobin concentration measurement ( mass/volume) 32 g/dL 32-36 Automated erythrocyte distribution width ratio 14.3 % 10.0-14.5 Automated blood platelet count (count/volume) 201 10*3/uL 130-400 Automated blood platelet mean volume measurement 10.4 [foz_us] 7.4-10.4 Whole blood basic metabolic panel - 03/31/16 04:06 Serum or plasma sodium measurement (moles/volume) 137 mmol/L 135-145 Serum or plasma potassium measurement (moles/volume) 4.6 mmol/L 3.6-5.0 Serum or plasma chloride measurement (moles/volume) 112 mmol/L 98-107 Carbon dioxide 17 mmol/L 21-32 Serum or plasma anion gap determination (moles/volume) 8 mmol/L 5-14 Serum or plasma urea nitrogen measurement (mass/volume) 11 mg/dL 7-18 Serum or plasma creatinine measurement (mass/volume) 0.65 mg/dL 0.60-1.30 Serum or plasma urea nitrogen/creatinine mass ratio 17 NRG Serum or plasma creatinine measurement with calculation of estimated glomerular filtration rate > NRG Serum or plasma glucose measurement (mass/volume) 106 mg/dL 70-105 Serum or plasma calcium measurement (mass/volume) 7.7 mg/dL 8.5-10.1 Encounters ACCT No. Visit Date/Time Discharge Status Pt. Type Provider Facility Loc./Unit Complaint [id number] 07/07/2018 09:56:00 07/07/2018 13:00:00 DIS Outpatient BEKA LEVY DO Via [facility] ENDO EPIGASTRIC ABD PAIN [id number] 07/06/2018 08:30:00 07/06/2018 08:52:00 DIS Outpatient BEKA LEVY DO [facility] PREOP EGD [id number] 06/16/2018 11:21:00 06/16/2018 23:59:59 CLS Outpatient LEVY BEKA LEE [facility] CARD EPIGASTRIC ABDOMINAL PAIN [id number] 06/06/2018 07:35:00 06/06/2018 23:59:59 CLS Outpatient BEKA LEVY DO [facility] RAD EPIGASTRIC ABDOMINAL PAIN [id number] 06/07/2017 08:44:00 06/07/2017 12:00:00 DIS Outpatient BEKA LEVY DO [facility] ENDO HX OF BARRETTS [id number] 06/06/2017 09:00:00 06/06/2017 09:36:00 DIS Outpatient BEKA LEVY DO [facility] PREOP EGD [id number] 03/18/2017 10:57:00 03/18/2017 23:59:59 CLS Outpatient JUVENAL OREILLY MD [facility] RAD SCREENING [id number] 09/24/2016 10:54:00 09/24/2016 11:49:00 DIS Outpatient HANK HESTER MD [facility] CARD DISC DISORDER M51.16 [id number] 07/22/2016 11:52:00 07/22/2016 23:59:59 CLS Outpatient AMIRA MIMS [facility] CARD PALPITATIONS,CAD, HTN [id number] 03/29/2016 23:50:00 03/31/2016 11:10:00 DIS Outpatient JUVENAL OREILLY MD [facility] CATH CP;CHANGES IN EKG; SMOKER [id number] 03/25/2016 16:38:00 03/25/2016 23:59:59 CLS Outpatient JADA BUCHANAN [facility] CARD CHEST PAIN [id number] 03/18/2016 18:30:00 03/19/2016 17:45:00 DIS Inpatient JUVENAL OREILLY MD [facility] 4TH LUMBAR DISC DISEASE [id number] 10/19/2015 14:30:00 10/19/2015 23:59:59 CLS Outpatient ZACKARY VELAZQUEZ [facility] QUICK [id number] 08/13/2015 14:11:00 08/13/2015 23:59:59 CLS Outpatient CHRIS SUAZO APRN [facility] RAD LEFT HAND NUMBNESS, POOR CIRCULATION [id number] 06/21/2014 15:20:00 06/21/2014 23:59:59 CLS Outpatient AUSTIN MATTHEWS MD [facility] RAD SCREENING [id number] 01/16/2014 10:10:00 01/16/2014 15:00:00 DIS Outpatient ABISAI WATSON MD [facility] RIGHT KNEE TORN LATERAL MENISECTOMY [id number] 01/15/2014 14:26:00 01/15/2014 23:59:59 CLS Outpatient ABISAI WATSON MD [facility] PREOP RIGHT KNEE TORN LATERAL MENISCUS [id number] 10/11/2012 09:33:00 10/11/2012 23:59:59 CLS Outpatient AUSTIN MATTHEWS MD [facility] [id number] 07/21/2012 10:54:00 Document Registration [id number] 07/12/2011 08:07:00 Document Registration [id number] 07/09/2011 07:01:00 Document Registration [id number] 07/07/2011 10:25:00 Document Registration [id number] 06/14/2011 15:57:00 Document Registration [id number] 05/19/2011 08:17:00 Document Registration [id number] 05/18/2011 10:57:00 Document Registration
== END 2018-07-07 13:00 | disposition home or self-care (01) ==
LOC: ENDO 09:56
PROVIDERS: ATTEND Surgery
DX: K21.9 Gastro-esophageal reflux disease without esophagitis (principal); K44.9 Diaphragmatic hernia without obstruction or gangrene; I25.10 Atherosclerotic heart disease of native coronary artery without angina pectoris; I48.0 Paroxysmal atrial fibrillation; I10 Essential (primary) hypertension; F17.210 Nicotine dependence, cigarettes, uncomplicated; Z79.82 Long term (current) use of aspirin; Z79.899 Other long term (current) drug therapy

== ENCOUNTER 2021-01-06 05:43 | Outpatient (RCR) | payer BC ==
[~2021-01-06] VITALS: Ht 157.5 cm; Wt 59.3 kg
[~2021-01-06 05:43] MED LIST changes: +ASPI-1238 PO; -ASPI-983 PO; -METO-370 PO; +METO50TA7 PO; -PANT40TA3 PO; +PANT40TA52 PO; -TRAM50TA2 PO; +TRM50T PO
[2021-01-06] MEDS ORDERED: ASPI-999 PO (15:49)
== END 2021-01-08 15:18 | disposition home or self-care (01) ==
LOC: PREOP 05:43
PROVIDERS: ATTEND Surgery
DX: Z01.818 Encounter for other preprocedural examination (principal); K22.70 Barrett's esophagus without dysplasia; Z86.010 Personal history of colon polyps; Z20.822 Contact with and (suspected) exposure to COVID-19
CPT/HCPCS: 87635

== ENCOUNTER 2021-01-13 07:22 | Day surgery (SDC) | payer BC ==
[~2021-01-13] VITALS: Ht 157.5 cm; Wt 59.3 kg
[~2021-01-13 07:22] MED LIST changes: +ASPI-999 PO
[2021-01-13] MEDS ORDERED: LACTATED RINGERS 1,000 ML IV STA (07:38)
[2021-01-13] MEDS ORDERED: HURRICAINE EXT TUBE (BENZOCAINE) XX PRN (07:45)
[2021-01-13 07:47] VITALS: BP 127/87
[2021-01-13] MEDS ORDERED: LACTATED RINGERS 1,000 ML IV ONE (07:58)
[2021-01-13] MEDS ORDERED: PROPOFOL INJECTION 50 ML IV ONE ×2 (08:01→08:30)
--- NOTE | 2021-01-13 08:03 | Progress Note-Pre Operative ---
Pre-Operative Progress Note H&P Reviewed The H&P was reviewed, patient examined and no changes noted. Date Seen by Provider: Jan 13, 2021 Time Seen by Provider: 08:03 Date H&P Reviewed: Jan 13, 2021 Time H&P Reviewed: 08:03 Pre-Operative Diagnosis: hx barretts, hx colon polyps BEKA LEVY DO Jan 13, 2021 08:03
[2021-01-13 08:55] VITALS: BP 102/51
--- NOTE | 2021-01-13 08:59 | Progress Note-Post Operative ---
Post-Operative Progess Note Surgeon (s)/Audio Recording Engineer (s) Surgeon BEKA LEVY DO Audio Recording Engineer: na Pre-Operative Diagnosis hx barretts, hx colon polyps Post-Operative Diagnosis small h/h, colon polpys Procedure & Operative Findings Date of Procedure 01/13/21 Procedure Performed/Findings egd c biopsies, colonoscopy hot bx polypectomy x 6 Anesthesia Type per retail merchandiser technician Estimated Blood Loss Estimated blood loss (mL): none Specimens/Packing Specimens Removed antrum, ge, colon polyps BEKA LEVY DO Jan 13, 2021 08:59
--- NOTE | 2021-01-13 08:59 | Anesthesia-General Post-Op ---
MAC Patient Condition Mental Status/LOC: Same as Preop Cardiovascular: Satisfactory Nausea/Vomiting: Absent Respiratory: Satisfactory Pain: Controlled Complications: Absent Post Op Complications Complications None Follow Up Care/Instructions Patient Instructions None needed. Anesthesiology Discharge Order Discharge Order Patient is doing well, no complaints, stable vital signs, no apparent adverse anesthesia problems. No complications reported per nursing. CLEMENTE VICENTE CRNA Jan 13, 2021 08:59
[2021-01-13 09:00] VITALS: BP 100/59
[2021-01-13] MEDS ORDERED: FAMO-119 PO (09:00)
--- NOTE | 2021-01-13 09:01 | Discharge Inst-Simple/Standard ---
Discharge Inst-Standard Discharge Medications New, Converted or Re-Newed RX: Other (over the counter) Patient Instructions/Follow Up Plan of Care/Instructions/FU: 2-3 weeks carmen Activity as Tolerated: Yes Discharge Diet: Regular Diet (high fiber) BEKA LEVY DO Jan 13, 2021 09:01
[2021-01-13 09:05] VITALS: BP 107/65
[2021-01-13 09:35] VITALS: BP 112/67
[2021-01-13 10:00] VITALS: BP 112/67
--- NOTE | 2021-01-13 12:44 | OPERATIVE REPORT ---
DATE OF SERVICE: 01/13/2021 PREOPERATIVE DIAGNOSES: History of polyps, history of Sin's esophagus. POSTOPERATIVE DIAGNOSES: Small hiatal hernia, colon polyps. SURGEON: Beka Smith DO ANESTHESIA: Per DRILL BIT SHARPENER. PROCEDURE: EGD with biopsies, colonoscopy with hot biopsy polypectomy x6. ESTIMATED BLOOD LOSS: None. COMPLICATIONS: None. INDICATIONS: The patient is a 60-year-old female needing EGD and colonoscopy for further evaluation of history of Sin's and history of polyps. She understands risks and benefits of procedure and wished to proceed with procedure. Consent was signed in the chart. DESCRIPTION OF PROCEDURE: The patient was taken to the endoscopy suite, placed in left lateral recumbent position. Timeout was performed. Scope was inserted in mouth, down the esophagus, stomach and into the duodenum without difficulty. No polyps, masses or ulcerations within the duodenum. Scope was slowly retracted back into the stomach where it was further insufflated. Biopsy of the antrum was obtained. No polyps, masses or ulcerations. Scope was retroflexed noting a very small hiatal hernia, no other pathology. Scope was returned to its normal position, slowly withdrawn to distal esophagus, very small patch of Sni's. Multiple biopsies of the area were obtained. Scope was then slowly retracted back until completely removed, noting no other pathology. Digital rectal exam was performed. No palpable polyps, masses or ulcerations. Scope was inserted in the rectum, advanced all the way to cecum with minimal difficulty. Prep was adequate. Scope was slowly retracted back. No polyps, masses or ulcerations within the cecum. In the ascending colon, a small polyp was present, which hot biopsy polypectomy was performed. Scope was then continuously retracted back into the transverse colon where another small polyp was located, which hot biopsy polypectomy was performed. Scope was then continued slowly retracted back into the descending colon, small polyp was present, which hot biopsy polypectomy was performed. Scope was then continuously retracted back. No polyps, masses or ulcerations within the sigmoid colon, a few diverticula were present. Scope was then continuously retracted back into the rectum where three polyps were present, which hot biopsy polypectomy was performed. Scope was inserted and retracted multiple times and then removed, noting no other pathology. The patient tolerated procedure well without any complications. She was taken to recovery room in stable condition. RECOMMENDATIONS: The patient will need repeat colonoscopy in 3 to 5 years. Any issues before that be seen at that time. We would recommend repeat EGD in likely 3 years depending upon pathology. CC: Dr. Prince. Job ID: [id number] DocumentID: [id number] Dictated Date: 01/13/2021 09:05:03 Model Maker Date: 01/13/2021 12:43:18 Dictated By: BEKA SMITH DO
== END 2021-01-13 10:00 ==
LOC: ENDO 07:22
PROVIDERS: ATTEND Surgery
DX: Z12.11 Encounter for screening for malignant neoplasm of colon (principal); D12.2 Benign neoplasm of ascending colon; D12.3 Benign neoplasm of transverse colon; D12.4 Benign neoplasm of descending colon; D12.8 Benign neoplasm of rectum; K22.8 Other specified diseases of esophagus; K44.9 Diaphragmatic hernia without obstruction or gangrene; I10 Essential (primary) hypertension; I25.10 Atherosclerotic heart disease of native coronary artery without angina pectoris; I48.91 Unspecified atrial fibrillation; K21.9 Gastro-esophageal reflux disease without esophagitis; K31.89 Other diseases of stomach and duodenum; F17.210 Nicotine dependence, cigarettes, uncomplicated; Z79.82 Long term (current) use of aspirin; Z79.899 Other long term (current) drug therapy; Z79.02 Long term (current) use of antithrombotics/antiplatelets

== ENCOUNTER → 2021-03-06 | Outpatient (CLI) | payer BC ==
[~2021-03-06] MED LIST changes: +FAMO-119 PO
--- NOTE | 2021-03-09 11:41 | Diagnostic Imaging Report ---
INDICATION: Routine screening. COMPARISON: 03/18/2017 and 06/21/2014. TECHNIQUE: 2D and 3D bilateral screening mammography was performed with CAD. FINDINGS: Both breasts are heterogeneously dense, limiting the sensitivity of mammography. There is a density in the central left breast on the CC view at the nipple line which is indeterminate. This may represent superimposed tissue but additional views are recommended. No definite correlate is identified on the MLO view but this may be superiorly located. The right breast is unremarkable. No malignant-appearing microcalcifications are seen. There are benign calcifications present. The axillae are unremarkable. IMPRESSION: Left breast density. Additional views are recommended for further evaluation. ACR BI-RADS Category 0: Incomplete. (Needs additional imaging evaluation). Result letter will be mailed to the patient. Note: At least 10% of breast cancer is not imaged by mammography. Dictated by: Dictated on workstation # [id number]
== END ==
LOC: RAD 15:45
PROVIDERS: ATTEND Family Medicine
DX: Z12.31 Encounter for screening mammogram for malignant neoplasm of breast (principal)
CPT/HCPCS: 77063; 77067

== ENCOUNTER → 2021-03-20 | Outpatient (CLI) | payer BC ==
--- NOTE | 2021-03-20 16:06 | Diagnostic Imaging Report ---
INDICATION: Right breast density. CORRELATION is made with diagnostic mammogram earlier the same day and screening mammogram from 03/06/2021. Sonographic interrogation of the upper half of the right breast was performed. No sonographic abnormality is identified. No solid or cystic mass is detected. IMPRESSION: BI-RADS Category 1 No sonographic abnormality is seen. The patient may return to routine annual screening mammography. ACR BI-RADS Category 1: Negative. Result letter will be mailed to the patient. Note: At least 10% of breast cancer is not imaged by mammography. Dictated by: Dictated on workstation # [id number]
--- NOTE | 2021-03-20 17:38 | Diagnostic Imaging Report ---
INDICATION: Left breast density. Patient presents for additional views. COMPARISON: Correlation is made with prior mammogram from 03/06/2021. EXAMINATION: Unilateral left 2D and 3D diagnostic mammography was performed. This includes spot compression CC and ML views as well as conventional 90 degree lateral views. FINDINGS: Additional views show some residual density in the upper left breast 12 o'clock location, approximately 6 cm from the nipple. This may represent fibroglandular tissue. Ultrasound is recommended. No suspicious microcalcifications are seen. IMPRESSION: There is some residual density in the upper left breast approximately 5-6 cm from the nipple, likely fibroglandular tissue. Even so, directed sonographic interrogation of this area is recommended to exclude underlying mass. This will be performed today. ACR BI-RADS Category 0: Incomplete. (Needs additional imaging evaluation). Result letter will be mailed to the patient. Note: At least 10% of breast cancer is not imaged by mammography. Dictated by: Dictated on workstation # [id number]
== END ==
LOC: RAD 13:50
PROVIDERS: ATTEND Family Medicine
DX: R92.2 Inconclusive mammogram (principal)
CPT/HCPCS: 76642; 77065; G0279

== ENCOUNTER → 2022-03-24 | Outpatient (CLI) | payer BC ==
--- NOTE | 2022-03-24 19:02 | Diagnostic Imaging Report ---
INDICATION: Routine screening. COMPARISON: Prior mammograms from 03/06/2021 and 03/18/2017. EXAMINATION: 2D and 3D bilateral screening mammography was performed with CAD. The current study was also evaluated with a Computer Aided Detection (CAD) system. FINDINGS: Scattered fibroglandular densities are identified, bilaterally. The parenchymal pattern is stable. No mass or malignant-appearing microcalcifications are seen. There are benign calcifications. Axillae are unremarkable. IMPRESSION: No mammographic features suspicious for malignancy are identified. ACR BI-RADS Category 2: Benign findings. Result letter will be mailed to the patient. Note: At least 10% of breast cancer is not imaged by mammography. Dictated by: Dictated on workstation # [id number]
== END ==
LOC: RAD 15:22
PROVIDERS: ATTEND Family Medicine
DX: Z12.31 Encounter for screening mammogram for malignant neoplasm of breast (principal)
CPT/HCPCS: 77063; 77067

== ENCOUNTER → 2022-06-07 | Outpatient (CLI) | payer BC ==
--- NOTE | 2022-06-07 17:16 | Diagnostic Imaging Report ---
INDICATION: Right lower rib pain PA chest and 2 views of the right ribs are obtained. The lungs are clear. There are no effusions or pneumothoraces. There are no displaced rib fractures seen. IMPRESSION: Negative chest and right ribs. Dictated by: Dictated on workstation # [id number]
== END ==
LOC: RAD 15:07
PROVIDERS: ATTEND Family Medicine
DX: R07.81 Pleurodynia (principal); R05.9 Cough, unspecified
CPT/HCPCS: 71101

== ENCOUNTER 2022-12-07 20:23 | Emergency (ER) | payer BC ==
[~2022-12-07 20:23] MED LIST changes: -ORPH100T PO; +ORPH100T3 PO
[2022-12-07] MEDS ORDERED: CYCL10TA25 PO (20:43)
--- NOTE | 2022-12-07 20:43 | ED Neck-Back Pain/Injury ---
General Stated Complaint: NECK PAIN Source of Information: Patient Exam Limitations: No Limitations History of Present Illness Date Seen by Provider: Dec 07, 2022 Time Seen by Provider: 20:27 Initial Comments 62yoF with PMH of chronic back pain coming in due to neck pain. She had a radiofrequency ablation done of the nerves in her lower back earlier today for chronic back pain. She does follow with pain management for this and has been for years. She intermittently has neck pain, this started yesterday. The pain is sharp, worse with movement, does not really seem to radiate too much down her arms with no weakness or numbness noted. Denies any trauma, fever, history of diabetes, and no history of IV drug use. Otherwise denying any other acute complaints. Had ibuprofen and Tylenol earlier today which did help some. She had 2 Valium in the morning as well for the procedure. She says she has had this exact pain in the past, and a shot of Toradol took care of it. Allergies and Home Medications Allergies Coded Allergies: No Known Drug Allergies (Unverified , 07/09/11) Patient Home Medication List Home Medication List Reviewed: Yes Aspirin (Aspirin) 81 Mg Tab.chew, 81 MG PO DAILY, (Reported) Entered as Reported by: JONNY MOSS on 01/06/21 1549 Famotidine (Pepcid) 20 Mg Tablet, 20 MG PO BID PRN Prescribed by: BEKA LEVY on 01/13/21 0900 Sucralfate (Sucralfate) 1 Gm Tablet, 1 GM PO ACHS, (Reported) Entered as Reported by: SLIME ARAGON on 06/06/17 0934 Review of Systems Constitutional: No fever EENTM: no symptoms reported Respiratory: no symptoms reported Cardiovascular: no symptoms reported Gastrointestinal: no symptoms reported Genitourinary: no symptoms reported Musculoskeletal: see HPI Skin: no symptoms reported Psychiatric/Neurological: No Symptoms Reported Past Qvdwfcg-Djahnw-Dvejdo Hx Immunizations Up To Date Tetanus Booster (TDap): Unknown First/Initial COVID19 Vaccinat: 07/10/2020 Second COVID19 Vaccination Yaakov: 08/15/2020 Seasonal Allergies Seasonal Allergies: No Past Medical History Surgeries: Yes (knee arthroscopy) Hysterectomy, Orthopedic, Tonsillectomy Respiratory: No Cardiac: Yes (mitral valve prolapse) Valvular Heart Disease Neurological: Yes Headaches /Migraines Reproductive Disorders: No Genitourinary: No Gastrointestinal: Yes Gastroesophageal Reflux, Sin's Esophagus Musculoskeletal: Yes Arthritis, Rheumatoid Arthritis, Chronic Back Pain Endocrine: No HEENT: No Cancer: No Psychosocial: No Integumentary: No Blood Disorders: No Family Medical History Diabetes mellitus 19 FATHER FH: skin cancer 19 FATHER Hypertension 19 FATHER 19 MOTHER G8 BROTHER Myocardial infarction 19 FATHER Thyroid disease 19 MOTHER Heart Disease, Cancer, Diabetes, Hypertension Physical Exam Vital Signs Capillary Refill : Height, Weight, BMI Height: 5'2.00" Weight: 131lbs. 0.0oz. 59.406000xi; 23.90 BMI Method:Stated General Appearance: No Apparent Distress, WD/WN HEENT: PERRL/EOMI, Normal ENT Inspection, Pharynx Normal Neck: Full Range of Motion, Normal Inspection, Non Tender, Supple, Other (Patient of the neck which recreates her symptoms, tender to palpation along the musculature on the lateral parts of the neck) Cardiovascular: Regular Rate, Rhythm, No Edema, Normal Peripheral Pulses Respiratory: Chest Non Tender, Lungs Clear, Normal Breath Sounds, No Accessory Muscle Use, No Respiratory Distress Neurologic/Psychiatric: Alert, Oriented x3, No Motor/Sensory Deficits, Normal Mood/Affect Skin: Normal Color, Warm/Dry Progress/Results/Core Measures Results/Orders My Orders Orders - LEANN CHARLES MD Ketorolac Injection (Toradol Injection) (12/07/22 20:45) Tramadol Tablet (Ultram Tablet) (12/07/22 20:45) Progress Progress Note : Progress Note 62-year-old female with history coming in due to neck pain. ABCs were intact and vitals were stable on presentation. She is neurovascularly intact on exam. Physical exam with neck tenderness along the musculature with complete recreation of her symptoms with any range of motion of her neck. No fever or signs of meningitis. No trauma, this is consistent with prior episodes, no imaging indicated today. She does follow with pain management for similar symptoms. We will give her a shot of Toradol as well as tramadol here followed by prescription for Flexeril. I believe she is otherwise stable for discharge with outpatient follow-up. She was sent home with strict return precautions Departure Impression Primary Impression: Neck pain Disposition: HOME, SELF-CARE Condition: Stable Departure-Patient Inst. Decision time for Depature: 20:50 Referrals: JANET REYES DO (PCP/Family) Primary Care Physician Patient Instructions: Neck Pain ED Add. Discharge Instructions: This seems to be from sore muscles in your neck. We recommend using a heating pad at home, alternating between ibuprofen and Tylenol, and you can also use uuqw-bnm-[id number] creams for it. A prescription will be sent to your pharmacy for muscle relaxer. Follow-up with your regular doctor if you are not seeing improvement after the next 1 to 2 weeks any weakness or numbness that is severe on 1 side of her body Scripts Cyclobenzaprine HCl (Cyclobenzaprine HCl) 10 Mg Tablet 10 MG PO Q8H PRN for SPASMS for 5 Days, #15 TAB 0 Refills Prov: LEANN CHARLES MD 12/07/22 Work/School Note: Work Release Form Date Seen in the Emergency Department: Dec 07, 2022 Return to Work: Dec 09, 2022 Restrictions: No Restrictions LEANN CHARLES MD Dec 07, 2022 20:43
[2022-12-07] MEDS ORDERED: KETOROLAC 30 MG/ML VIAL IM ONE (20:45)
[2022-12-07 21:03] VITALS: BP 173/91
== END 2022-12-07 21:02 | disposition home or self-care (01) ==
LOC: EDUNIT# 20:23 → ER 20:24
DX: M54.2 Cervicalgia (principal)

== ENCOUNTER → 2022-12-09 | Outpatient (CLI) | payer BC ==
[~2022-12-09] MED LIST changes: +CYCL10TA25 PO
--- NOTE | 2022-12-09 18:00 | Diagnostic Imaging Report ---
CLINICAL INDICATION: Patient with neck pain. EXAM: X-ray of the cervical spine, multiple views. COMPARISON: None. FINDINGS: There is straightening of the cervical spine posture. There is no acute cervical spine fracture or dislocation. There are mildly hypertrophic spurs involving the cervical spine. There is mild to moderate loss of disk space height involving the C4-C7 levels. There is no prevertebral soft tissue swelling. IMPRESSION: There is cervical spine degenerative disease with no acute fracture. Dictated by: Dictated on workstation # [id number]
== END ==
LOC: RAD 17:29
PROVIDERS: ATTEND Family Medicine
DX: M50.30 Other cervical disc degeneration, unspecified cervical region (principal)
CPT/HCPCS: 72040

== ENCOUNTER → 2023-03-25 | Outpatient (CLI) | payer BC ==
--- NOTE | 2023-03-28 08:27 | Diagnostic Imaging Report ---
INDICATION: Routine screening. Comparison is made with prior mammogram from 03/24/2022 and 03/06/2021. 2-D and 3-D bilateral screening mammography was performed with CAD. Scattered fibroglandular densities are identified bilaterally. The parenchymal pattern is stable. There are scattered benign calcifications. No mass or malignant-appearing microcalcifications are identified. Axillae are unremarkable. IMPRESSION: No mammographic features suspicious for malignancy are identified. ACR BI-RADS Category 2: Benign findings. Result letter will be mailed to the patient. Note: At least 10% of breast cancer is not imaged by mammography. BI-RADS Category 2 Dictated by: Dictated on workstation # [id number]
== END ==
LOC: RAD 15:15
PROVIDERS: ATTEND Family Medicine
DX: Z12.31 Encounter for screening mammogram for malignant neoplasm of breast (principal)
CPT/HCPCS: 77063; 77067